=== PATIENT | male | born 1970 | race Caucasian/White ===

== ENCOUNTER → 2017-09-18 16:52 | Outpatient (REF) | payer BC, SELFPAY ==
[2017-09-18 19:16] LABS: Basophils # 0.1 K/mm3 (0-0.2); Eosinophils # 0.2 K/mm3 (0.0-0.4); Eosinophils % 1.9 % (0.1-12.0); Hemoglobin 16.6 g/dL (14.1-18.0); Lymphocytes # 3.1 K/mm3 (0.7-4.5); Lymphocytes % 31.3 K/mm3 (10-50); Mean Corpuscular HGB Conc 32.5 g/dL (31.8-35.4); Mean Corpuscular Hemoglobin 29.7 pg (27.0-31.2); Mean Corpuscular Volume 91.5 fl (80-94); Mean Platelet Volume 7.8 fl (7.4-10.4); Monocytes # 0.8 K/mm3 (0.1-1.0); Monocytes % 8.5 % (1.7-9.3); Neutrophils # 5.6 K/mm3 (1.8-7.8); Neutrophils % 57.3 % (37.0-80.0); Platelet Count 533 K/mm3 (142-424); Red Blood Count 5.57 M/mm3 (4.60-6.20); Red Cell Distribution Width 12.9 % (11.5-17.5); White Blood Count 9.8 K/mm3 (4.8-10.8)
[2017-09-18 20:20] LABS: Erythrocyte Sedimentation Rate 18 mm/hr (0-15)
[2017-09-18 20:49] LABS: Alanine Aminotransferase 41 U/L (12-78); Albumin Level 4.7 gm/dL (3.4-5.0); Albumin/Globulin Ratio 1.2 (1.1-1.8); Alkaline Phosphatase 149 U/L (46-116); Anion Gap 15.2 mEq/L (5-15); Aspartate Amino Transferase 30 U/L (15-37); Bilirubin,Total 0.3 mg/dL (0.2-1.0); Blood Urea Nitrogen 16 mg/dL (7-18); Calcium 9.6 mg/dL (8.5-10.1); Carbon Dioxide 28 mmol/L (21.0-32.0); Chloride 103 mmol/L (98-107); Creatinine,Serum 0.82 mg/dL (0.70-1.30); Estimated Glomerular Filt Rate 100 ml/min (>60); GFR (African American) 121 ML/MIN (>60); Globulin 3.8 gm/dl (1.3-3.2); Glucose 59 mg/dL (74-106); Potassium 5.2 mmoL/L (3.5-5.1); Sodium 141 mmol/L (136-145); Thyroid Stimulating Hormone 0.94 uIU/ml (0.358-3.740); Total Protein,Serum 8.5 gm/dL (6.4-8.2)
[2017-09-19 13:44] LABS: Amphetamine/Metha Screen,Urine Negative ng/mL (<1000); Barbiturates Screen,Urine Negative ng/mL (<200); Benzodiazepines Screen,Urine Positive ng/mL (200); Cannabinoid Screen,Urine Positive ng/mL (<50); Cocaine Screen,Urine Negative ng/g (<300); Methadone Screen,Urine Negative ng/mL (<300); Opiate Screen,Urine Negative ng/mL (<300); Phencyclidine Screen,Urine Negative ng/mL (<25)
== END ==
LOC: LAB 16:52
PROVIDERS: Visit Provider Emergency Medicine
DX: R41.3 Other amnesia (principal); Z79.899 Other long term (current) drug therapy
CPT/HCPCS: 80053; 80305; 84439; 84443; 85025; 85651

== ENCOUNTER → 2017-09-19 09:55 | Outpatient (REF) | payer BC, SELFPAY | LOC: LAB 09:55 | PROVIDERS: Visit Provider Emergency Medicine ==

== ENCOUNTER → 2017-10-07 14:55 | Outpatient (CLI) | payer BC, SELFPAY ==
--- NOTE | 2017-10-07 14:58 | CT_ITS ---
CT head/brain wo con Ordering Physician: Bhavin Ring MD Patient Age: 47 years: Male HISTORY: Memory loss. No trauma. TECHNIQUE: Helical CT scanning performed through the head and brain and bone windows performed and reviewed. COMPARISON :None FINDINGS No acute intracranial findings. The brain with is normal limits no mass lesion. No territorial infarct. No subdural collection. Ventricles and basal cisterns appear satisfactory. There may be some very subtle early cerebral atrophy which is slightly more evident than typically seen for 47-year-old. Posterior fossa is unremarkable . Skull is intact. Scant mucosal thickening ethmoid air cells. Sphenoid and frontal sinuses clear. Maxillary sinuses not included Middle ear clear. IACs satisfactory. Mastoid air cells are fairly well-developed with a few opacified air cells inferiorly on right reflecting minor mastoid effusion. No acute findings here... IMPRESSION: 1. No acute intracranial findings. Note above
== END ==
PROVIDERS: PCP Emergency Medicine; Visit Provider Emergency Medicine
DX: R41.3 Other amnesia (principal)
CPT/HCPCS: 70450

== ENCOUNTER → 2017-10-16 14:47 | Outpatient (REF) | payer BC, SELFPAY ==
[2017-10-16 19:21] LABS: Amphetamine/Metha Screen,Urine Negative ng/mL (<1000); Barbiturates Screen,Urine Negative ng/mL (<200); Benzodiazepines Screen,Urine Positive ng/mL (200); Cannabinoid Screen,Urine Positive ng/mL (<50); Cocaine Screen,Urine Negative ng/g (<300); Methadone Screen,Urine Negative ng/mL (<300); Opiate Screen,Urine Negative ng/mL (<300); Phencyclidine Screen,Urine Negative ng/mL (<25)
== END ==
LOC: LAB 14:47
PROVIDERS: Visit Provider Emergency Medicine
DX: Z79.899 Other long term (current) drug therapy (principal)
CPT/HCPCS: 80305

== ENCOUNTER → 2017-11-13 17:01 | Outpatient (CLI) | payer SELFPAY ==
[2017-11-13 20:01] LABS: Amphetamine/Metha Screen,Urine Negative ng/mL (<1000); Barbiturates Screen,Urine Negative ng/mL (<200); Benzodiazepines Screen,Urine Positive ng/mL (200); Cannabinoid Screen,Urine Positive ng/mL (<50); Cocaine Screen,Urine Negative ng/g (<300); Methadone Screen,Urine Negative ng/mL (<300); Opiate Screen,Urine Negative ng/mL (<300); Phencyclidine Screen,Urine Negative ng/mL (<25)
== END ==
PROVIDERS: Visit Provider Emergency Medicine
DX: Z79.899 Other long term (current) drug therapy (principal)
CPT/HCPCS: 80305

== ENCOUNTER → 2017-12-11 14:11 | Outpatient (REF) | payer BC, SELFPAY ==
[2017-12-11 20:06] LABS: Amphetamine/Metha Screen,Urine Negative ng/mL (<1000); Barbiturates Screen,Urine Negative ng/mL (<200); Benzodiazepines Screen,Urine Negative ng/mL (200); Cannabinoid Screen,Urine Negative ng/mL (<50); Cocaine Screen,Urine Negative ng/g (<300); Methadone Screen,Urine Negative ng/mL (<300); Opiate Screen,Urine Negative ng/mL (<300); Phencyclidine Screen,Urine Negative ng/mL (<25)
== END ==
LOC: LAB 14:11
PROVIDERS: Visit Provider Emergency Medicine
DX: Z79.899 Other long term (current) drug therapy (principal)
CPT/HCPCS: 80305

== ENCOUNTER → 2018-01-08 16:34 | Outpatient (REF) | payer BC, SELFPAY ==
[2018-01-08 20:44] LABS: Amphetamine/Metha Screen,Urine Negative ng/mL (<1000); Barbiturates Screen,Urine Negative ng/mL (<200); Benzodiazepines Screen,Urine Positive ng/mL (200); Cannabinoid Screen,Urine Positive ng/mL (<50); Cocaine Screen,Urine Negative ng/g (<300); Methadone Screen,Urine Negative ng/mL (<300); Opiate Screen,Urine Positive ng/mL (<300); Phencyclidine Screen,Urine Negative ng/mL (<25)
== END ==
LOC: LAB 16:34
PROVIDERS: Visit Provider Emergency Medicine
DX: Z79.899 Other long term (current) drug therapy (principal)
CPT/HCPCS: 80305

== ENCOUNTER → 2018-02-10 08:35 | Outpatient (CLI) | payer BC, SELFPAY ==
[2018-02-11 13:08] LABS: Amphetamine/Metha Screen,Urine Negative ng/mL (<1000); Barbiturates Screen,Urine Negative ng/mL (<200); Benzodiazepines Screen,Urine Negative ng/mL (200); Cannabinoid Screen,Urine Positive ng/mL (<50); Cocaine Screen,Urine Negative ng/g (<300); Methadone Screen,Urine Negative ng/mL (<300); Opiate Screen,Urine Negative ng/mL (<300); Phencyclidine Screen,Urine Negative ng/mL (<25)
== END ==
PROVIDERS: Visit Provider Emergency Medicine
DX: Z79.899 Other long term (current) drug therapy (principal)
CPT/HCPCS: 80305

== ENCOUNTER → 2018-03-11 15:48 | Outpatient (REF) | payer BC, SELFPAY ==
[2018-03-11 18:44] LABS: Amphetamine/Metha Screen,Urine Negative ng/mL (<1000); Barbiturates Screen,Urine Negative ng/mL (<200); Benzodiazepines Screen,Urine Positive ng/mL (<200); Cannabinoid Screen,Urine Positive ng/mL (<50); Cocaine Screen,Urine Negative ng/mL (<300); Methadone Screen,Urine Negative ng/mL (<300); Opiate Screen,Urine Negative ng/mL (<300); Phencyclidine Screen,Urine Negative ng/mL (<25)
== END ==
LOC: LAB 15:48
PROVIDERS: Visit Provider Emergency Medicine
DX: M54.9 Dorsalgia, unspecified (principal)
CPT/HCPCS: 80305

== ENCOUNTER → 2018-04-09 15:29 | Outpatient (REF) | payer BC, SELFPAY ==
[2018-04-09 16:57] LABS: Amphetamine/Metha Screen,Urine Negative ng/mL (<1000); Barbiturates Screen,Urine Negative ng/mL (<200); Benzodiazepines Screen,Urine Positive ng/mL (<200); Cannabinoid Screen,Urine Positive ng/mL (<50); Cocaine Screen,Urine Negative ng/mL (<300); Methadone Screen,Urine Negative ng/mL (<300); Opiate Screen,Urine Negative ng/mL (<300); Phencyclidine Screen,Urine Negative ng/mL (<25)
== END ==
LOC: LAB 15:29
PROVIDERS: Visit Provider Emergency Medicine
DX: M54.9 Dorsalgia, unspecified (principal); Z79.891 Long term (current) use of opiate analgesic
CPT/HCPCS: 80305

== ENCOUNTER → 2018-06-17 13:46 | Outpatient (CLI) | payer BC, SELFPAY ==
[2018-06-17 14:41] LABS: Amphetamine/Metha Screen,Urine Negative ng/mL (<1000); Barbiturates Screen,Urine Negative ng/mL (<200); Benzodiazepines Screen,Urine Positive ng/mL (<200); Cannabinoid Screen,Urine Positive ng/mL (<50); Cocaine Screen,Urine Negative ng/mL (<300); Methadone Screen,Urine Negative ng/mL (<300); Opiate Screen,Urine Negative ng/mL (<300); Phencyclidine Screen,Urine Negative ng/mL (<25)
== END ==
PROVIDERS: PCP Nurse Practitioner Family; Visit Provider Nurse Practitioner Family
DX: Z79.899 Other long term (current) drug therapy (principal)
CPT/HCPCS: 80305

== ENCOUNTER → 2018-07-16 15:00 | Outpatient (CLI) | payer BC, SELFPAY ==
[2018-07-16 15:54] LABS: Amphetamine/Metha Screen,Urine Negative ng/mL (<1000); Barbiturates Screen,Urine Negative ng/mL (<200); Benzodiazepines Screen,Urine Negative ng/mL (<200); Cannabinoid Screen,Urine Positive ng/mL (<50); Cocaine Screen,Urine Negative ng/mL (<300); Methadone Screen,Urine Negative ng/mL (<300); Opiate Screen,Urine Negative ng/mL (<300); Phencyclidine Screen,Urine Negative ng/mL (<25)
== END ==
PROVIDERS: Visit Provider Emergency Medicine
DX: Z79.899 Other long term (current) drug therapy (principal)
CPT/HCPCS: 80305

== ENCOUNTER → 2018-08-13 14:10 | Outpatient (CLI) | payer BC, SELFPAY ==
[2018-08-13 16:19] LABS: Amphetamine/Metha Screen,Urine Negative ng/mL (<1000); Barbiturates Screen,Urine Negative ng/mL (<200); Benzodiazepines Screen,Urine Negative ng/mL (<200); Cannabinoid Screen,Urine Positive ng/mL (<50); Cocaine Screen,Urine Negative ng/mL (<300); Methadone Screen,Urine Negative ng/mL (<300); Opiate Screen,Urine Negative ng/mL (<300); Phencyclidine Screen,Urine Negative ng/mL (<25)
[2018-08-26 11:18] LABS: Oxycodone (GC/MS) 321
[2018-08-26 11:25] LABS: Opiates Negative
[2018-08-26 11:26] LABS: Alprazolam Negative; Benzodiazepines Negative; Flurazepam Negative; Lorazepam Negative
[2018-08-26 11:27] LABS: Clonazepam Negative; Midazolam Negative; Temazepam Negative; Triazolam Negative
== END ==
PROVIDERS: Visit Provider Emergency Medicine
DX: Z79.899 Other long term (current) drug therapy (principal)
CPT/HCPCS: 80305; 80346; 80361; 80365; G0480

== ENCOUNTER → 2018-10-06 14:08 | Outpatient (CLI) | payer BC, SELFPAY ==
--- NOTE | 2018-10-06 14:14 | XR_ITS ---
XR foot wt bearing RT 3V, XR foot wt bearing LT 3V Ordering Physician: Linda Milligan DPM Patient Age: 48 years: Male HISTORY: ITS.REASON: pain TECHNIQUE: Right foot- 3 view weightbearing. Left foot- 3 view weightbearing. COMPARISON :March 2017. Right & left foot RIGHT FOOT Mild hallux valgus deformity again seen. Similar degree.. Mild degenerative changes first MTP joint.. Less evident mild arthritic changes and hypertrophic changes changes along the dorsal aspect talonavicular joint.. Lateral view. Demonstrate pes planus again similar to previous study. Arthritic changes most evident anteriorly aspect ankle joint are most notable. Subchondral cystic changes sclerosis and marginal osteophytes most evident and nearly. There is also some posterior hypertrophy along with prominent posterior process of talus noted...... Plantar Calcaneal spur noted 11 mm mm length. & Similar to previous study. Also generous Spurring posterior calcaneus at the insertion of Achilles tendon again noted. IMPRESSION--------- 1. Arthritic changes most evident anterior aspect of the ankle joint. Also developing arthritic changes talonavicular joint. First MTP joint 2.. Stable Hallux valgus 3. Pes planus. . LEFT FOOT Mild hallux valgus deformity again seen. Similar degree.. Mild degenerative changes first MTP joint.. Arthritic changes at the navicular-first cuneiform articulation again noted with some irregularity and subchondral cystic changes dorsally here. Lateral view. Demonstrate pes planus again similar to previous study. Early Osteophytic changes are seen at the ankle joint anterior and posterior aspect of the dural ankle joint. Prominent posterior process of talus are noted.... Prominent Plantar Calcaneal spur noted up to 14 mm length. & Similar to previous study. Also generous Spurring posterior calcaneus at the insertion of Achilles tendon again noted. IMPRESSION. 1. Stable hallux valgus. 2. Pes planus. 3. At the left foot Arthritic changes most evident at the navicular-first cuneiforms articulation.. Also suggestion of mild arthritic changes at the ankle joint., First MTP joint; & first tarsal metatarsal joint.
== END ==
PROVIDERS: PCP Emergency Medicine; Visit Provider Podiatrist
DX: M79.672 Pain in left foot (principal); M79.671 Pain in right foot
CPT/HCPCS: 73630

== ENCOUNTER → 2018-10-13 14:17 | Outpatient (CLI) | payer BC, SELFPAY ==
[2018-10-13 15:16] LABS: Amphetamine/Metha Screen,Urine Negative ng/mL (<1000); Barbiturates Screen,Urine Negative ng/mL (<200); Benzodiazepines Screen,Urine Negative ng/mL (<200); Cannabinoid Screen,Urine Positive ng/mL (<50); Cocaine Screen,Urine Negative ng/mL (<300); Methadone Screen,Urine Negative ng/mL (<300); Opiate Screen,Urine Negative ng/mL (<300); Phencyclidine Screen,Urine Negative ng/mL (<25)
== END ==
PROVIDERS: Visit Provider Emergency Medicine
DX: Z79.899 Other long term (current) drug therapy (principal)
CPT/HCPCS: 80305

== ENCOUNTER → 2018-12-10 14:30 | Outpatient (CLI) | payer BC, SELFPAY ==
[2018-12-10 15:51] LABS: Amphetamine/Metha Screen,Urine Negative ng/mL (<1000); Barbiturates Screen,Urine Negative ng/mL (<200); Benzodiazepines Screen,Urine Negative ng/mL (<200); Cannabinoid Screen,Urine Positive ng/mL (<50); Cocaine Screen,Urine Negative ng/mL (<300); Methadone Screen,Urine Negative ng/mL (<300); Opiate Screen,Urine Negative ng/mL (<300); Phencyclidine Screen,Urine Negative ng/mL (<25)
[2018-12-19 01:06] LABS: Alprazolam Negative (Cutoff=100); Benzodiazepines Negative ng/mL (Cutoff=100); Clonazepam Negative (Cutoff=100); Codeine Negative (Cutoff=100); Flurazepam Negative (Cutoff=100); Hydrocodone Positive (.); Hydromorphone Negative (Cutoff=100); Lorazepam Negative (Cutoff=100); Midazolam Negative (Cutoff=100); Morphine Negative (Cutoff=100); Temazepam Negative (Cutoff=100); Triazolam Negative (Cutoff=100)
[2018-12-19 08:12] LABS: Opiates Positive (.)
== END ==
PROVIDERS: Visit Provider Emergency Medicine
DX: Z79.899 Other long term (current) drug therapy (principal); F41.9 Anxiety disorder, unspecified; M79.604 Pain in right leg; M79.605 Pain in left leg
CPT/HCPCS: 80305; 80346; 80361; 80365; G0480

== ENCOUNTER → 2018-12-18 10:01 | Outpatient (CLI) | payer BC, SELFPAY ==
--- NOTE | 2018-12-18 10:16 | XR_ITS ---
XR foot wt bearing RT 3V HISTORY: ITS.REASON: Pain and swelling great toe ORDERING PHYSICIAN: Linda Milligan DPM PATIENT AGE: 48 years COMPARISON: 10/06/2018 FINDINGS: There is fracture involving the distal aspect of the proximal phalanx of the great toe. The fracture along the distal aspect of the proximal phalanx evident about the transverse and longitudinal component with a longitudinal component extending into the interphalangeal articular surface. There is minimal displacement of the distal fracture fragment dorsomedially by 1 to 2 mm. Soft tissue swelling is present. There are osteoarthritic changes of the ankle joint with prominent spurring of the dorsal aspect of the talus versus an unusual os trigonum IMPRESSION: 1. Minimally displaced fracture of the proximal phalanx of the great toe with intra-articular involvement at the interphalangeal joint 2. Osteoarthritic changes at the ankle
[2018-12-18 10:23] LABS: Basophils # 0.1 K/mm3 (0-0.2); Basophils % 0.9 % (0.1-2.0); Eosinophils # 0.2 K/mm3 (0.0-0.4); Eosinophils % 2.9 % (0.1-12.0); Hematocrit 44.8 % (42.0-52.0); Hemoglobin 15.1 g/dL (14.1-18.0); Lymphocytes % 26.8 % (10-50); Mean Corpuscular HGB Conc 33.8 g/dL (31.8-35.4); Mean Corpuscular Hemoglobin 30.2 pg (27.0-31.2); Mean Corpuscular Volume 89.5 fl (80-94); Mean Platelet Volume 6.6 fl (7.4-10.4); Monocytes # 0.6 K/mm3 (0.1-1.0); Neutrophils # 4.5 K/mm3 (1.8-7.8); Neutrophils % 61.4 % (37.0-80.0); Platelet Count 555 K/mm3 (142-424); Red Cell Distribution Width 13.6 % (11.5-17.5); White Blood Count 7.3 K/mm3 (4.8-10.8)
[2018-12-18 11:34] LABS: Alanine Aminotransferase 39 U/L (12-78); Albumin Level 4.1 gm/dL (3.4-5.0); Albumin/Globulin Ratio 1.1 (1.1-1.8); Alkaline Phosphatase 140 U/L (46-116); Anion Gap 17.3 mEq/L (5-15); Aspartate Amino Transferase 23 U/L (15-37); Bilirubin,Total 0.4 mg/dL (0.2-1.0); Blood Urea Nitrogen 18 mg/dL (7-18); C-Reactive Protein 0.8 mg/L (0.0-0.9); Calcium 9.5 mg/dL (8.5-10.1); Carbon Dioxide 25 mmol/L (21.0-32.0); Chloride 102 mmol/L (98-107); Creatinine,Serum 0.89 mg/dL (0.70-1.30); Estimated Glomerular Filt Rate 91 ml/min (>60); GFR (African American) 110 ML/MIN (>60); Globulin 3.7 gm/dl (1.3-3.2); Glucose 124 mg/dL (74-106); Potassium 4.3 mmoL/L (3.5-5.1); Sodium 140 mmol/L (136-145); Total Protein,Serum 7.8 gm/dL (6.4-8.2); Uric Acid 4.5 mg/dL (2.6-7.2)
[2018-12-18 12:02] LABS: Erythrocyte Sedimentation Rate 30 mm/hr (0-15)
== END ==
PROVIDERS: Visit Provider Podiatrist
DX: M10.9 Gout, unspecified (principal); M79.674 Pain in right toe(s)
CPT/HCPCS: 36415; 73630; 80053; 84550; 85025; 85651; 86140

== ENCOUNTER → 2019-02-04 13:56 | Outpatient (CLI) | payer BC, SELFPAY ==
[2019-02-04 14:45] LABS: Amphetamine/Metha Screen,Urine Negative ng/mL (<1000); Barbiturates Screen,Urine Negative ng/mL (<200); Benzodiazepines Screen,Urine Positive ng/mL (<200); Cannabinoid Screen,Urine Positive ng/mL (<50); Cocaine Screen,Urine Negative ng/mL (<300); Methadone Screen,Urine Negative ng/mL (<300); Opiate Screen,Urine Negative ng/mL (<300); Phencyclidine Screen,Urine Negative ng/mL (<25)
[2019-02-11 20:13] LABS: Oxycodone (GC/MS) 1421 ng/mL (Cutoff=100)
[2019-02-12 19:10] LABS: Opiates Negative (Cutoff=100); Oxymorphone (GC/MS) 302 ng/mL (Cutoff=100)
== END ==
PROVIDERS: Visit Provider Emergency Medicine
DX: M54.9 Dorsalgia, unspecified (principal)
CPT/HCPCS: 80305; 80361; 80365; G0480

== ENCOUNTER → 2019-04-03 16:53 | Outpatient (CLI) | payer BC, SELFPAY ==
[2019-04-03 18:51] LABS: Amphetamine/Metha Screen,Urine Negative ng/mL (<1000); Barbiturates Screen,Urine Negative ng/mL (<200); Benzodiazepines Screen,Urine Positive ng/mL (<200); Cannabinoid Screen,Urine Positive ng/mL (<50); Cocaine Screen,Urine Negative ng/mL (<300); Methadone Screen,Urine Negative ng/mL (<300); Opiate Screen,Urine Negative ng/mL (<300); Phencyclidine Screen,Urine Negative ng/mL (<25)
== END ==
PROVIDERS: Visit Provider Emergency Medicine
DX: Z79.899 Other long term (current) drug therapy (principal)
CPT/HCPCS: 80305

== ENCOUNTER → 2019-04-27 09:07 | Outpatient (POV) | payer BC, SELFPAY | PROVIDERS: Visit Provider Specialist | DX: M54.16 Radiculopathy, lumbar region (principal); M79.662 Pain in left lower leg; M79.661 Pain in right lower leg | CPT/HCPCS: 95886; 95909 ==

== ENCOUNTER → 2019-06-01 16:18 | Outpatient (CLI) | payer BC, SELFPAY ==
[2019-06-02 14:31] LABS: Amphetamine/Metha Screen,Urine Negative ng/mL (<1000); Barbiturates Screen,Urine Negative ng/mL (<200); Benzodiazepines Screen,Urine Negative ng/mL (<200); Cannabinoid Screen,Urine Negative ng/mL (<50); Cocaine Screen,Urine Negative ng/mL (<300); Methadone Screen,Urine Negative ng/mL (<300); Opiate Screen,Urine Negative ng/mL (<300); Phencyclidine Screen,Urine Negative ng/mL (<25)
[2019-06-08 15:09] LABS: Alprazolam Negative (Cutoff=100); Benzodiazepines Positive ng/mL (Cutoff=100); Clonazepam Negative (Cutoff=100); Flurazepam Negative (Cutoff=100); Lorazepam Negative (Cutoff=100); Midazolam Negative (Cutoff=100); Oxycodone (GC/MS) 1028 ng/mL (Cutoff=100); Oxymorphone (GC/MS) 184 ng/mL (Cutoff=100); Temazepam Positive (.); Triazolam Negative (Cutoff=100)
[2019-06-09 14:59] LABS: Opiates Negative (Cutoff=100)
== END ==
PROVIDERS: Visit Provider Emergency Medicine
DX: Z79.899 Other long term (current) drug therapy (principal); G62.9 Polyneuropathy, unspecified
CPT/HCPCS: 80305; 80346; 80361; 80365; G0480

== ENCOUNTER → 2019-07-29 14:36 | Outpatient (CLI) | payer BC, SELFPAY ==
[2019-07-29 16:36] LABS: Amphetamine/Metha Screen,Urine Negative ng/mL (<1000); Barbiturates Screen,Urine Negative ng/mL (<200); Benzodiazepines Screen,Urine Positive ng/mL (<200); Cannabinoid Screen,Urine Positive ng/mL (<50); Cocaine Screen,Urine Negative ng/mL (<300); Methadone Screen,Urine Negative ng/mL (<300); Opiate Screen,Urine Negative ng/mL (<300); Phencyclidine Screen,Urine Negative ng/mL (<25)
== END ==
PROVIDERS: Visit Provider Emergency Medicine
DX: M54.9 Dorsalgia, unspecified (principal)
CPT/HCPCS: 80305

== ENCOUNTER → 2019-09-28 13:31 | Outpatient (CLI) | payer BC, SELFPAY ==
[2019-09-28 16:37] LABS: Amphetamine/Metha Screen,Urine Negative ng/mL (<1000); Barbiturates Screen,Urine Negative ng/mL (<200); Benzodiazepines Screen,Urine Negative ng/mL (<200); Cannabinoid Screen,Urine Positive ng/mL (<50); Cocaine Screen,Urine Negative ng/mL (<300); Methadone Screen,Urine Negative ng/mL (<300); Opiate Screen,Urine Negative ng/mL (<300); Phencyclidine Screen,Urine Negative ng/mL (<25)
[2019-10-13 01:17] LABS: Alprazolam Negative (Cutoff=100); Benzodiazepines Negative ng/mL (Cutoff=100); Clonazepam Negative (Cutoff=100); Flurazepam Negative (Cutoff=100); Lorazepam Negative (Cutoff=100); Midazolam Negative (Cutoff=100); Oxycodone (GC/MS) 493 ng/mL (Cutoff=100); Temazepam Negative (Cutoff=100); Triazolam Negative (Cutoff=100)
[2019-10-13 08:03] LABS: Opiates Negative (Cutoff=100)
== END ==
PROVIDERS: Visit Provider Emergency Medicine
DX: Z79.899 Other long term (current) drug therapy (principal)
CPT/HCPCS: 80305; 80346; 80361; 80365; G0480

== ENCOUNTER → 2019-09-29 10:26 | Outpatient (CLI) | payer BC, SELFPAY ==
--- NOTE | 2019-09-29 10:27 | XR_ITS ---
PROCEDURE: XR ANKLE WT BEARING LT MIN 3V CLINICAL INDICATION: Pain COMPARISON: No exams were available for comparison FINDINGS: There is generalized vascular calcification. There are mild osteoarthritic changes the ankle joint with osteophyte formation of the distal tibia. There is a prominent posterior talar process. Small calcaneal spur is also present. IMPRESSION: Osteoarthritis with prominent posterior talar process Dictated by: José Miguel Moreno MD 09/29/2019 12:02 Electronically signed by José Miguel Moreno MD in [place] 09/29/2019 12:02
--- NOTE | 2019-09-29 10:27 | XR_ITS ---
PROCEDURE: XR FOOT WT BEARING LT 3V CLINICAL INDICATION: pain COMPARISON: FTR3 FOOT-RT-3 VIEWS from 04/04/2017 FTL3 FOOT-LT-3 VIEWS from 04/04/2017 FTWBR3 XR foot wt bearing RT 3V from 10/06/2018 [id number] XR foot wt bearing LT 3V from 10/06/2018 FINDINGS: No fracture or dislocation. No lytic or blastic change. There is normal mineralization. There are mild osteoarthritic changes at the 1st MTP joint. Osteoarthritis is also present at the navicular cuneiform joint and talonavicular joint. There is mild pes planus Other findings:There is a prominent posterior talar process. Small calcaneal spurs noted. IMPRESSION: Osteoarthritic changes as described above. Prominent posterior talar process with pes planus. Overall no significant change from 10/06/2018 Dictated by: José Miguel Moreno MD 09/29/2019 11:59 Electronically signed by José Miguel Moreno MD in [place] 09/29/2019 11:59
--- NOTE | 2019-09-29 10:27 | XR_ITS ---
PROCEDURE: XR FOOT WT BEARING RT 3V CLINICAL INDICATION: Pain COMPARISON: FTR3 FOOT-RT-3 VIEWS from 04/04/2017 FTL3 FOOT-LT-3 VIEWS from 04/04/2017 FTWBR3 XR foot wt bearing RT 3V from 10/06/2018 FTWBL3 XR foot wt bearing LT 3V from 10/06/2018 FINDINGS: There are mild osteoarthritic changes at the 1st metatarsophalangeal joint with minimal hallux valgus and bunion formation at the distal aspect of the 1st metatarsal. Bony spurring is present dorsally at the talonavicular joint and there are mild degenerative changes at the calcaneocuboid joint. There is mild pes planus. There is a prominent os trigonum in there is a small calcaneal spur. Other findings:Overall no significant change from the previous exam IMPRESSION: Osteoarthritic change 1st MTP joint with bunion formation with pes planus and osteoarthritis of the calcaneocuboid and talonavicular joint Dictated by: José Miguel Moreno MD 09/29/2019 11:57 Electronically signed by José Miguel Moreno MD in [place] 09/29/2019 11:57
--- NOTE | 2019-09-29 10:27 | XR_ITS ---
PROCEDURE: XR ANKLE WT BEARING RT MIN 3V CLINICAL INDICATION: pain Pain COMPARISON: No exams were available for comparison FINDINGS: There is mild eversion of the talus. There are osteoarthritic changes at the ankle joint with loss of joint space laterally and anteriorly with osteophyte formation of the anterior distal tibia and posterior tibia. There is a prominent os trigonum versus an old fracture of posterior talar process. IMPRESSION: Degenerative changes as described above with prominent os trigonum Dictated by: José Miguel Moreno MD 09/29/2019 12:00 Electronically signed by José Miguel Moreno MD in [place] 09/29/2019 12:00
== END ==
PROVIDERS: PCP Emergency Medicine; Visit Provider Podiatrist
DX: M19.072 Primary osteoarthritis, left ankle and foot (principal); M19.071 Primary osteoarthritis, right ankle and foot; M76.822 Posterior tibial tendinitis, left leg; M76.821 Posterior tibial tendinitis, right leg; S92.411A Displaced fracture of proximal phalanx of right great toe, initial encounter for closed fracture
CPT/HCPCS: 73610; 73630

== ENCOUNTER → 2020-05-23 12:53 | Outpatient (POV) | payer BC, SELFPAY ==
[2020-05-23 13:16] VITALS: BP 142/77; PULSE 72; RESP 18; TEMP 36.6; O2SAT 99; BMI 39.6
--- NOTE | 2020-05-23 13:53 | HMH.PMCON ---
Assessment and Plan (1) Degenerative joint disease (DJD) of lumbar spine Status: Chronic Category: Medical Code(s): M47.816 - Spondylosis without myelopathy or radiculopathy, lumbar region (2) Lumbar radiculopathy Status: Chronic Category: Medical Code(s): M54.16 - Radiculopathy, lumbar region (3) Sacroiliitis Status: Chronic Category: Medical Code(s): M46.1 - Sacroiliitis, not elsewhere classified (4) Trochanteric bursitis Status: Chronic Category: Medical Code(s): M70.60 - Trochanteric bursitis, unspecified hip - Assessment and plan all Dx Assessment and Plan for all problems:: The patient is managed with oral medications, however, it is not helping him with his pain at this time. He does have notable tenderness over his left SI joint as well as trochanteric bursa. We will schedule him for a left SI joint injection and left trochanteric bursa injection to see if he gets relief. If the patient does not get relief, we will proceed with a lumbar epidural steroid injection. We will plan to see him back in the clinic after his injections to reassess his symptoms. He has been instructed to contact the clinic if he has any concerns before his next appointment. The patient and I specifically discussed risk factors for COVID19. These risks include, but are not limited to age greater than 60, heart or lung disease, diabetes, immunosuppression, and travel. We also discussed NSAIDs may worsen COVID19 infection or symptoms. Patient should not use NSAIDs to treat COVID19 signs or symptoms. Patient was also informed that any type of corticosteroid of any form (oral or injection) will decrease the patient's immune system response and may increase the likelihood of COVID19 infection and symptoms[address] Dr. Teran has reviewed this note and agrees with this plan of care. This note was dictated using voice recognition software and make contain errors or omissions. HPI - Data of Consult Patient: new to practice Consult date: 05/23/20 Requesting Physician: Mel Clement APRN Primary Care Provider: Bhavin Ring MD - Consult Narrative Reason for consult: Low back pain, left hip pain History of present illness: Mr. Burgess is a 49 year old male who presents today for consultation for left low back pain with radiation into his left hip and left leg as well as its left foot. Patient is being seen by Dr. Curtis for chronic pain. He says he does have numbness and tingling into his feet. He says that his pain is worse on the left side, however. He is managed by oral medications by his primary care provider Dr. Ring. Patient rates his pain a 7 out of 10. He says the pain is worse when he is laying down along with prolonged sitting. He says that he does get relief when he repositions or when he is not on his left side. Patient says he finds himself leaning to the left side often with ambulation. He also says that he has left shoulder pain and unable to raise his arm above his head. He also reports to have right hand pain with numbness and tingling. CC: Mel Clement APRN [facility] History I have reviewed the patient's past medical history: Yes Medical History: Reports:: Anxiety, Depression, Hyperlipidemia, Hypertension Denies:: Cancer, Diabetes Mellitus Type 1, Diabetes Mellitus Type 2, MRSA, Renal Disease, Renal Insufficiency *Have you ever received a pneumonia vaccine?: Yes *Have you received a flu vaccine this season?: Yes Other Medical History: Reports: Arthritis, Sinus Problems Other Surgeries: Yes: Appendectomy Amputation: No Fractures: No - *Social History Smoking Status: Never smoker Tobacco Type: cigarettes # Packs/Day (cigarettes): 2 Alcohol Intake: never Alcohol Intake Frequency:: other Substance Use Type: marijuana Last Used Substance: hours (ago) *Occupational Status:: employed Housing: house Household Members: other *Travel in the last 8 weeks: None - Psychiatric History Pschychiatric Hist
== END ==
PROVIDERS: PCP Emergency Medicine; Visit Provider Clinical Nurse Specialist Family Health
DX: M47.896 Other spondylosis, lumbar region (principal); M54.16 Radiculopathy, lumbar region; M46.1 Sacroiliitis, not elsewhere classified; M70.60 Trochanteric bursitis, unspecified hip
CPT/HCPCS: 99202

== ENCOUNTER 2020-06-03 13:05 | Day surgery (SDC) | payer BC, SELFPAY ==
[2020-06-03 13:51] VITALS: BP 124/75; BP 137/75; PULSE 76; PULSE 77; RESP 18; TEMP 36.7; O2SAT 97; BMI 39.6
[2020-06-03 14:10] VITALS: BP 133/88; PULSE 85; RESP 18
[2020-06-03 14:11] VITALS: BP 138/89; PULSE 85; RESP 18; O2SAT 98
--- NOTE | 2020-06-03 14:20 | HMH.PMPROC ---
- Procedure Date: 06/03/20 Time: 14:20 Anesthesiologist:: Nicho Teran MD Complications:: None Pre-procedure Diagnosis:: Sacroiliitis and trochanteric bursitis Post-procedure Diagnosis:: Same Indications for Procedure:: This patient is a pleasant 49-year-old white male who we are treating for left hip pain. He has tenderness over the left SI joint and left under bursa. He has a positive Sal's test on left side, positive Carmita test on the left side and positive SI joint compression test on left side. We will do a left SI joint injection also he is tender over left trochanteric bursa. We will do a left ureteric bursa injection under fluoroscopy as well. Procedure Details:: Left SI joint injection under fluoroscopy Informed consent was obtained and the risks and benefits of the procedure was explained to the patient. Patient was taken to the procedure room. Patient was placed prone on the procedure table. The left hip was prepped using ChloraPrep. The skin and subcutaneous tissues were anesthetized using lidocaine. I placed a 22-gauge spinal needle into the inferior aspect of the left SI joint. Needle placement was confirmed with dye. After this we injected 5 mL bupivacaine 0.25% and Depo-Medrol 40 mg into the left SI joint. The patient tolerated the procedure well with no complication. Left trochanteric bursa injection under fluoroscopy Informed consent was obtained the risk and benefits of the procedure were explained to the patient. The tip was prepped using ChloraPrep. A 22G needle was inserted into the left trochanteric bursa. Needle placement confirmed with dye. After this we injected 5 mL bupivacaine 0.25% and Depo-Medrol 40 mg into the left trochanteric bursa. Patient tolerated the procedure well with no complications. Plan and Disposition:: Follow-up with him in 2 weeks. Will reevaluate symptoms at that time.
== END 2020-06-03 14:25 | disposition home or self-care (01) ==
LOC: SC.PAINP 13:06
PROVIDERS: PCP Emergency Medicine; Visit Provider Anesthesiology
DX: M46.1 Sacroiliitis, not elsewhere classified (principal); M70.62 Trochanteric bursitis, left hip; I10 Essential (primary) hypertension; F32.9 Major depressive disorder, single episode, unspecified; Z72.0 Tobacco use; E78.5 Hyperlipidemia, unspecified; F41.9 Anxiety disorder, unspecified; Z90.49 Acquired absence of other specified parts of digestive tract
CPT/HCPCS: 20610; 27096; 77002; G0260; J1030; Q9966

== ENCOUNTER → 2020-06-30 14:09 | Outpatient (POV) | payer BC, SELFPAY ==
[2020-06-30 14:21] VITALS: BP 160/82; PULSE 76; RESP 20; TEMP 36.7; O2SAT 95; BMI 39.6
--- NOTE | 2020-07-03 13:32 | P.CONS_ITS ---
[facility] Pain Management SOAP Note Subjective:: Patient is a pleasant 50-year-old white male who presents today for follow-up after left SI joint injection left greater trochanteric bursa injection. Patient did not get any relief from this. He rates his pain a 7 out of 10. He has no new imaging. Patient's pain is in his low back and radiating at times down his left leg. We discussed getting an MRI given the severity of his symptomology. Patient did not get any relief from injection therapy he is tried and failed medication management for over 6 months with his primary care physician. He is not done well with this. We will move forward with ordering a lumbar MRI to help determine pathology. Patient is agreeable ROS General: no recent weight change, no fever, no sleep disturbances Respiratory: no cough, no shortness of air, no recurring pulmonary infections Cardiovascular/Peripheral Vascular: No chest pain, No palpitations, no edema, no shortness of breath. Gastrointestinal: no new onset incontinence, normal bowel movements reported Genitourinary: no new onset incontinence Musculoskeletal: Back pain, leg pain Psychiatric: normal mood/ affect Neurological: [denies new onset weakness in extremities], [denies new onset balance issues] Objective:: Physical Exam General: Alert and oriented x3, no acute distress, pleasant and cooperative, [on room air] Lungs: Resps E/U, Symmetrical chest expansion, Eyes: PERRL Musculoskeletal: Flexion and extension of lumbar spine somewhat guarded secondary to pain, deep tendon reflexes normal, strength in upper and lower extremities [5/5], [abnormal gait noted] Neurological: speech clear, business management specialist equal, no gross sensory deficits Assessment:: Back pain, leg pain, SI joint pain Plan:: Patient has had over 6 months of conservative treatment including medication management, injective therapy. We will move forward with a lumbar MRI to help determine pathology. He may be a candidate for additional injections including epidural steroid injections or potentially a surgical consultation. I will follow-up with him after his MRI reassess his symptoms at that time he has been instructed to call the office if he has any issues prior to his next appointment. Dr. Teran has reviewed this note and agrees with this plan of care. This note was dictated using voice recognition software and may contain errors or omissions [facility] History I have reviewed the patient's past medical history: Yes Medical History: Reports:: Anxiety, Depression, Hyperlipidemia, Hypertension Denies:: Cancer, Diabetes Mellitus Type 1, Diabetes Mellitus Type 2, MRSA, Renal Disease, Renal Insufficiency, Seizures *Have you ever received a pneumonia vaccine?: No *Have you received a flu vaccine this season?: Yes Other Medical History: Reports: Arthritis, Sinus Problems. Denies: Blood Transfusion Reaction Other Surgeries: Yes: Appendectomy Amputation: No Fractures: No - *Social History Smoking Status: Current every day smoker Tobacco Type: cigarettes # Packs/Day (cigarettes): 1 Alcohol Intake: never Alcohol Intake Frequency:: other Substance Use Type: marijuana *Occupational Status:: other Housing: house Household Members: other *Travel in the last 8 weeks: None - Psychiatric History Pschychiatric History:: Reports:: Anxiety, Depression Family Hx:: Unable to obtain
== END ==
PROVIDERS: PCP Emergency Medicine; Visit Provider Clinical Nurse Specialist Family Health
DX: M46.1 Sacroiliitis, not elsewhere classified (principal); M54.9 Dorsalgia, unspecified; M79.606 Pain in leg, unspecified
CPT/HCPCS: 99212

== ENCOUNTER → 2020-07-11 14:06 | Outpatient (CLI) | payer BC, SELFPAY ==
--- NOTE | 2020-07-11 14:10 | MR_ITS ---
PROCEDURE: MR LUMBAR SPINE WO CON CLINICAL INDICATION: LOW BACK PAIN LOW BACK PAIN, BILATERAL LEG NUMBNESS, TINGLING IN FEET. NO INJURY, SYMPTOMS X10 YEARS. COMPARISON: MR EDUCATION RN/O MRI-L-SPINE W/O from 09/28/2016 TECHNIQUE: Standard multiplanar multiecho sequences are performed without contrast. 3-D MIP and myelographic images are also rendered and reviewed FINDINGS: There is normal alignment. The spinal cord ends at the T12-L1 level. T12-L1: Mild degenerative disc disease with small anterior osteophytes. L1-L2: Unremarkable. L2-L3: Minimal bulging disc with mild facet ligamentum hypertrophy with mild bilateral foraminal narrowing. L3-L4: Unremarkable. L4-5: There is minimal anterolisthesis of L4 of 3 mm with concentric bulging disc along with moderate facet and ligamentum hypertrophy with narrowing of the canal with severe left-sided foraminal narrowing and moderate right foraminal narrowing. There is a broad-based left-sided foraminal disc protrusion which has developed since the previous exam. There is a small central disc osteophyte complex not significantly changed. L5-S1: Facet ligamentum hypertrophy with mild left-sided foraminal narrowing not significantly changed. No extruded herniated disc are evident. IMPRESSION: 1. Mild multilevel lumbar spondylosis as described above. Please see above for detailed description at each level. 2. At L4-5, there is minimal anterolisthesis of L4 of 3 mm with concentric bulging disc along with moderate facet and ligamentum hypertrophy with narrowing of the canal with severe left-sided foraminal narrowing and moderate right foraminal narrowing. There is a broad-based left-sided foraminal disc protrusion which has developed since the previous exam. There is a small central disc osteophyte complex not significantly changed. 3. No extruded herniated disc. Dictated by: José Miguel Moreno MD 07/13/2020 11:25 José Miguel Moreno MD in [place] 07/13/2020 11:25
== END ==
PROVIDERS: PCP Emergency Medicine; Visit Provider Clinical Nurse Specialist Family Health
DX: M54.5 Low back pain (principal)
CPT/HCPCS: 72148; 76376

== ENCOUNTER → 2020-07-12 11:48 | Outpatient (CLI) | payer BC, SELFPAY ==
[2020-07-18 11:55] LABS: Chloride 104 mmol/L (98-107); Potassium 5.6 mmoL/L (3.5-5.1); Sodium 138 mmol/L (136-145)
[2020-07-18 11:57] LABS: Alanine Aminotransferase 32 U/L (12-78); Alkaline Phosphatase 131 U/L (38-126); Aspartate Amino Transferase 34 U/L (17-59); Bilirubin,Total 0.4 mg/dl (0.2-1.3); Blood Urea Nitrogen 15 mg/dl (9-20); Estimated Glomerular Filt Rate 89 ml/min (>60); GFR (African American) 108 ML/MIN (>60)
[2020-07-18 11:58] LABS: Albumin Level 4.8 g/dl (3.5-5.0); Albumin/Globulin Ratio 1.5 (1.1-1.8); Anion Gap 12.6 mEq/L (5-15); Calcium 10.7 mg/dl (8.4-10.2); Carbon Dioxide 27 mmol/L (22.0-30.0); Chol/HDL Ratio 6.9 (1-3.5); Cholesterol 221 mg/dl (140-200); Globulin 3.2 g/dL (1.3-3.2); Glucose 102 mg/dl (74-100); HDL Cholesterol 32 mg/dl (40-60)
[2020-07-18 12:01] LABS: Triglycerides 469 mg/dl (30-150)
[2020-07-18 12:11] LABS: Direct LDL Cholesterol 110.39 mg/dL (100-129)
[2020-07-18 12:14] LABS: Free T4 (Free Thyroxine) 1.09 ng/dl (0.78-2.19)
[2020-07-18 12:15] LABS: 25-OH Vitamin D, Total 22.4 ng/mL (30-100)
[2020-07-18 12:29] LABS: Prostate Specific Ag Screen 0.3 ng/ml (0.0-4.0); Thyroid Stimulating Hormone 0.54 uIU/mL (0.465-4.68)
[2020-07-18 12:36] LABS: Basophils # 0.1 K/mm3 (0-0.2); Basophils % 1.4 % (0.1-2.0); Eosinophils # 0.3 K/mm3 (0.0-0.4); Eosinophils % 2.9 % (0.1-12.0); Hematocrit 51.9 % (42.0-52.0); Lymphocytes # 2.9 K/mm3 (0.7-4.5); Lymphocytes % 32.5 % (10-50); Mean Corpuscular HGB Conc 32.8 g/dL (31.8-35.4); Mean Corpuscular Hemoglobin 31.7 pg (27.0-31.2); Mean Corpuscular Volume 96.6 fl (80-94); Mean Platelet Volume 9.1 fl (7.4-10.4); Monocytes # 0.6 K/mm3 (0.1-1.0); Neutrophils % 56.3 % (37.0-80.0); Platelet Count 547 K/mm3 (142-424); Red Blood Count 5.37 M/mm3 (4.60-6.20); Red Cell Distribution Width 13.8 % (11.5-17.5); White Blood Count 8.9 K/mm3 (4.8-10.8)
== END ==
PROVIDERS: Visit Provider Emergency Medicine
DX: E66.9 Obesity, unspecified (principal); E55.9 Vitamin D deficiency, unspecified; Z79.899 Other long term (current) drug therapy; Z12.5 Encounter for screening for malignant neoplasm of prostate
CPT/HCPCS: 80053; 80061; 82306; 84439; 84443; 85025; G0103

== ENCOUNTER → 2020-07-28 13:40 | Outpatient (POV) | payer BC, SELFPAY ==
[2020-07-28 13:51] VITALS: BP 125/88; PULSE 74; RESP 18; TEMP 36.2; O2SAT 98; BMI 37.6
--- NOTE | 2020-07-28 14:02 | P.CONS_ITS ---
[facility] Pain Management SOAP Note Subjective:: Patient is a pleasant 50-year-old white male presents today for follow-up after an MRI. He rates pain a 9 out of 10 mostly in his back and down his left leg. Patient has numbness and tingling in his left leg. His recent MRI shows some degenerative changes. Patient does have worsening herniation of his lower level disks. Patient and I discussed neurosurgical consultation I do believe he would benefit from that. He is tried injections with no relief. We will send him to Dr. Enriquez in [facility]. ROS General: no recent weight change, no fever, no sleep disturbances Respiratory: no cough, no shortness of air, no recurring pulmonary infections Cardiovascular/Peripheral Vascular: No chest pain, No palpitations, no edema, no shortness of breath. Gastrointestinal: no new onset incontinence, normal bowel movements reported Genitourinary: no new onset incontinence Musculoskeletal: Back pain, leg pain Psychiatric: normal mood/ affect Neurological: [denies new onset weakness in extremities], [denies new onset balance issues] Objective:: Physical Exam General: Alert and oriented x3, no acute distress, pleasant and cooperative, [on room air] Lungs: Resps E/U, Symmetrical chest expansion, Eyes: PERRL Musculoskeletal: Flexion and extension of lumbar spine somewhat guarded secondary to pain, deep tendon reflexes normal, strength in upper and lower extremities [5/5], [abnormal gait noted] Neurological: speech clear, preschool substitute teacher equal, no gross sensory deficits Assessment:: Disc disease lumbar spine lumbar radiculopathy Plan:: We will send the patient for neurosurgical consultation in regard to his findings on his most recent MRI. Patient has been instructed to call the office if he has any issues prior to his next appointment. He has failed injections and medication therapies. Dr. Teran has reviewed this note and agrees with this plan of care. This note was dictated using voice recognition software and may contain errors or omissions [facility] History I have reviewed the patient's past medical history: Yes Medical History: Reports:: Anxiety, Depression, Hyperlipidemia, Hypertension Denies:: Cancer, Diabetes Mellitus Type 1, Diabetes Mellitus Type 2, MRSA, Renal Disease, Renal Insufficiency, Seizures *Have you ever received a pneumonia vaccine?: Yes *Have you received a flu vaccine this season?: Yes Other Medical History: Reports: Arthritis, Sinus Problems. Denies: Blood Transfusion Reaction Other Surgeries: Yes: Appendectomy Amputation: No Fractures: No - *Social History Smoking Status: Current every day smoker Tobacco Type: cigarettes # Packs/Day (cigarettes): 1 Alcohol Intake: never Alcohol Intake Frequency:: other Substance Use Type: marijuana *Occupational Status:: employed Housing: house Household Members: other *Travel in the last 8 weeks: None - Psychiatric History Pschychiatric History:: Reports:: Anxiety, Depression Family Hx:: Cancer, Diabetes
== END ==
PROVIDERS: PCP Emergency Medicine; Visit Provider Clinical Nurse Specialist Family Health
DX: M51.16 Intervertebral disc disorders with radiculopathy, lumbar region (principal)
CPT/HCPCS: 99212

== ENCOUNTER → 2020-10-11 19:09 | Outpatient (CLI) | payer BC, SELFPAY ==
[2020-10-12 00:09] LABS: Amphetamine/Metha Screen,Urine Negative ng/ml (<1000)
[2020-10-12 00:10] LABS: Barbiturates Screen,Urine Negative ng/ml (<200)
[2020-10-12 00:11] LABS: Benzodiazepines Screen,Urine Positive ng/ml (<200); Cannabinoid Screen,Urine Positive ng/ml (<50)
[2020-10-12 00:12] LABS: Cocaine Screen,Urine Negative ng/ml (<300); Methadone Screen,Urine Negative ng/ml (<300)
[2020-10-12 00:13] LABS: Opiate Screen,Urine Negative ng/ml (<300)
[2020-10-12 00:14] LABS: Phencyclidine Screen,Urine Negative ng/ml (<25)
== END ==
PROVIDERS: Visit Provider Emergency Medicine
DX: Z79.899 Other long term (current) drug therapy (principal)
CPT/HCPCS: 80305

== ENCOUNTER 2020-11-07 08:00 | Outpatient (RCR) | payer BC, SELFPAY | END 2020-11-07 08:05 | disposition home or self-care (01) | LOC: PT 08:00 | PROVIDERS: PCP Emergency Medicine | DX: M48.061 Spinal stenosis, lumbar region without neurogenic claudication (principal); M54.5 Low back pain | CPT/HCPCS: 97010; 97014; 97110; 97140; 97163; G0283 ==

== ENCOUNTER 2020-11-07 19:29 | Emergency (ER) | payer BC, SELFPAY ==
[2020-11-07 19:35] VITALS: BP 146/77; PULSE 76; RESP 20; TEMP 37.1; O2SAT 94; BMI 38.3
--- NOTE | 2020-11-07 20:04 | HMH.EDUTC ---
[facility] [place] Clinical Impression: Strep throat Disposition: Home, Self-Care Condition on Discharge: Good Instructions: Strep Throat, DI for Strep Throat Additional Instructions: Drink plenty of fluids. Take tylenol or ibuprofen for pain or fever. Take the medications as directed. Follow up with your regular doctor. GO TO THE ER FOR ANY WORSENING SYMPTOMS Get a new tooth brush and throw your old one away in a day or so. Prescriptions: Amoxicillin/Potassium Clav [Augmentin 875-125 Tablet] 1 tab PO Q12H 10 Days #20 tab Transmission Status: Received by [facility] predniSONE [Deltasone 10mg tablet] 10 mg PO BID 3 Days #6 tab Transmission Status: Received by [facility] Referrals: Bhavin Ring MD [Primary Care Provider] - Time of Disposition: 20:09 Medical Decision Making - Medical Records Medical records reviewed: No: I reviewed the patient's medical records. - [place] Inquiry Pt receiving controlled substance: No Vital Signs: 11/07/20 19:35 11/07/20 20:10 Temperature 98.7 F 98.7 F Temperature Source Oral Pulse Rate 76 Pulse Rate [Right Brachial] 76 Respiratory Rate 20 20 Blood Pressure 146/77 H Blood Pressure [Right Arm] 146/77 H Blood Pressure Mean [Right Arm] 100 Blood Pressure Source [Right Arm] Automatic Cuff Blood Pressure Position [Right Arm] Sitting 02 Sat by Pulse Oximetry 94 L Oxygen Delivery Method Room Air - Lab Data Lab results reviewed: Yes: I reviewed the patient's lab results. [facility] [place] HPI - General Stated complaint: Pain in Left ear, Jaw Time Seen by Provider: 11/07/20 20:04 Mode of Arrival: Ambulatory Source of Information: Patient Limitations: No Limitations Description of Symptoms (Recalled from Triage Doc. by RN): PATIENT C/O LEFT EAR PAIN AND SINUS CONGESTION SINCE SATURDAY HEENT Symptoms (Recalled from RN notes): Yes Resp Symptoms (Recalled from RN notes): No Skin Symptoms (Recalled from RN notes): No MS Symptoms (Recalled from RN notes): No Functional Status (Recalled from RN notes): WNL - History of Present Illness Provider Complaint: He c/o sore throat and ear pain for the past 2 days. He denies any cough or chest congestion. - Related Data Home Medications Medication Instructions Recorded Confirmed Escitalopram Oxalate See Rx Instructions .ROUTE .COMPLEX 06/03/20 10/11/20 Fluticasone Propionate 1 spray INTRANASAL QDAY 06/03/20 10/11/20 Loratadine [Allergy Relief] 10 mg PO Q24H 06/03/20 10/11/20 Previous Rx's Medication Instructions Recorded cholecalciferol (vitamin D3) 25 25 mcg PO DAILY #90 cap 07/19/20 mcg (1,000 unit) capsule ergocalciferol (vitamin D2) 1,250 1,250 mcg PO WEEKLY #5 cap 07/19/20 mcg (50,000 unit) capsule betamethasone valerate 0.1 % 1 applic TOPICAL BID PRN 14 Days 09/12/20 topical cream #15 g meloxicam 15 mg tablet 15 mg PO ONCE 30 Days #30 tab 09/12/20 diazepam 5 mg tablet 5 mg PO QHS PRN #30 tab 10/11/20 gabapentin 600 mg tablet 600 mg PO QID #120 tab 10/11/20 oxycodone 10 mg tablet 10 mg PO QID PRN #120 tab 10/11/20 allopurinol 300 mg tablet See Rx Instructions .ROUTE 10/17/20 .COMPLEX #90 tab bupropion HCl 150 mg tablet,12 hr See Rx Instructions .ROUTE 10/17/20 sustained-release .COMPLEX #180 each gemfibrozil 600 mg tablet See Rx Instructions .ROUTE 10/17/20 .COMPLEX #180 tab hydrochlorothiazide 12.5 mg tablet 12.5 mg PO DAILY #90 tab 10/17/20 lisinopril 10 mg tablet See Rx Instructions .ROUTE 10/17/20 .COMPLEX #90 tab niacin 500 mg tablet,extended See Rx Instructions .ROUTE 10/17/20 release 24 hr .COMPLEX #90 tablet trazodone 50 mg tablet 50 mg PO QHS #90 tab 10/17/20 Amoxicillin/Potassium Clav 1 tab PO Q12H 10 Days #20 tab 11/07/20 [Augmentin 875-125 Tablet] predniSONE [Deltasone 10mg tablet] 10 mg PO BID 3 Days #6 tab 11/07/20 Allergies Allergy/AdvReac Type Severity Reaction Status Date / Time No Known Allergies Allergy Verified 10/11/20 17:07 - Wo
[2020-11-07 20:10] VITALS: BP 146/77; PULSE 76; RESP 20; TEMP 37.1; O2SAT 94
[2020-11-08 19:41] LABS: UTC Strep Screen (Rapid) Positive (Negative)
== END 2020-11-07 20:16 | disposition home or self-care (01) ==
PROVIDERS: Emergency Provider Nurse Practitioner Family; PCP Emergency Medicine
DX: J02.0 Streptococcal pharyngitis (principal); F41.8 Other specified anxiety disorders; E78.5 Hyperlipidemia, unspecified; I10 Essential (primary) hypertension; F17.210 Nicotine dependence, cigarettes, uncomplicated
CPT/HCPCS: 87880; 99202; G0463

== ENCOUNTER → 2020-12-09 13:36 | Outpatient (CLI) | payer BC, SELFPAY ==
[2020-12-09 14:13] LABS: Amphetamine/Metha Screen,Urine Negative ng/ml (<1000)
[2020-12-09 14:14] LABS: Barbiturates Screen,Urine Negative ng/ml (<200); Benzodiazepines Screen,Urine Positive ng/ml (<200)
[2020-12-09 14:15] LABS: Cannabinoid Screen,Urine Positive ng/ml (<50); Cocaine Screen,Urine Negative ng/ml (<300)
[2020-12-09 14:16] LABS: Methadone Screen,Urine Negative ng/ml (<300)
[2020-12-09 14:17] LABS: Opiate Screen,Urine Negative ng/ml (<300); Phencyclidine Screen,Urine Negative ng/ml (<25)
== END ==
PROVIDERS: Visit Provider Emergency Medicine
DX: Z79.899 Other long term (current) drug therapy (principal)
CPT/HCPCS: 80305

== ENCOUNTER → 2021-02-06 13:58 | Outpatient (CLI) | payer BC, SELFPAY ==
[2021-02-06 17:47] LABS: Benzodiazepines Screen,Urine Positive ng/ml (<200)
[2021-02-06 17:48] LABS: Amphetamine/Metha Screen,Urine Negative ng/ml (<1000)
[2021-02-06 17:49] LABS: Barbiturates Screen,Urine Negative ng/ml (<200); Cannabinoid Screen,Urine Positive ng/ml (<50)
[2021-02-06 17:50] LABS: Cocaine Screen,Urine Negative ng/ml (<300)
[2021-02-06 17:51] LABS: Methadone Screen,Urine Negative ng/ml (<300)
[2021-02-06 17:52] LABS: Opiate Screen,Urine Negative ng/ml (<300)
[2021-02-06 20:57] LABS: Phencyclidine Screen,Urine Negative ng/ml (<25)
== END ==
PROVIDERS: Visit Provider Emergency Medicine
DX: Z79.899 Other long term (current) drug therapy (principal)
CPT/HCPCS: 80305

== ENCOUNTER → 2021-04-05 13:56 | Outpatient (CLI) | payer BC, SELFPAY ==
[2021-04-05 14:57] LABS: Amphetamine/Metha Screen,Urine Negative ng/ml (<1000)
[2021-04-05 14:58] LABS: Barbiturates Screen,Urine Negative ng/ml (<200); Benzodiazepines Screen,Urine Positive ng/ml (<200)
[2021-04-05 14:59] LABS: Cannabinoid Screen,Urine Positive ng/ml (<50)
[2021-04-05 15:00] LABS: Cocaine Screen,Urine Negative ng/ml (<300); Methadone Screen,Urine Negative ng/ml (<300)
[2021-04-05 15:26] LABS: Opiate Screen,Urine Negative ng/ml (<300)
[2021-04-05 15:28] LABS: Phencyclidine Screen,Urine Negative ng/ml (<25)
== END ==
PROVIDERS: Visit Provider Emergency Medicine
DX: M47.816 Spondylosis without myelopathy or radiculopathy, lumbar region (principal)
CPT/HCPCS: 80305

== ENCOUNTER → 2021-05-29 13:44 | Outpatient (CLI) | payer BC, SELFPAY ==
[2021-05-29 18:53] LABS: Amphetamine/Metha Screen,Urine Negative ng/ml (<1000); Barbiturates Screen,Urine Negative ng/ml (<200); Benzodiazepines Screen,Urine Positive ng/ml (<200); Cannabinoid Screen,Urine Positive ng/ml (<50); Cocaine Screen,Urine Negative ng/ml (<300); Methadone Screen,Urine Negative ng/ml (<300); Opiate Screen,Urine Negative ng/ml (<300); Phencyclidine Screen,Urine Negative ng/ml (<25)
== END ==
PROVIDERS: Visit Provider Emergency Medicine
DX: Z79.899 Other long term (current) drug therapy (principal)
CPT/HCPCS: 80305

== ENCOUNTER → 2021-07-28 10:42 | Outpatient (CLI) | payer BC, SELFPAY ==
--- NOTE | 2021-07-28 10:45 | XR_ITS ---
PROCEDURE: XR SHOULDER LT MIN 2V CLINICAL INDICATION: LT shoulder pain COMPARISON: CR SHOU3L [id number] VIEWS from 01/03/2016 FINDINGS: No fracture or dislocation. No lytic or blastic change. There is normal mineralization. Minimal spurring along the inferior aspect of the the humeral head and neck junction. Joint spaces are well preserved. Other findings:None. IMPRESSION: No acute findings. Dictated by: José Miguel Moreno MD 07/28/2021 13:40 José Miguel Moreno MD in [place] 07/28/2021 13:40
== END ==
PROVIDERS: PCP Emergency Medicine; Visit Provider Orthopaedic Surgery
DX: M25.512 Pain in left shoulder (principal)
CPT/HCPCS: 73030

== ENCOUNTER → 2021-07-28 17:32 | Outpatient (CLI) | payer BC, SELFPAY ==
[2021-07-28 19:41] LABS: Amphetamine/Metha Screen,Urine Negative ng/ml (<1000)
[2021-07-28 19:42] LABS: Barbiturates Screen,Urine Negative ng/ml (<200); Benzodiazepines Screen,Urine Positive ng/ml (<200)
[2021-07-28 19:43] LABS: Cannabinoid Screen,Urine Positive ng/ml (<50); Cocaine Screen,Urine Negative ng/ml (<300)
[2021-07-28 19:44] LABS: Methadone Screen,Urine Negative ng/ml (<300)
[2021-07-28 19:45] LABS: Opiate Screen,Urine Negative ng/ml (<300); Phencyclidine Screen,Urine Negative ng/ml (<25)
== END ==
PROVIDERS: Visit Provider Emergency Medicine
DX: M47.816 Spondylosis without myelopathy or radiculopathy, lumbar region (principal)
CPT/HCPCS: 80305

== ENCOUNTER → 2021-08-15 10:21 | Outpatient (CLI) | payer BC, SELFPAY ==
--- NOTE | 2021-08-15 10:25 | XR_ITS ---
PROCEDURE INFORMATION: Exam: XR Right Foot Complete; Alignment Exam date and time: 08/15/2021 10:25 AM Age: 51 years old Clinical indication: Pain; Foot; Right; Additional info: Foot pain TECHNIQUE: Imaging protocol: XR Right foot. Views: 3 or more views. COMPARISON: CR XR FOOT WT BEARING RT 3V 09/29/2019 10:32 AM FINDINGS: Bones/joints: There is no evidence of acute cortical disruption or dislocation. Pes planus deformity. Calcaneal spurs noted. Spur formation is noted along the posterior edge of the talus. There is some spur formation at the ankle. There is a spur along the superomedial edge of the tarsal navicular. Soft tissues: Normal. IMPRESSION: 1. No acute findings. 2. Pes planus deformity. 3. Osteoarthritic change as described.
--- NOTE | 2021-08-15 10:25 | XR_ITS ---
PROCEDURE INFORMATION: Exam: XR Right Ankle Exam date and time: 08/15/2021 10:25 AM Age: 51 years old Clinical indication: Pain; Ankle; Right; Additional info: Ankle pain TECHNIQUE: Imaging protocol: XR Right ankle. Views: 3 or more views. COMPARISON: CR XR ANKLE WT BEARING RT MIN 3V 09/29/2019 10:32 AM FINDINGS: Bones/joints: There is spur formation along the tip of the lateral malleolus. There is lucency lateral edge of the tibia. There is persistent eversion of the talus. Probable spur along posterior edge of the talus. There is an old fracture versus spur along the posterior edge of the distal tibia. Soft tissues: Normal. IMPRESSION: 1. No acute findings. 2. Extensive arthritic change at the right ankle joint, with talar eversion at the ankle mortise.
--- NOTE | 2021-08-15 10:25 | XR_ITS ---
PROCEDURE INFORMATION: Exam: XR Left Foot Complete; Alignment Exam date and time: 08/15/2021 10:25 AM Age: 51 years old Clinical indication: Pain; Foot; Left; Additional info: Foot pain TECHNIQUE: Imaging protocol: XR Left foot. Views: 3 or more views. COMPARISON: CR XR FOOT WT BEARING LT 3V 09/29/2019 10:32 AM FINDINGS: Bones/joints: Calcaneal spurs. Pes planus deformity is unchanged. Small spur at the top of the tarsal navicular is unchanged. There is prominent spur formation along the posterior edge of the talus. There is joint space narrowing at multiple tarsal metatarsal joints. Soft tissues: Normal. IMPRESSION: 1. No acute findings. 2. Pes planus deformity. 3. Osteoarthritic change as described.
--- NOTE | 2021-08-15 10:26 | XR_ITS ---
PROCEDURE INFORMATION: Exam: XR Left Ankle Exam date and time: 08/15/2021 10:26 AM Age: 51 years old Clinical indication: Pain; Ankle; Left; Additional info: Ankle pain TECHNIQUE: Imaging protocol: XR Left ankle. Views: 3 or more views. COMPARISON: CR XR ANKLE WT BEARING LT MIN 3V 09/29/2019 10:32 AM FINDINGS: Bones/joints: There is no evidence of acute cortical disruption or dislocation. There is mild spur formation distal to the medial malleolus. The ankle mortise is intact. There is spur formation along posterior edge of the talus. There is spur formation along the posterior edge of the tibia. Soft tissues: Normal. IMPRESSION: 1. No acute findings. 2. Mild arthritic change involving the left ankle.
== END ==
PROVIDERS: PCP Emergency Medicine; Visit Provider Podiatrist
DX: M79.672 Pain in left foot (principal); M79.671 Pain in right foot; M25.572 Pain in left ankle and joints of left foot; M25.571 Pain in right ankle and joints of right foot
CPT/HCPCS: 73610; 73630

== ENCOUNTER → 2021-09-15 12:05 | Outpatient (CLI) | payer BC, SELFPAY ==
--- NOTE | 2021-09-15 12:12 | XR_ITS ---
FINAL REPORT CLINICAL HISTORY: scaphoid pain FINDINGS: LEFT WRIST Five views demonstrate no acute fracture or dislocation. There are moderately advanced hypertrophic changes at the basilar joint consistent with osteoarthritis. No soft tissue abnormality is seen. IMPRESSION: Changes of osteoarthritis. Reviewed, Interpreted and Dictated by Michael Gtz MD Transcribed by Inés Juares Authenticated by Michael Gtz MD on 09/15/2021 02:18:57 PM [facility]
--- NOTE | 2021-09-15 12:12 | XR_ITS ---
FINAL REPORT CLINICAL HISTORY: external, internal, scap y-- pain no inj FINDINGS: LEFT SHOULDER Three views demonstrate no acute fracture or dislocation. There are mild hypertrophic changes of the a.c. joint. No soft tissue abnormality is seen. IMPRESSION: Mild degenerative changes. Reviewed, Interpreted and Dictated by Michael Gtz MD Transcribed by Inés Juares Authenticated by Michael Gzt MD on 09/15/2021 02:18:48 PM [facility]
--- NOTE | 2021-09-15 12:12 | XR_ITS ---
FINAL REPORT CLINICAL HISTORY: pain-- no known inj FINDINGS: CERVICAL SPINE SERIES Five views demonstrate no fracture. There is no malalignment. The disc spaces are well-preserved. The neural foramina are adequately patent on the oblique views. Note is made of poor dentition. IMPRESSION: No acute process. Reviewed, Interpreted and Dictated by Michael Gtz MD Transcribed by Inés Juares Authenticated by Michael Gtz MD on 09/15/2021 02:18:55 PM [facility]
== END ==
PROVIDERS: PCP Emergency Medicine; Visit Provider Orthopaedic Surgery
DX: M25.512 Pain in left shoulder (principal); M25.532 Pain in left wrist; M54.2 Cervicalgia; Z87.81 Personal history of (healed) traumatic fracture
CPT/HCPCS: 72050; 73030; 73110

== ENCOUNTER → 2021-09-25 16:00 | Outpatient (CLI) | payer BC, SELFPAY ==
[2021-09-25 14:52] LABS: Amphetamine/Metha Screen,Urine Negative ng/ml (<1000); Barbiturates Screen,Urine Negative ng/ml (<200)
[2021-09-25 14:54] LABS: Benzodiazepines Screen,Urine Positive ng/ml (<200)
[2021-09-25 14:55] LABS: Cannabinoid Screen,Urine Positive ng/ml (<50); Cocaine Screen,Urine Negative ng/ml (<300)
[2021-09-25 14:56] LABS: Methadone Screen,Urine Negative ng/ml (<300)
[2021-09-25 14:57] LABS: Opiate Screen,Urine Negative ng/ml (<300); Phencyclidine Screen,Urine Negative ng/ml (<25)
== END ==
PROVIDERS: Visit Provider Emergency Medicine
DX: Z79.899 Other long term (current) drug therapy (principal)
CPT/HCPCS: 80305

== ENCOUNTER → 2021-09-27 15:31 | Outpatient (CLI) | payer BC, SELFPAY ==
--- NOTE | 2021-09-27 15:37 | XR_ITS ---
FINAL REPORT CLINICAL HISTORY: surgery 09/29/21, hypertension FINDINGS: Two views of the chest were obtained. The heart size and pulmonary vascularity are within normal limits. The mediastinum is normal. There is mild left upper lobe atelectasis or scarring. There is no pneumothorax. There is moderate degenerative change of the thoracic spine. IMPRESSION: Mild left upper lobe atelectasis or scarring. Reviewed, Interpreted and Dictated by Sj Vallejo III, MD Transcribed by Alex Lawler Authenticated by Sj Vallejo III, MD on 09/27/2021 04:58:58 PM [facility]
[2021-09-27 17:01] LABS: Basophils # 0.1 K/mm3 (0-0.2); Basophils % 1.2 % (0.1-2.0); Eosinophils # 0.3 K/mm3 (0.0-0.4); Eosinophils % 3.2 % (0.1-12.0); Hematocrit 45.8 % (42.0-52.0); Hemoglobin 15.3 g/dL (14.1-18.0); Lymphocytes # 2.9 K/mm3 (0.7-4.5); Lymphocytes % 34.3 % (10-50); Mean Corpuscular HGB Conc 33.3 g/dL (31.8-35.4); Mean Corpuscular Hemoglobin 31.1 pg (27.0-31.2); Mean Corpuscular Volume 93.3 fl (80-94); Mean Platelet Volume 7.5 fl (7.4-10.4); Monocytes # 0.7 K/mm3 (0.1-1.0); Monocytes % 7.9 % (1.7-9.3); Neutrophils # 4.6 K/mm3 (1.8-7.8); Neutrophils % 53.5 % (37.0-80.0); Platelet Count 558 K/mm3 (142-424); Red Blood Count 4.91 M/mm3 (4.60-6.20); Red Cell Distribution Width 13.6 % (11.5-17.5); White Blood Count 8.5 K/mm3 (4.8-10.8)
[2021-09-27 18:01] LABS: Alanine Aminotransferase 24 U/L (12-78); Albumin Level 4.8 g/dl (3.5-5.0); Albumin/Globulin Ratio 1.8 (1.1-1.8); Alkaline Phosphatase 128 U/L (38-126); Anion Gap 12.8 mEq/L (5-15); Aspartate Amino Transferase 36 U/L (17-59); Bilirubin,Total 0.4 mg/dl (0.2-1.3); Blood Urea Nitrogen 17 mg/dl (9-20); Carbon Dioxide 27 mmol/L (22.0-30.0); Chloride 100 mmol/L (98-107); Estimated Glomerular Filt Rate 89 ml/min (>60); GFR (African American) 107 ML/MIN (>60); Globulin 2.7 g/dL (1.3-3.2); Glucose 89 mg/dl (74-100); Potassium 4.8 mmoL/L (3.5-5.1); Sodium 135 mmol/L (136-145); Total Protein,Serum 7.5 g/dl (6.3-8.2)
== END ==
PROVIDERS: PCP Emergency Medicine; Visit Provider Orthopaedic Surgery
DX: Z01.818 Encounter for other preprocedural examination (principal); Z11.52 Encounter for screening for COVID-19
CPT/HCPCS: 71046; 80053; 85025; C9803; U0003; U0005

== ENCOUNTER → 2021-10-18 16:53 | Outpatient (CLI) | payer MEDICARE, BC, SELFPAY | PROVIDERS: Visit Provider Orthopaedic Surgery | DX: Z01.812 Encounter for preprocedural laboratory examination (principal); Z11.52 Encounter for screening for COVID-19; G56.02 Carpal tunnel syndrome, left upper limb | CPT/HCPCS: C9803; U0003; U0005 ==

== ENCOUNTER 2021-10-20 06:11 | Day surgery (SDC) | payer MEDICARE, BC, SELFPAY ==
[2021-09-27 13:47] VITALS: BMI 33.3
[2021-10-20 06:35] VITALS: BP 112/61; PULSE 66; RESP 18; TEMP 36.4; O2SAT 96
--- NOTE | 2021-10-20 07:53 | HMH.ANESCL ---
[facility] Anesthesia Checklist - Patient Identification Patient Identification: Verbal (Name & ) - Structural Data Admitted From: Home Planned Operative Procedure/s: Left Carpal Tunnel Repair Consent for Planned Operative Procedure(s) Verified: Yes Verified Documents: Surgical Consent - NPO Status Verified Time NPO: 00:00 - Additional verifications Anesthesia Reactions: No Hx Blood Transfusions: No Blood Transfusion Reaction: No - Airway Assessment C-Spine Mobility Assessed: Yes TMJ Mobility Assessed: Yes Dentition: Good Dentition - Neurological Assessment Level of Consciousness: Awake, Alert - Anesthesia Plan Anesthesia Risk discussed: Yes ASA Class: III Anesthesia Type: MAC [facility] History Medical History: Reports:: Anxiety, Depression, Hyperlipidemia, Hypertension Denies:: Cancer, Diabetes Mellitus Type 1, Diabetes Mellitus Type 2, Internal Pacemaker, MRSA, Renal Disease, Renal Insufficiency, Seizures *Have you ever received a pneumonia vaccine?: Yes *Have you received a flu vaccine this season?: Yes Other Medical History: Reports: Arthritis, Sinus Problems. Denies: Blood Transfusion Reaction Anesthesia experience/problems:: none Other Surgeries: Yes: Appendectomy. No: Pacemaker Amputation: No Fractures: Yes (RIGHT HAND) - *Social History Last grade of school completed: 7th or 8th Smoking Status: Light tobacco smoker Tobacco Type: cigarettes # Packs/Day (cigarettes): 1 Alcohol Intake: never Alcohol Intake Frequency:: other Substance Use Type: marijuana *Occupational Status:: employed Housing: house Household Members: children *Travel in the last 8 weeks: None - Psychiatric History Pschychiatric History:: Reports:: Anxiety, Depression Family Hx:: Diabetes, Heart Attack, Hyperlipidemia, Hypertension, Kidney Disease
[2021-10-20 08:25] VITALS: BP 123/90; PULSE 75; RESP 18; TEMP 36.7; O2SAT 93
--- NOTE | 2021-10-20 08:38 | HMH.OPNOTE ---
Date of procedure: 10/20/21 Pre-op Diagnosis:: Left carpal tunnel syndrome Post-op Diagnosis:: Same Procedure performed:: Left endoscopic carpal tunnel release Surgeon:: Zackary Garcia JR, MD [employer] Service Specialist(s):: Jeny Heath PA-C Anesthesia: MAC Estimated blood loss (mL): 3 Clinical Note:: 51-year-old male with bilateral carpal tunnel syndrome, cervical radiculopathy. He has been seen in [place] for his neck, which to have intervention on his carpal tunnel closer to home. His left side is more symptomatic. I recommended left endoscopic carpal tunnel release. He was amenable with the plan. We discussed the risk and benefits of surgery. Risks included but were not limited to pain, bleeding, infection, damage to adjacent structures, need for further surgery, wound healing complications, loss of limb, . Patient expressed verbal consent and written consent was obtained for the above procedure. Operative findings:: Transection of the transverse carpal ligament confirmed via direct visualization and palpation Operative note:: Patient was identified in preoperative holding. Operative site was marked in indelible ink. History, physical, consent were reviewed and updated. Patient was surrendered to the anesthesia team, taken to the operative suite, placed supine on a well-padded operative table. A nonsterile tourniquet placed on the proximal brachium. Anesthesia was induced. The operative extremity was prepped and draped in the usual sterile fashion. The operative team donned sterile gowns and gloves and a timeout was called. All in attendance agreed regarding the patient's identity, procedure, operative site. Weight-based dose of antibiotics was given prior to incision. I made a transverse incision at the proximal wrist crease proximal to the transverse carpal ligament. I bluntly dissected through skin and subcutaneous tissue with care taken to avoid injuring the palmaris longus. I transected the fascia, inserted a dilating probe deep to the transverse carpal ligament and noted its depth distal to the transverse carpal ligament. I then inserted a cannula and scope, visualize the fibers of the transverse carpal ligament. I took to the distal aspect of the transverse carpal ligament to confirm its location, then with a curved blade under endoscopic visualization, transected the fibers of the transverse carpal ligament and noted that they retracted medially and laterally. I removed the cannula, achieved hemostasis, closed with Monocryl, Prineo and Dermabond. Sterile dressings applied. Counts were correct x2. There were no apparent complications. I was present and scrubbed for the entire case. Condition: stable Disposition: PACU Complications:: None apparent
[2021-10-20 08:40] VITALS: BP 116/78; PULSE 60; RESP 18; O2SAT 95
[2021-10-20 08:55] VITALS: BP 122/63; PULSE 61; RESP 18; O2SAT 95
== END 2021-10-20 08:55 | disposition home or self-care (01) ==
LOC: OR 06:12
PROVIDERS: PCP Emergency Medicine; Visit Provider Orthopaedic Surgery
PROC: (CPT 64721; principal; 2021-10-20 07:30)
DX: G56.02 Carpal tunnel syndrome, left upper limb (principal)
CPT/HCPCS: 64721; 96374

== ENCOUNTER → 2021-11-01 16:53 | Outpatient (CLI) | payer MEDICARE, BC, SELFPAY ==
[2021-11-01 17:21] LABS: Basophils # 0.2 K/mm3 (0-0.2); Basophils % 2.4 % (0.1-2.0); Eosinophils # 0.3 K/mm3 (0.0-0.4); Eosinophils % 3.4 % (0.1-12.0); Hemoglobin 15.4 g/dL (14.1-18.0); Lymphocytes # 2.6 K/mm3 (0.7-4.5); Lymphocytes % 26.2 % (10-50); Mean Corpuscular HGB Conc 33.6 g/dL (31.8-35.4); Mean Corpuscular Hemoglobin 30.5 pg (27.0-31.2); Mean Corpuscular Volume 90.9 fl (80-94); Mean Platelet Volume 7.1 fl (7.4-10.4); Monocytes # 0.7 K/mm3 (0.1-1.0); Monocytes % 6.9 % (1.7-9.3); Neutrophils # 6.1 K/mm3 (1.8-7.8); Neutrophils % 61.1 % (37.0-80.0); Platelet Count 512 K/mm3 (142-424); Red Blood Count 5.06 M/mm3 (4.60-6.20); Red Cell Distribution Width 13.9 % (11.5-17.5); White Blood Count 9.9 K/mm3 (4.8-10.8)
[2021-11-01 18:59] LABS: Chloride 105 mmol/L (98-107); Potassium 3.9 mmoL/L (3.5-5.1); Sodium 138 mmol/L (136-145)
[2021-11-01 19:01] LABS: Blood Urea Nitrogen 14 mg/dl (9-20); Estimated Glomerular Filt Rate 102 ml/min (>60); GFR (African American) 123 ML/MIN (>60)
[2021-11-01 19:02] LABS: Alanine Aminotransferase 28 U/L (12-78); Albumin Level 4.5 g/dl (3.5-5.0); Albumin/Globulin Ratio 1.7 (1.1-1.8); Alkaline Phosphatase 117 U/L (38-126); Anion Gap 13.9 mEq/L (5-15); Aspartate Amino Transferase 31 U/L (17-59); Bilirubin,Total 0.5 mg/dl (0.2-1.3); Calcium 8.7 mg/dl (8.4-10.2); Carbon Dioxide 23 mmol/L (22.0-30.0); Globulin 2.7 g/dL (1.3-3.2); Glucose 105 mg/dl (74-100); Total Protein,Serum 7.2 g/dl (6.3-8.2)
== END ==
PROVIDERS: Visit Provider Orthopaedic Surgery
DX: Z01.812 Encounter for preprocedural laboratory examination; Z20.822 Contact with and (suspected) exposure to COVID-19; Z13.810 Encounter for screening for upper gastrointestinal disorder
CPT/HCPCS: 80053; 85025; C9803; U0003; U0005

== ENCOUNTER 2021-11-03 08:10 | Day surgery (SDC) | payer MEDICARE, BC, SELFPAY ==
[2021-11-01 11:46] VITALS: BMI 32.6
[2021-11-03 08:30] VITALS: BP 130/70; PULSE 71; RESP 18; TEMP 36.8; O2SAT 95
--- NOTE | 2021-11-03 09:01 | HMH.ANESCL ---
[facility] Anesthesia Checklist - Patient Identification Patient Identification: Arm Band - Structural Data Admitted From: Home Planned Operative Procedure/s: R. CTR Consent for Planned Operative Procedure(s) Verified: Yes - NPO Status Verified Time NPO: 00:00 - Additional verifications Anesthesia Reactions: No Hx Blood Transfusions: No Blood Transfusion Reaction: No - Airway Assessment C-Spine Mobility Assessed: Yes TMJ Mobility Assessed: Yes Dentition: Edentulous (Few on the bottom) - Neurological Assessment Level of Consciousness: Awake Hx Seizures: No Numbness or tingling in extremities: No - Anesthesia Plan Anesthesia Risk discussed: Yes Anesthesia Plan: Verified ASA Class: II Anesthesia Type: MAC [facility] History I have reviewed the patient's past medical history: Yes Medical History: Reports:: Anxiety, Depression, Hyperlipidemia, Hypertension Denies:: Cancer, Diabetes Mellitus Type 1, Diabetes Mellitus Type 2, Internal Pacemaker, MRSA, Renal Disease, Renal Insufficiency, Seizures *Have you ever received a pneumonia vaccine?: Yes *Have you received a flu vaccine this season?: Yes Other Medical History: Reports: Arthritis, Sinus Problems. Denies: Blood Transfusion Reaction Anesthesia experience/problems:: None Laterality Cases: Left: Carpal Tunnel Release Other Surgeries: Yes: Appendectomy. No: Pacemaker Amputation: No Fractures: Yes (RIGHT HAND) - *Social History Last grade of school completed: 7th or 8th Smoking Status: Current every day smoker Tobacco Type: cigarettes # Packs/Day (cigarettes): 1 Alcohol Intake: never Alcohol Intake Frequency:: other Substance Use Type: marijuana *Occupational Status:: disabled Housing: house Household Members: family, children *Travel in the last 8 weeks: None - Psychiatric History Pschychiatric History:: Reports:: Anxiety, Depression Family Hx:: No significant family history
[2021-11-03 10:50] VITALS: BP 116/66; PULSE 79; RESP 16; TEMP 36.8; O2SAT 94
--- NOTE | 2021-11-03 10:50 | HMH.OPNOTE ---
Date of procedure: 11/03/21 Pre-op Diagnosis:: Carpal tunnel syndrome Post-op Diagnosis:: Same Procedure performed:: 70677: Right endoscopic carpal tunnel release Surgeon:: Zackary Garcia JR, MD Anesthesia: ERICAATAWNYA Estimated blood loss (mL): 3 Operative findings:: Transverse carpal ligament release confirmed endoscopically. Operative note:: 51-year-old male with bilateral carpal tunnel syndrome. He is status post left endoscopic carpal tunnel release. He is very happy with his outcome on the left side, was interested in contralateral intervention. I recommended right endoscopic carpal tunnel release. We discussed the risk and benefits of surgery. Risks included but were not limited to pain, bleeding, infection, damage to adjacent structures, need for further surgery, wound healing complications, loss of limb, . Patient expressed verbal consent and written consent was obtained for the above procedure. I made a transverse incision at the proximal wrist crease proximal to the transverse carpal ligament. I bluntly dissected through skin and subcutaneous tissue with care taken to avoid injuring the palmaris longus. I transected the fascia, inserted a dilating probe deep to the transverse carpal ligament and noted its depth distal to the transverse carpal ligament. I then inserted a cannula and scope, visualize the fibers of the transverse carpal ligament. I took to the distal aspect of the transverse carpal ligament to confirm its location, then with a curved blade under endoscopic visualization, transected the fibers of the transverse carpal ligament and noted that they retracted medially and laterally. I removed the cannula, achieved hemostasis, closed with Monocryl, Prineo and Dermabond. Condition: stable Disposition: PACU Complications:: None apparent
[2021-11-03 11:05] VITALS: BP 132/74; PULSE 69; RESP 16; O2SAT 94
[2021-11-03 11:20] VITALS: BP 139/82; PULSE 81; RESP 16; O2SAT 95
== END 2021-11-03 11:20 | disposition home or self-care (01) ==
LOC: OR 08:11
PROVIDERS: PCP Emergency Medicine; Visit Provider Orthopaedic Surgery
PROC: (CPT 64721; principal; 2021-11-03 09:30)
DX: G56.01 Carpal tunnel syndrome, right upper limb (principal)
CPT/HCPCS: 64721; 96374

== ENCOUNTER → 2021-12-19 22:02 | Outpatient (CLI) | payer MEDICARE, BC, SELFPAY ==
[2021-12-19 14:11] LABS: Amphetamine/Metha Screen,Urine Positive ng/ml (<1000)
[2021-12-19 14:12] LABS: Barbiturates Screen,Urine Negative ng/ml (<200); Benzodiazepines Screen,Urine Positive ng/ml (<200)
[2021-12-19 14:13] LABS: Cannabinoid Screen,Urine Positive ng/ml (<50)
[2021-12-19 14:14] LABS: Cocaine Screen,Urine Negative ng/ml (<300); Methadone Screen,Urine Negative ng/ml (<300)
[2021-12-19 14:15] LABS: Opiate Screen,Urine Negative ng/ml (<300)
[2021-12-19 14:16] LABS: Phencyclidine Screen,Urine Negative ng/ml (<25)
== END ==
PROVIDERS: Visit Provider Emergency Medicine
DX: Z79.899 Other long term (current) drug therapy (principal)
CPT/HCPCS: 80305

== ENCOUNTER → 2022-02-14 15:48 | Outpatient (CLI) | payer MEDICARE, BC, SELFPAY ==
[2022-02-14 14:08] LABS: Amphetamine/Metha Screen,Urine Negative ng/ml (<1000)
[2022-02-14 14:09] LABS: Barbiturates Screen,Urine Negative ng/ml (<200); Benzodiazepines Screen,Urine Positive ng/ml (<200)
[2022-02-14 14:10] LABS: Cannabinoid Screen,Urine Positive ng/ml (<50)
[2022-02-14 14:11] LABS: Cocaine Screen,Urine Negative ng/ml (<300); Methadone Screen,Urine Negative ng/ml (<300)
[2022-02-14 14:12] LABS: Opiate Screen,Urine Negative ng/ml (<300)
[2022-02-14 14:13] LABS: Phencyclidine Screen,Urine Negative ng/ml (<25)
== END ==
PROVIDERS: Visit Provider Emergency Medicine
DX: Z79.899 Other long term (current) drug therapy (principal)
CPT/HCPCS: 80305

== ENCOUNTER → 2022-03-19 14:25 | Outpatient (CLI) | payer MEDICARE, BC, SELFPAY ==
--- NOTE | 2022-03-19 14:32 | XR_ITS ---
FINAL REPORT CLINICAL HISTORY: pain bilateral feet and ankles -- right foot wrapped in dressing from office FINDINGS: RIGHT ANKLE Three views of the right ankle were obtained. There is no acute fracture or dislocation. There is moderate degenerative change. There are calcaneal spurs. There is medial tilt of the talar dome. There is no soft tissue abnormality. IMPRESSION: Moderate degenerative change with no acute bony abnormality. Reviewed, Interpreted and Dictated by Sj Vallejo III, MD Transcribed by Blaire Pugh Authenticated and [facility]
--- NOTE | 2022-03-19 14:32 | XR_ITS ---
FINAL REPORT CLINICAL HISTORY: -pain bilateral feet and ankles -- right foot wrapped in dressing from office FINDINGS: LEFT ANKLE Three views of the left ankle were obtained. There is no acute fracture or dislocation. There is mild and moderate degenerative change. There are calcaneal spurs. There are posterior soft tissue calcifications. IMPRESSION: Mild and moderate degenerative change with no acute bony abnormality. Reviewed, Interpreted and Dictated by Sj Vallejo III, MD Transcribed by Blaire Pugh Authenticated and . [facility]
--- NOTE | 2022-03-19 14:32 | XR_ITS ---
FINAL REPORT CLINICAL HISTORY: pain bilateral feet and ankles -- right foot wrapped in dressing from office FINDINGS: LEFT FOOT Three views of the left foot demonstrate no acute fracture or dislocation. There is mild and moderate degenerative change which is greatest in the midfoot. There are calcaneal spurs. There is mild hallux valgus deformity. The soft tissues are unremarkable. IMPRESSION: Mild and moderate degenerative change with no acute bony abnormality. Reviewed, Interpreted and Dictated by Sj Vallejo III, MD Transcribed by Blaire Pugh Authenticated and [facility]
--- NOTE | 2022-03-19 14:32 | XR_ITS ---
FINAL REPORT CLINICAL HISTORY: pain bilateral feet and ankles -- right foot wrapped in dressing from office FINDINGS: RIGHT FOOT Three views of the right foot demonstrate no acute fracture or dislocation. There is mild hallux valgus deformity. There is mild degenerative change. There are calcaneal spurs. The soft tissues are unremarkable. IMPRESSION: Mild degenerative change with no acute bony abnormality. Reviewed, Interpreted and Dictated by Sj Vallejo III, MD Transcribed by Blaire Pugh Authenticated and [facility]
== END ==
LOC: RAD 14:29
PROVIDERS: PCP Emergency Medicine; Visit Provider Podiatrist
DX: M79.672 Pain in left foot (principal); M79.671 Pain in right foot; M25.572 Pain in left ankle and joints of left foot; M25.571 Pain in right ankle and joints of right foot
CPT/HCPCS: 73610; 73630

== ENCOUNTER → 2022-04-18 06:22 | Outpatient (CLI) | payer MEDICARE, BC, SELFPAY ==
[2022-04-18 13:34] LABS: Benzodiazepines Screen,Urine Positive ng/ml (<200)
[2022-04-18 13:35] LABS: Amphetamine/Metha Screen,Urine Negative ng/ml (<1000); Barbiturates Screen,Urine Negative ng/ml (<200)
[2022-04-18 13:36] LABS: Cannabinoid Screen,Urine Positive ng/ml (<50); Cocaine Screen,Urine Negative ng/ml (<300)
[2022-04-18 13:37] LABS: Methadone Screen,Urine Negative ng/ml (<300)
[2022-04-18 13:38] LABS: Opiate Screen,Urine Negative ng/ml (<300); Phencyclidine Screen,Urine Negative ng/ml (<25)
== END ==
PROVIDERS: PCP Emergency Medicine; Visit Provider Emergency Medicine
DX: M79.2 Neuralgia and neuritis, unspecified (principal)
CPT/HCPCS: 80305

== ENCOUNTER → 2022-06-13 14:33 | Outpatient (CLI) | payer MEDICARE, BC, SELFPAY ==
[2022-06-13 19:22] LABS: Amphetamine/Metha Screen,Urine Negative ng/ml (<1000)
[2022-06-13 19:23] LABS: Barbiturates Screen,Urine Negative ng/ml (<200); Benzodiazepines Screen,Urine Positive ng/ml (<200)
[2022-06-13 19:24] LABS: Cannabinoid Screen,Urine Positive ng/ml (<50)
[2022-06-13 19:25] LABS: Cocaine Screen,Urine Negative ng/ml (<300); Methadone Screen,Urine Negative ng/ml (<300)
[2022-06-13 19:26] LABS: Opiate Screen,Urine Negative ng/ml (<300)
[2022-06-13 19:27] LABS: Phencyclidine Screen,Urine Negative ng/ml (<25)
== END ==
PROVIDERS: PCP Emergency Medicine; Visit Provider Emergency Medicine
DX: M79.2 Neuralgia and neuritis, unspecified (principal); Z79.899 Other long term (current) drug therapy
CPT/HCPCS: 80305

== ENCOUNTER 2022-06-14 16:46 | Emergency (ER) | payer MEDICARE, BC, SELFPAY ==
[2022-06-14 16:47] VITALS: BP 124/79; PULSE 85; RESP 16; TEMP 36.7; O2SAT 97; BMI 29.7
[2022-06-14 17:31] VITALS: BP 120/68; PULSE 72; O2SAT 97
[2022-06-14 17:37] VITALS: BMI 29.7
--- NOTE | 2022-06-14 17:42 | XR_ITS ---
PROCEDURE INFORMATION: Exam: XR Right Foot Exam date and time: 06/14/2022 5:40 PM Age: 51 years old Clinical indication: Injury or trauma; Other: Stepped on nail; Puncture; Foot; Right; Foreign body involvement not specified; Patient HX: Patient stepped on a nail. ; Additional info: Injury to bottom of foot, possible f/b TECHNIQUE: Imaging protocol: Radiologic exam of the Right foot. Views: 1 or 2 views. COMPARISON: CR XR FOOT WT BEARING RT 3V 03/19/2022 2:33 PM FINDINGS: Bones/joints: Severe osteoarthritic changes in the tibiotalar joint. Soft tissues: Normal. No radiopaque foreign body. IMPRESSION: No acute findings.
--- NOTE | 2022-06-14 18:56 | HMH.EDGENADL ---
Discharge Plan Disposition Patient Disposition: Home, Self-Care Condition: Fair Prescriptions Prescriptions: New ciprofloxacin HCl [Cipro] 500 mg tablet 500 mg PO BID Qty: 20 0RF clindamycin HCl 300 mg capsule 300 mg PO QID Qty: 40 0RF No Action fluticasone propionate 50 mcg/actuation spray,suspension 1 spray INTRANASAL QDAY Qty: 16 2RF Rx Instructions: administer into each nostril methylprednisolone [Medrol (Moise)] 4 mg tablets,dose pack See Rx Instructions PO PER PKG DIR Qty: 21 0RF Rx Instructions: PO PER PKG DIR cephalexin 500 mg capsule 500 mg PO TID Qty: 21 0RF diazepam 5 mg tablet 5 mg PO QHS PRN (Reason: anxiety) Qty: 30 1RF gabapentin 600 mg tablet 600 mg PO QID Qty: 120 1RF oxycodone 10 mg tablet 10 mg PO QID PRN (Reason: pain) Qty: 120 0RF trazodone 50 mg tablet See Rx Instructions .ROUTE .COMPLEX Qty: 90 5RF Dose Instruction: TAKE ONE TABLET BY MOUTH EVERY DAY AT BEDTIME MAY CAUSE DROWSINESS Rx Instructions: TAKE ONE TABLET BY MOUTH EVERY DAY AT BEDTIME MAY CAUSE DROWSINESS gemfibrozil 600 mg tablet See Rx Instructions .ROUTE .COMPLEX Qty: 180 5RF Dose Instruction: TAKE ONE TABLET BY MOUTH TWICE DAILY Rx Instructions: TAKE ONE TABLET BY MOUTH TWICE DAILY niacin 500 mg tablet extended release 24 hr See Rx Instructions .ROUTE .COMPLEX Qty: 90 5RF Dose Instruction: TAKE ONE TABLET BY MOUTH EVERY DAY AT BEDTIME Rx Instructions: TAKE ONE TABLET BY MOUTH EVERY DAY AT BEDTIME allopurinol 300 mg tablet See Rx Instructions .ROUTE .COMPLEX Qty: 90 5RF Dose Instruction: TAKE ONE TABLET BY MOUTH EVERY DAY Rx Instructions: TAKE ONE TABLET BY MOUTH EVERY DAY bupropion HCl 150 mg tablet sustained-release 12 hr See Rx Instructions .ROUTE .COMPLEX Qty: 180 5RF Dose Instruction: TAKE ONE TABLET BY MOUTH TWICE DAILY Rx Instructions: TAKE ONE TABLET BY MOUTH TWICE DAILY escitalopram oxalate 20 mg tablet See Rx Instructions .ROUTE .COMPLEX Qty: 30 5RF Dose Instruction: TAKE 1 TABLET BY MOUTH EVERY DAY Rx Instructions: TAKE 1 TABLET BY MOUTH EVERY DAY lisinopril-hydrochlorothiazide 10-12.5 mg tablet See Rx Instructions .ROUTE .COMPLEX Qty: 30 5RF Dose Instruction: TAKE ONE TABLET BY MOUTH EVERY DAY IN THE MORNING Rx Instructions: TAKE ONE TABLET BY MOUTH EVERY DAY IN THE MORNING meloxicam 15 mg tablet See Rx Instructions .ROUTE .COMPLEX Qty: 30 5RF Dose Instruction: TAKE ONE TABLET BY MOUTH EVERY DAY --TAKE WITH FOOD-- Rx Instructions: TAKE ONE TABLET BY MOUTH EVERY DAY --TAKE WITH FOOD-- cholecalciferol (vitamin D3) 25 mcg (1,000 unit) capsule See Rx Instructions .ROUTE .COMPLEX Qty: 90 5RF Dose Instruction: TAKE ONE CAPSULE BY MOUTH EVERY DAY Rx Instructions: TAKE ONE CAPSULE BY MOUTH EVERY DAY lisinopril 10 mg tablet See Rx Instructions .ROUTE .COMPLEX Qty: 90 0RF Dose Instruction: TAKE ONE TABLET BY MOUTH EVERY DAY AT BEDTIME FOR FOR BLOOD PRESSURE Rx Instructions: TAKE ONE TABLET BY MOUTH EVERY DAY AT BEDTIME FOR FOR BLOOD PRESSURE loratadine 10 MG tablet 10 mg PO Q24H ergocalciferol (vitamin D2) 1,250 MCG capsule See Rx Instructions .Route .COMPLEX Rx Instructions: TAKE ONE CAPSULE BY MOUTH ONCE A WEEK Referrals Follow up/Referrals: Bhavin Ring MD [Primary Care Provider] - See instructions Activity Restrictions/Add. Instructions Additional Instructions/Restrictions: Stop taking Keflex. Start taking Cipro and clindamycin as prescribed, start tomorrow. Clean the wound daily with soap and water and reapply bandage. Rest and elevate foot. Return to the emergency department if increasing pain, swelling, red streaking or spreading redness, pus drainage. Follow-up with Dr. Milligan in the office, call tomorrow to make appointment to be tom
--- NOTE | 2022-06-14 18:58 | PC.NURSE ---
ANANDA RAZO at
--- NOTE | 2022-06-14 19:35 | PC.NURSE ---
shift change report given to dwayne buitrago and monern
[2022-06-14 19:42] LABS: Chloride 102 mmol/L (98-107)
[2022-06-14 19:43] LABS: Potassium 3.8 mmoL/L (3.5-5.1); Sodium 139 mmol/L (136-145)
[2022-06-14 19:46] LABS: Anion Gap 15.8 mEq/L (5-15); Blood Urea Nitrogen 16 mg/dl (9-20); Carbon Dioxide 25 mmol/L (22.0-30.0); Creatinine Clearance Estimated 173 mL/min (50-200); Estimated Glomerular Filt Rate 118 ml/min (>60); GFR (African American) 143 ML/MIN (>60); Glucose 88 mg/dl (74-100)
--- NOTE | 2022-06-14 19:56 | PC.NURSE ---
Pt antibiotic finished. MD notified.
[2022-06-14 19:58] LABS: Basophils # 0.2 K/mm3 (0-0.2); Basophils % 1.6 % (0.1-2.0); Eosinophils # 0.4 K/mm3 (0.0-0.4); Eosinophils % 3.1 % (0.1-12.0); Hematocrit 47.1 % (42.0-52.0); Hemoglobin 15.8 g/dL (14.1-18.0); Lymphocytes # 3.5 K/mm3 (0.7-4.5); Mean Corpuscular HGB Conc 33.5 g/dL (31.8-35.4); Mean Corpuscular Hemoglobin 31.6 pg (27.0-31.2); Mean Corpuscular Volume 94.4 fl (80-94); Mean Platelet Volume 7.7 fl (7.4-10.4); Monocytes # 0.9 K/mm3 (0.1-1.0); Monocytes % 7.9 % (1.7-9.3); Neutrophils # 6.7 K/mm3 (1.8-7.8); Neutrophils % 57.3 % (37.0-80.0); Platelet Count 532 K/mm3 (142-424); Red Blood Count 4.99 M/mm3 (4.60-6.20); Red Cell Distribution Width 13.6 % (11.5-17.5); White Blood Count 11.7 K/mm3 (4.8-10.8)
[2022-06-14 20:54] VITALS: BP 128/70; PULSE 71; RESP 16; TEMP 36.6; O2SAT 97
== END 2022-06-14 20:57 | disposition home or self-care (01) ==
PROVIDERS: Emergency Provider Emergency Medicine; PCP Emergency Medicine
DX: S91.331A Puncture wound without foreign body, right foot, initial encounter; W45.0XXA Nail entering through skin, initial encounter; Z23 Encounter for immunization; Z79.899 Other long term (current) drug therapy; Z72.0 Tobacco use; F12.90 Cannabis use, unspecified, uncomplicated; M19.071 Primary osteoarthritis, right ankle and foot; M19.072 Primary osteoarthritis, left ankle and foot; I10 Essential (primary) hypertension
CPT/HCPCS: 11042; 73620; 80048; 85025; 87070; 87077; 87186; 87205; 90471; 90715; 96365; 96367; 99284; J2543

== ENCOUNTER → 2022-07-03 10:00 | Outpatient (CLI) | payer MEDICARE, BC, SELFPAY | PROVIDERS: Visit Provider Podiatrist | DX: S91.331A Puncture wound without foreign body, right foot, initial encounter (principal) | CPT/HCPCS: 87070; 87205 ==

== ENCOUNTER → 2022-09-10 08:35 | Outpatient (CLI) | payer MEDICARE, BC, SELFPAY ==
[2022-09-10 15:15] LABS: Amphetamine/Metha Screen,Urine Negative ng/ml (<1000); Barbiturates Screen,Urine Negative ng/ml (<200)
[2022-09-10 15:16] LABS: Benzodiazepines Screen,Urine Positive ng/ml (<200)
[2022-09-10 15:17] LABS: Cannabinoid Screen,Urine Positive ng/ml (<50); Cocaine Screen,Urine Negative ng/ml (<300)
[2022-09-10 15:18] LABS: Methadone Screen,Urine Negative ng/ml (<300)
[2022-09-10 15:19] LABS: Opiate Screen,Urine Negative ng/ml (<300); Phencyclidine Screen,Urine Negative ng/ml (<25)
== END ==
PROVIDERS: PCP Emergency Medicine; Visit Provider Emergency Medicine
DX: M79.2 Neuralgia and neuritis, unspecified (principal); Z79.899 Other long term (current) drug therapy
CPT/HCPCS: 80305

== ENCOUNTER → 2022-12-18 10:27 | Outpatient (CLI) | payer MEDICARE, BC, SELFPAY ==
[2022-12-18 11:14] LABS: Basophils # 0.1 K/mm3 (0-0.2); Basophils % 0.9 % (0.1-2.0); Eosinophils # 0.4 K/mm3 (0.0-0.4); Eosinophils % 4.9 % (0.1-12.0); Hematocrit 47.8 % (42.0-52.0); Hemoglobin 16.1 g/dL (14.1-18.0); Lymphocytes # 2.8 K/mm3 (0.7-4.5); Lymphocytes % 33.6 % (10-50); Mean Corpuscular HGB Conc 33.5 g/dL (31.8-35.4); Mean Corpuscular Hemoglobin 31.1 pg (27.0-31.2); Mean Corpuscular Volume 92.6 fl (80-94); Mean Platelet Volume 7.5 fl (7.4-10.4); Monocytes # 0.7 K/mm3 (0.1-1.0); Monocytes % 8.1 % (1.7-9.3); Neutrophils # 4.4 K/mm3 (1.8-7.8); Neutrophils % 52.6 % (37.0-80.0); Platelet Count 576 K/mm3 (142-424); Red Blood Count 5.17 M/mm3 (4.60-6.20); Red Cell Distribution Width 13.8 % (11.5-17.5); White Blood Count 8.3 K/mm3 (4.8-10.8)
[2022-12-18 11:40] LABS: Chloride 99 mmol/L (98-107); Potassium 5.1 mmoL/L (3.5-5.1); Sodium 138 mmol/L (136-145)
[2022-12-18 11:43] LABS: Alanine Aminotransferase 27 U/L (12-78); Albumin Level 4.6 g/dl (3.5-5.0); Albumin/Globulin Ratio 1.5 (1.1-1.8); Alkaline Phosphatase 146 U/L (38-126); Anion Gap 20.1 mEq/L (5-15); Aspartate Amino Transferase 31 U/L (17-59); Bilirubin,Total 0.4 mg/dl (0.2-1.3); Blood Urea Nitrogen 18 mg/dl (9-20); Carbon Dioxide 24 mmol/L (22.0-30.0); Estimated Glomerular Filt Rate 101 ml/min (>60); GFR (African American) 122 ML/MIN (>60); Globulin 3.1 g/dL (1.3-3.2); Total Protein,Serum 7.7 g/dl (6.3-8.2); Uric Acid 3.4 mg/dl (3.5-8.5)
[2022-12-18 11:44] LABS: Calcium 9.7 mg/dl (8.4-10.2); Glucose 90 mg/dl (74-100)
[2022-12-18 11:49] LABS: C-Reactive Protein 8.8 mg/L (0-4)
[2022-12-18 16:26] LABS: Erythrocyte Sedimentation Rate 18 mm/hr (0-20)
[2022-12-19 13:51] LABS: RA Latex Turbid. <10.0 IU/mL (<14.0)
[2022-12-27 22:24] LABS: 1,25 Dihydroxy Vitamin D 45 pg/mL (.); 1,25-Dihydroxy, Vitamin D-2 13 pg/mL (.); 1,25-Dihydroxy, Vitamin D-3 32 pg/mL (.)
[2022-12-28 20:54] LABS: Antinuclear Antibodies, IFA Positive
[2023-01-05 18:26] LABS: Cotinine 100.8
== END ==
PROVIDERS: PCP Emergency Medicine; Visit Provider Podiatrist
DX: M79.604 Pain in right leg (principal); M25.371 Other instability, right ankle; M79.671 Pain in right foot; M79.2 Neuralgia and neuritis, unspecified; R20.2 Paresthesia of skin; R60.0 Localized edema; Z72.0 Tobacco use; Z79.899 Other long term (current) drug therapy
CPT/HCPCS: 36415; 80053; 80323; 82652; 84550; 85025; 85651; 86038; 86140; 86431

== ENCOUNTER 2022-12-28 10:34 | Emergency (ER) | payer MEDICARE, BC, SELFPAY ==
[2022-12-28 10:36] VITALS: BP 127/78; PULSE 77; RESP 18; TEMP 36.8; O2SAT 96; BMI 28.5
--- NOTE | 2022-12-28 10:59 | XR_ITS ---
FINAL REPORT CLINICAL HISTORY: medial joint line tenderness FINDINGS: Left knee Three views were obtained. There is no acute fracture or dislocation. There is mild joint space narrowing of the medial compartment. Small joint effusion is identified. No acute soft tissue abnormality is identified. IMPRESSION: Mild degenerative change and small joint effusion. Reviewed, Interpreted and Dictated by Simón Adan MD Transcribed by Inés Juares Authenticated and [facility]
[2022-12-28 11:00] VITALS: BP 117/75; PULSE 74; RESP 20; O2SAT 95
--- NOTE | 2022-12-28 11:05 | HMH.EDGENADL ---
Discharge Plan Disposition Patient Disposition: Home, Self-Care Condition: Good Prescriptions Prescriptions: No Action gabapentin 600 mg tablet 600 mg PO QID Qty: 120 1RF diazepam 5 mg tablet 5 mg PO QHS Qty: 30 1RF oxycodone 10 mg tablet 10 mg PO QID PRN (Reason: pain) Qty: 120 0RF trazodone 50 mg tablet See Rx Instructions .ROUTE .COMPLEX Qty: 90 5RF Dose Instruction: TAKE ONE TABLET BY MOUTH EVERY DAY AT BEDTIME MAY CAUSE DROWSINESS Rx Instructions: TAKE ONE TABLET BY MOUTH EVERY DAY AT BEDTIME MAY CAUSE DROWSINESS gemfibrozil 600 mg tablet See Rx Instructions .ROUTE .COMPLEX Qty: 180 5RF Dose Instruction: TAKE ONE TABLET BY MOUTH TWICE DAILY Rx Instructions: TAKE ONE TABLET BY MOUTH TWICE DAILY niacin 500 mg tablet extended release 24 hr See Rx Instructions .ROUTE .COMPLEX Qty: 90 5RF Dose Instruction: TAKE ONE TABLET BY MOUTH EVERY DAY AT BEDTIME Rx Instructions: TAKE ONE TABLET BY MOUTH EVERY DAY AT BEDTIME allopurinol 300 mg tablet See Rx Instructions .ROUTE .COMPLEX Qty: 90 5RF Dose Instruction: TAKE ONE TABLET BY MOUTH EVERY DAY Rx Instructions: TAKE ONE TABLET BY MOUTH EVERY DAY bupropion HCl 150 mg tablet sustained-release 12 hr See Rx Instructions .ROUTE .COMPLEX Qty: 180 5RF Dose Instruction: TAKE ONE TABLET BY MOUTH TWICE DAILY Rx Instructions: TAKE ONE TABLET BY MOUTH TWICE DAILY cholecalciferol (vitamin D3) 25 mcg (1,000 unit) capsule See Rx Instructions .ROUTE .COMPLEX Qty: 90 5RF Dose Instruction: TAKE ONE CAPSULE BY MOUTH EVERY DAY Rx Instructions: TAKE ONE CAPSULE BY MOUTH EVERY DAY fluticasone propionate 50 mcg/actuation spray,suspension 1 spray INTRANASAL QDAY Qty: 16 2RF Rx Instructions: administer into each nostril ergocalciferol (vitamin D2) 1,250 mcg (50,000 unit) capsule See Rx Instructions .Route .COMPLEX Qty: 14 3RF Rx Instructions: TAKE ONE CAPSULE BY MOUTH ONCE A WEEK escitalopram oxalate 20 mg tablet See Rx Instructions .ROUTE .COMPLEX Qty: 30 5RF Dose Instruction: TAKE 1 TABLET BY MOUTH EVERY DAY Rx Instructions: TAKE 1 TABLET BY MOUTH EVERY DAY meloxicam 15 mg tablet See Rx Instructions .ROUTE .COMPLEX Qty: 30 5RF Dose Instruction: TAKE ONE TABLET BY MOUTH EVERY DAY --TAKE WITH FOOD-- Rx Instructions: TAKE ONE TABLET BY MOUTH EVERY DAY --TAKE WITH FOOD-- lisinopril-hydrochlorothiazide 10-12.5 mg tablet See Rx Instructions .ROUTE .COMPLEX Qty: 30 5RF Dose Instruction: TAKE ONE TABLET BY MOUTH EVERY DAY IN THE MORNING Rx Instructions: TAKE ONE TABLET BY MOUTH EVERY DAY IN THE MORNING lisinopril 10 mg tablet See Rx Instructions .ROUTE .COMPLEX Qty: 90 0RF Dose Instruction: TAKE ONE TABLET BY MOUTH EVERY DAY AT BEDTIME FOR FOR BLOOD PRESSURE Rx Instructions: TAKE ONE TABLET BY MOUTH EVERY DAY AT BEDTIME FOR FOR BLOOD PRESSURE loratadine 10 MG tablet 10 mg PO Q24H Referrals Follow up/Referrals: Paulino Vale DO [Staff Physician] - See instructions Bhavin Ring MD [Primary Care Provider] - See instructions Clinical Impressions Clinical Impression: Knee MCL sprain Instructions Patient Instructions: DI for Knee Sprain Discharge ED Provider: Louis Miller General Adult HPI General Chief complaint: Extremity Injury, Lower Stated complaint: [id number] left knee pain, home accident Time Seen by Provider: 12/28/22 10:50 Mode of Arrival: Ambulatory Source of Information: Patient Limitations: No Limitations Description of Symptoms (Recalled from ER Triage Doc. by RN): pt to ED with left knee pain x 2 weeks after hyperextending it. pt reports it began to resolve until yesterday when he stepped into a hole in his yard and hyperextended it again. pt reports pain and swelling to knee when ambulating. pt is currently taking a da
--- NOTE | 2022-12-28 11:35 | PC.NURSE ---
rounded on pt he was using restroom at said they didn't need anything at this time
--- NOTE | 2022-12-28 12:36 | PC.NURSE ---
pt waiting for scan to come back then hes ready to leave, at bs
--- NOTE | 2022-12-28 12:37 | PC.NURSE ---
let pt no his discharge was just put in, nurse would be in to go over discharge instructions and get him out of the ed soon,pt was very happy to hear this
[2022-12-28 12:46] VITALS: BP 127/80; PULSE 65; RESP 18; TEMP 36.8; O2SAT 96
== END 2022-12-28 12:51 | disposition home or self-care (01) ==
PROVIDERS: Emergency Provider Student in an Organized Health Care Education/Training Program; PCP Emergency Medicine
DX: S83.412A Sprain of medial collateral ligament of left knee, initial encounter (principal); X50.1XXA Overexertion from prolonged static or awkward postures, initial encounter; F17.210 Nicotine dependence, cigarettes, uncomplicated
CPT/HCPCS: 73562; 99283

== ENCOUNTER → 2023-01-01 13:27 | Outpatient (CLI) | payer MEDICARE, BC, SELFPAY ==
[2023-01-01 14:55] LABS: Amphetamine/Metha Screen,Urine Negative ng/ml (<1000)
[2023-01-01 14:56] LABS: Barbiturates Screen,Urine Negative ng/ml (<200)
[2023-01-01 15:00] LABS: Cannabinoid Screen,Urine Positive ng/ml (<50)
[2023-01-01 15:01] LABS: Cocaine Screen,Urine Negative ng/ml (<300); Opiate Screen,Urine Negative ng/ml (<300)
[2023-01-01 15:02] LABS: Phencyclidine Screen,Urine Negative ng/ml (<25)
[2023-01-01 15:33] LABS: Methadone Screen,Urine Negative ng/ml (<300)
[2023-01-01 16:23] LABS: Benzodiazepines Screen,Urine Positive ng/ml (<200)
== END ==
PROVIDERS: PCP Emergency Medicine; Visit Provider Emergency Medicine
DX: M79.2 Neuralgia and neuritis, unspecified (principal)
CPT/HCPCS: 80305

== ENCOUNTER 2023-01-11 15:00 | Outpatient (RCR) | payer MEDICARE, BC, SELFPAY | END 2023-01-11 16:10 | disposition home or self-care (01) | LOC: PT 15:00 | PROVIDERS: Visit Provider Orthopaedic Surgery | DX: M25.562 Pain in left knee (principal); S83.412A Sprain of medial collateral ligament of left knee, initial encounter; M23.92 Unspecified internal derangement of left knee | CPT/HCPCS: 97760 ==

== ENCOUNTER → 2023-02-25 14:50 | Outpatient (CLI) | payer MEDICARE, BC, SELFPAY ==
[2023-02-26 01:34] LABS: Amphetamine/Metha Screen,Urine Negative ng/ml (<1000)
[2023-02-26 01:35] LABS: Barbiturates Screen,Urine Negative ng/ml (<200)
[2023-02-26 01:36] LABS: Benzodiazepines Screen,Urine Positive ng/ml (<200)
[2023-02-26 02:24] LABS: Cannabinoid Screen,Urine Positive ng/ml (<50); Methadone Screen,Urine Negative ng/ml (<300)
[2023-02-26 02:25] LABS: Cocaine Screen,Urine Negative ng/ml (<300)
[2023-02-26 02:26] LABS: Phencyclidine Screen,Urine Negative ng/ml (<25)
[2023-02-26 02:34] LABS: Opiate Screen,Urine Negative ng/ml (<300)
== END ==
PROVIDERS: PCP Emergency Medicine; Visit Provider Emergency Medicine
DX: M79.2 Neuralgia and neuritis, unspecified (principal); Z79.899 Other long term (current) drug therapy
CPT/HCPCS: 80305

== ENCOUNTER → 2023-04-26 17:01 | Outpatient (CLI) | payer MEDICARE, BC, SELFPAY ==
[2023-04-26 14:00] LABS: Alanine Aminotransferase 35 U/L (12-78); Albumin Level 4.8 g/dl (3.5-5.0); Alkaline Phosphatase 151 U/L (38-126); Aspartate Amino Transferase 45 U/L (17-59); Bilirubin,Direct 0.3 mg/dl (0.0-0.4); Bilirubin,Indirect 0.1 mg/dL (0.0-0.9); Bilirubin,Total 0.4 mg/dl (0.2-1.3); Bilirubin,Unconjugated 0.1 mg/dL (0.0-1.1); Chol/HDL Ratio 6.7 (1-3.5); Cholesterol 209 mg/dl (140-200); HDL Cholesterol 31 mg/dl (40-60); Total Protein,Serum 8.1 g/dl (6.3-8.2); Triglycerides 259 mg/dl (30-150); VLDL Cholesterol 52 mg/dL (0-40)
[2023-04-26 14:09] LABS: Coronavirus 19, PCR Not Detected (NotDetected); Influenza A, PCR Not Detected (NotDetected)
[2023-04-26 14:11] LABS: Direct LDL Cholesterol 110.56 mg/dL (100-129)
[2023-04-26 14:30] LABS: Prostate Specific Ag Screen 0.5 ng/ml (0.0-4.0)
[2023-04-26 14:31] LABS: Hemoglobin A1C 5.7 % (4.0-6.0)
[2023-04-26 14:47] LABS: Influenza B, PCR Not Detected (NotDetected)
[2023-04-26 14:52] LABS: Barbiturates Screen,Urine Negative ng/ml (<200)
[2023-04-26 14:53] LABS: Amphetamine/Metha Screen,Urine Negative ng/ml (<1000)
[2023-04-26 14:55] LABS: Benzodiazepines Screen,Urine Positive ng/ml (<200); Cocaine Screen,Urine Negative ng/ml (<300)
[2023-04-26 14:56] LABS: Cannabinoid Screen,Urine Positive ng/ml (<50)
[2023-04-26 14:57] LABS: Methadone Screen,Urine Negative ng/ml (<300); Phencyclidine Screen,Urine Negative ng/ml (<25)
[2023-04-26 14:58] LABS: Opiate Screen,Urine Negative ng/ml (<300)
== END ==
PROVIDERS: Family Medicine; PCP Emergency Medicine; Visit Provider Emergency Medicine
DX: I10 Essential (primary) hypertension (principal); Z12.5 Encounter for screening for malignant neoplasm of prostate; Z79.899 Other long term (current) drug therapy; M79.2 Neuralgia and neuritis, unspecified; R05.3 Chronic cough; R09.89 Other specified symptoms and signs involving the circulatory and respiratory systems; R09.81 Nasal congestion
CPT/HCPCS: 80061; 80076; 80305; 83036; 87636; G0103

== ENCOUNTER → 2023-04-30 07:28 | Outpatient (CLI) | payer MEDICARE, BC, SELFPAY ==
--- NOTE | 2023-04-30 07:31 | MR_ITS ---
FINAL REPORT CLINICAL HISTORY: Right ankle pain. LATERAL SIDED ANKLE PAIN WITH SWELLING. SYMPTOMS X7EARS FINDINGS: Multiplanar MR imaging of the right ankle was performed without contrast. There are severe degenerative changes. There is a partial tear of the anterior talofibular ligament. There is a tear or partial tear of the calcaneofibular ligament. There are multiple subchondral cysts in the distal tibia and in the talus. There are chronic calcifications adjacent to the lateral malleolus. There is a lobular heterogeneous cystic mass lateral to the tibiofibular joint measuring 3.5 x 1.8 cm in maximum axial dimensions that may represent a complex ganglion cyst or other cystic mass. There are small tibiotalar and posterior subtalar joint effusions. There is posterior plantar fasciitis with a small partial tear. There is soft tissue in the tibiotalar joint space that may represent synovitis. IMPRESSION: Findings that may reflect severe osteoarthritis versus inflammatory arthritis secondary to degenerative change. Partial tear of the anterior talofibular ligament with a tear or partial tear of the calcaneofibular ligament. Lobular heterogeneous mass may represent a complex ganglion cyst or other cystic mass. Reviewed, Interpreted and Dictated by Sj Vallejo III, MD Transcribed by Alex Lawler Authenticated and [facility]
--- NOTE | 2023-04-30 07:31 | CT_ITS ---
FINAL REPORT CLINICAL HISTORY: Right ankle pain FINDINGS: CT RIGHT ANKLE WITHOUT CONTRAST Technique: Axial images through the right ankle were performed by computed tomography. Sagittal and coronal reconstruction images were performed. This study was performed with techniques to keep radiation doses as low as reasonably achievable (ALARA). Individualized dose reduction techniques using automated exposure control or adjustment of mA and/or kV according to the patient's size were employed. 3D reconstruction images were submitted and reviewed. No fracture is identified. No dislocation identified. There is severe degenerative change. There are multiple subchondral cysts in the distal tibia and in the talus. There are multiple loose bodies adjacent to the tibiotalar joint and the lateral malleolus. There is tilt of the talus with widening of the tibiotalar joint medially. Calcaneal spurs are present. There is a moderate tibiotalar joint effusion. There is a 3.4 x 1.7 cm in maximal axial dimension heterogeneous cystic mass lateral to the tibiofibular joint that could represent a complex ganglion cyst or other cystic mass IMPRESSION: Severe degenerative change with multiple subchondral cysts and mild loose bodies. Talar tilt with widening of the tibiotalar joint medially. 3.4 cm cystic mass lateral to the tibiofibular joint could represent a complex ganglion cyst or other cystic mass. Tibiotalar joint effusion. Reviewed, Interpreted and Dictated by Sj Vallejo III, MD Transcribed by Alex Lawler Authenticated and [facility]
--- NOTE | 2023-04-30 09:07 | MR_ITS ---
FINAL REPORT CLINICAL HISTORY: left knee pain FINDINGS: Multiplanar MR imaging of the right knee was performed without contrast. There is medial meniscal degeneration with a partial tear of the posterior root. There is medial subluxation of the body of the medial meniscus. The lateral meniscus is intact. The anterior and posterior cruciate ligaments are intact. The medial collateral ligament and lateral ligamentous complex are intact. The patellar and quadriceps tendons are intact. There is moderate to severe medial compartment chondromalacia with osteochondral lesions of the medial femoral condyle and medial tibial plateau. There is mild bone marrow edema in the medial femoral condyle and medial tibial plateau. There is moderate to severe patellar chondromalacia. Small joint effusion is seen. The musculature is intact. No soft tissue mass or cyst is identified. IMPRESSION: Partial tear posterior root medial meniscus. Degenerative change and chondromalacia. Osteochondral lesions of the medial femoral condyle and medial tibial plateau with associated bone marrow edema. Reviewed, Interpreted and Dictated by Sj Vallejo III, MD Transcribed by Inés Juares Authenticated and [facility]
== END ==
PROVIDERS: PCP Emergency Medicine; Visit Provider Podiatrist
DX: M19.071 Primary osteoarthritis, right ankle and foot; M25.871 Other specified joint disorders, right ankle and foot; M25.462 Effusion, left knee; M25.562 Pain in left knee
CPT/HCPCS: 73700; 73721

== ENCOUNTER → 2023-05-27 10:27 | Outpatient (CLI) | payer MEDICARE, BC, SELFPAY ==
--- NOTE | 2023-05-27 10:36 | CT_ITS ---
FINAL REPORT TECHNIQUE: Thin section axial CT images with coronal and sagittal reformats were performed of the right tibia and fibula. This study was performed with techniques to keep radiation doses as low as reasonably achievable (ALARA). Individualized dose reduction techniques using automated exposure control or adjustment of mA and/or kV according to the patient''s size were employed. CLINICAL HISTORY: Ankle pain, surgical planning (TAR PROTOCOL) including right knee to right foot. COMPARISON: 04/30/2023 FINDINGS: Again seen are severe degenerative changes. Several loose bodies are present with the largest anteriorly measuring 14 mm in transverse dimension. There are multiple subchondral cysts. A 34 mm, heterogeneous mass seen at the anterolateral ankle, which is likely partially cystic, is unchanged from prior exam. There are no fractures. There are no soft tissue abnormalities. IMPRESSION: Severe degenerative changes with loose bodies measuring up to 14 mm. Heterogeneous mass at the anterolateral ankle measuring up to 34 mm, unchanged. Reviewed, Interpreted and Dictated by Sj Vallejo III, MD Transcribed by Fatou Sesay Authenticated and [facility]
== END ==
PROVIDERS: PCP Emergency Medicine; Visit Provider Podiatrist
DX: M25.871 Other specified joint disorders, right ankle and foot (principal); M79.671 Pain in right foot
CPT/HCPCS: 73700

== ENCOUNTER → 2023-06-21 10:21 | Outpatient (CLI) | payer BC, SELFPAY | PROVIDERS: PCP Emergency Medicine; Visit Provider Podiatrist | DX: M25.871 Other specified joint disorders, right ankle and foot (principal); M79.671 Pain in right foot ==

== ENCOUNTER 2023-06-21 13:00 | Outpatient (RCR) | payer MEDICARE, SELFPAY | END 2023-06-21 14:00 | disposition home or self-care (01) | LOC: PT 13:00 | PROVIDERS: Visit Provider Orthopaedic Surgery | DX: M17.12 Unilateral primary osteoarthritis, left knee (principal) ==

== ENCOUNTER → 2023-06-24 16:51 | Outpatient (CLI) | payer MEDICARE, SELFPAY ==
[2023-06-24 14:01] LABS: Benzodiazepines Screen,Urine Positive ng/ml (<200)
[2023-06-24 14:02] LABS: Amphetamine/Metha Screen,Urine Negative ng/ml (<1000); Barbiturates Screen,Urine Negative ng/ml (<200)
[2023-06-24 14:03] LABS: Cannabinoid Screen,Urine Positive ng/ml (<50); Cocaine Screen,Urine Negative ng/ml (<300)
[2023-06-24 14:04] LABS: Methadone Screen,Urine Negative ng/ml (<300)
[2023-06-24 14:05] LABS: Opiate Screen,Urine Negative ng/ml (<300); Phencyclidine Screen,Urine Negative ng/ml (<25)
== END ==
PROVIDERS: PCP Emergency Medicine; Visit Provider Podiatrist
DX: M79.2 Neuralgia and neuritis, unspecified (principal); Z79.899 Other long term (current) drug therapy
CPT/HCPCS: 80305

== ENCOUNTER → 2023-07-04 09:00 | Outpatient (CLI) | payer MEDICARE, BC, SELFPAY ==
--- NOTE | 2023-07-04 09:00 | XR_ITS ---
FINAL REPORT CLINICAL HISTORY: Right foot pain COMPARISON: 03/19/2022 FINDINGS: RIGHT FOOT 3 views of the right foot were obtained. There is no acute fracture or dislocation. There is a moderate plantar spur. There are advanced changes of osteoarthritis at the mortise. There is a large os trigonum measuring 1.6 cm. Soft tissues are unremarkable. IMPRESSION: Advanced osteoarthritis. Large os trigonum. Reviewed, Interpreted and Dictated by Michael Gtz MD Transcribed by Heike Almeida Authenticated and [facility]
--- NOTE | 2023-07-04 09:00 | XR_ITS ---
FINAL REPORT CLINICAL HISTORY: pain of right lower extremity x 8 years COMPARISON: None FINDINGS: 2 views of the right tibia/fibula were obtained. There is no acute fracture or dislocation. There are advanced hypertrophic changes at the mortise. There is fragmentation of the lateral joint margin, probably osteoarthritis from old trauma. There is dermal calcification in the posterior lower leg. There is no soft tissue abnormality. IMPRESSION: Advanced hypertrophic changes without acute fracture Reviewed, Interpreted and Dictated by Michael Gtz MD Transcribed by Heike Almeida Authenticated and [facility]
--- NOTE | 2023-07-04 09:00 | XR_ITS ---
FINAL REPORT TECHNIQUE: Bone densitometry calculations of the lumbar spine and left hip were obtained. CLINICAL HISTORY: ankle pain FINDINGS: Using L1-4, the bone mineral density of the spine is 0.973 g/cm2, corresponding to T-score of -1.1. Using the left hip, the bone mineral density of the femoral neck is 0.925 g/cm2, corresponding to a T-score of -0.7. Using the right hip, the bone mineral density of the femoral neck is 1.010 g/cm2, corresponding to a T-score of -0.2. NOTE: T-score: Standard deviation compared with peak bone mass of young adult mean. *Following the recommendations of the International Society of Bone densitometry, classification of hip BMD is based on the lower of two T-scores; total hip or femoral neck. IMPRESSION: Normal bone mineral density of the bilateral hips. Diminished bone mineral density of the lumbar spine consistent with osteopenia. FRAX data reports 7.4% major osteoporotic fracture and 0.3% hip fracture. Reviewed, Interpreted and Dictated by Michael Gtz MD Transcribed by Inés Juares Authenticated and [facility]
--- NOTE | 2023-07-04 09:00 | XR_ITS ---
FINAL REPORT TECHNIQUE: Chest PA & Lateral CLINICAL HISTORY: preop exam for ankle surgery smoker x 13 years COMPARISON: None FINDINGS: 2 views of the chest were performed. The heart size is normal. The mediastinum is within normal limits. There is no acute cardiopulmonary process. There are no pleural effusions. There is no pneumothorax. The bony thorax appears intact. IMPRESSION: No acute cardiopulmonary process. Reviewed, Interpreted and Dictated by Michael Gtz MD Transcribed by Heike Almeida Authenticated and [facility]
--- NOTE | 2023-07-04 09:00 | XR_ITS ---
FINAL REPORT CLINICAL HISTORY: Right foot pain x 8 years COMPARISON: None FINDINGS: RIGHT CALCANEUS 2 views were obtained. There is no acute fracture. There is a large irregularly marginated os trigonum measuring 1.7 cm. There is a moderate plantar spur. There is narrowing of the mortise with moderate osteophyte formation at the anterior and posterior joint margins. There is no soft tissue abnormality. IMPRESSION: Degenerative changes without acute process. Large os trigonum. Reviewed, Interpreted and Dictated by Michael Gtz MD Transcribed by Heike Almeida Authenticated and . [facility]
[2023-07-04 10:03] LABS: Basophils # 0.2 K/mm3 (0-0.2); Basophils % 2.4 % (0.1-2.0); Eosinophils # 0.3 K/mm3 (0.0-0.4); Eosinophils % 3.8 % (0.1-12.0); Hematocrit 47.9 % (42.0-52.0); Hemoglobin 16.3 g/dL (14.1-18.0); Lymphocytes # 2.3 K/mm3 (0.7-4.5); Lymphocytes % 29.1 % (10-50); Mean Corpuscular HGB Conc 34.1 g/dL (31.8-35.4); Mean Corpuscular Hemoglobin 32.1 pg (27.0-31.2); Mean Corpuscular Volume 94.2 fl (80-94); Mean Platelet Volume 6.8 fl (7.4-10.4); Monocytes # 0.6 K/mm3 (0.1-1.0); Monocytes % 7.7 % (1.7-9.3); Neutrophils # 4.6 K/mm3 (1.8-7.8); Neutrophils % 57.1 % (37.0-80.0); Platelet Count 473 K/mm3 (142-424); Red Blood Count 5.08 M/mm3 (4.60-6.20); Red Cell Distribution Width 13.9 % (11.5-17.5)
[2023-07-04 10:25] LABS: Erythrocyte Sedimentation Rate 15 mm/hr (0-20)
[2023-07-04 10:31] LABS: Chloride 105 mmol/L (98-107)
[2023-07-04 10:32] LABS: Potassium 4.3 mmoL/L (3.5-5.1); Sodium 141 mmol/L (136-145)
[2023-07-04 10:34] LABS: Alanine Aminotransferase 36 U/L (12-78); Aspartate Amino Transferase 37 U/L (17-59); Blood Urea Nitrogen 16 mg/dl (9-20); Estimated Glomerular Filt Rate 101 ml/min (>60); GFR (African American) 122 ML/MIN (>60)
[2023-07-04 10:35] LABS: Albumin Level 4.5 g/dl (3.5-5.0); Albumin/Globulin Ratio 1.5 (1.1-1.8); Alkaline Phosphatase 129 U/L (38-126); Anion Gap 12.3 mEq/L (5-15); Bilirubin,Total 0.2 mg/dl (0.2-1.3); Calcium 9.3 mg/dl (8.4-10.2); Carbon Dioxide 28 mmol/L (22.0-30.0); Glucose 91 mg/dl (74-100); Total Protein,Serum 7.5 g/dl (6.3-8.2)
[2023-07-05 08:28] LABS: RA Latex Turbid. 11.8 IU/mL (<14.0)
[2023-07-06 12:42] LABS: Antinuclear Antibodies, IFA Positive
[2023-07-10 12:14] LABS: 1,25 Dihydroxy Vitamin D 43 pg/mL (.); 1,25-Dihydroxy, Vitamin D-2 <10 pg/mL (.); 1,25-Dihydroxy, Vitamin D-3 35 pg/mL (.)
[2023-07-29 09:55] LABS: Cotinine 130.6; Nicotine 11.4
== END ==
LOC: RAD 09:00
PROVIDERS: PCP Emergency Medicine; Visit Provider Podiatrist
DX: M21.071 Valgus deformity, not elsewhere classified, right ankle (principal); M25.371 Other instability, right ankle; R60.0 Localized edema; M19.90 Unspecified osteoarthritis, unspecified site; M85.871 Other specified disorders of bone density and structure, right ankle and foot; M25.571 Pain in right ankle and joints of right foot; M85.89 Other specified disorders of bone density and structure, multiple sites
CPT/HCPCS: 36415; 71046; 73590; 73630; 73650; 77080; 80053; 80323; 82652; 84550; 85025; 85651; 86038; 86431

== ENCOUNTER 2023-08-21 16:58 | Outpatient (CLI) | payer MEDICARE, BC, SELFPAY ==
[2023-08-21 14:56] LABS: Amphetamine/Metha Screen,Urine Negative ng/ml (<1000); Barbiturates Screen,Urine Negative ng/ml (<200); Benzodiazepines Screen,Urine Positive ng/ml (<200); Cannabinoid Screen,Urine Positive ng/ml (<50); Cocaine Screen,Urine Negative ng/ml (<300); Methadone Screen,Urine Negative ng/ml (<300); Opiate Screen,Urine Negative ng/ml (<300); Phencyclidine Screen,Urine Negative ng/ml (<25)
[2023-08-26 10:00] LABS: Opiates Negative (Cutoff=100); Oxycodone (GC/MS) 2122 ng/mL (Cutoff=100); Oxymorphone (GC/MS) 403 ng/mL (Cutoff=100)
== END 2023-08-21 23:59 ==
LOC: LAB.DROPOF 16:59
PROVIDERS: PCP Family Medicine; Visit Provider Family Medicine
DX: Z79.899 Other long term (current) drug therapy (principal)
CPT/HCPCS: 80307; 80361; 80365; G0480

== ENCOUNTER 2023-09-02 11:46 | Outpatient (CLI) | payer MEDICARE, BC, SELFPAY ==
--- NOTE | 2023-09-02 | CA_ITS ---
APPROVED REPORT Exam: Pharmacologic Technologist: Lyudmila Woods, Ht: 5 ft 11 in Wt: 245 lbs BSA: 2.30 m2 HR: 67 bpm BP: 124/74 mmHg Rhythm: NSR Medical History Medications: Gabapentin,,,,, Diazepam,,,,, Allopurinol,,,,, Flonase,,,,, MeLOXICAM,,,,, OxYCODONE,,,,, Gemfibrozil,,,,, Trazodone,,,,, Losartan-HCTZ,,,,, BuPROPION HCI,,,,, Vitamin D2, D3,,,,, Escitlopram oxolate,,,,, Stress Test Details Test: LEXISCAN Reason for pharmacologic stress test: physical limitation. HR Resting HR: 57 bpm Max Heart Rate (APMHR): 166 bpm Max HR Achieved: 80 bpm Target HR (85% APMHR): 141 bpm % of APMHR: 48 Recovery HR: 75 bpm BP Resting BP: 124.0/74.0 mmHg Max BP: 140.0/72.0 mmHg Recovery BP: 140.0/72.0 mmHg ECG Resting ECG: Normal sinus rhythm Stress ECG: No significant ST changes Arrhythmia: None Clinical Exercise duration: 04:00 min Highest Stage Achieved: Stress ECG Conclusion Symptoms: Dizzy, SOA, No CP Arrhythmias/Ectopy: none ST-T Changes: No significant ST changes Conclusion: Unremarkable Lexiscan stress test. Myoview images are reported separately. Test Summary REST . . . . . . . Resting REST 06:59 . . 57 . 124/ 74 . . Stage 1 01:00 . . 66 . . . . Stage 2 01:00 . . 69 . 136/ 67 . . Stage 3 01:00 . . 65 . . . . Stage 4 01:00 . . 66 . 130/ 71 . Stop exercise at 04:00 RECOVERY 01:00 . . 75 . . . . RECOVERY 01:55 . . 75 . 140/ 72 . . Electronically signed by : Alma Churchill MD 09/03/2023 05:11:51
--- NOTE | 2023-09-02 11:47 | NM_ITS ---
APPROVED REPORT Exam: Nuclear Stress Test Indication: chest pain Patient Location: Outpatient Stress Tech: Lyudmila Elam [place] Tech:Stephanie Grissom MIKAL, RT (R)(N) Ht: 5 ft 10 in Wt: 240 lbs HR: 57 bpm BP: 124/74 mmHg BSA: 2.26 m2 TID: 1.10 BMI: 34.4 History: chest pain Procedure: Patient received 0.4 mg of intravenous Lexiscan, resting heart rate 57 bpm, resting blood pressure 124/74 mmHg, with Lexiscan maximum heart rate achieved was 80 bpm which is 85 % of the maximum predicted heart rate and blood pressure was 140/72 mmHg. With Lexiscan, patient denied any complaint of chest pain. Cardiac Stress and Resting SPECT Images: Cardiac Stress and Resting SPECT images were obtained using technetium 99m Myoview 30.7 mCi stress and 10.07 mCi at rest. Technically difficult study. Resting and stress imaging in supine and prone positions demonstrate a large sized, moderate, fixed perfusion defect in the inferior and lateral LV arzola. Gated imaging demonstrates normal global LV systolic function. There is mild hypokinesis of the basal inferior LV wall. LVEF is calculated at 55%. Conclusion: Technically difficult study. Large sized, moderate, fixed perfusion defect in the inferior and lateral LV arzola. No evidence of reversible ischemia. Gated imaging demonstrates normal global LV systolic function. There is mild hypokinesis of the basal inferior LV wall. LVEF is calculated at 55%. Electronically signed by : Alma Churchill MD 09/03/2023 05:14:23
--- NOTE | 2023-09-02 12:11 | CA_ITS ---
APPROVED REPORT EXAM: Comprehensive 2D, Doppler, and color-flow Echocardiogram Motor Vehicle License Clerk: Mary Davenport RVT Ht: 5 ft 11 in Wt: 245lbs BSA: 2.30 BP: 140/74 mmHg Indications: Shortness of Breath, Fatigue, Hyperlipidemia, Hypertension/HDD, smoker 2D Dimensions LA Volume 60.10 mL LA Volume Index 26.643226 mL/m2 (M/F) 16-34 M-Mode Dimensions RVDd 3.04 cm (0.9-2.6) LA Diam 4.66 cm (1.9-4.0) LVDd 4.03 cm (3.5-5.7) LVDs 2.62 cm (3.5-5.7) IVSd 1.17 cm (0.6-1.1) PWd 0.89 cm (0.6-1.1) EF (Teich) 64.80% FS 35.00% EDV (Teich) 71.30 mL TAPSE 2.68 (<1.7) ESV (Teich) 25.10 mL LV Diastology E Decel Time 237 (160-240 msec) E/A Ratio 1.47 Aortic Valve LEELA Index 1.71 cm2/m2 AoV Peak Marcell. 182.0 (50-130 cm/s) AO Peak GR. 13.20 mmHg AO Mean GR. 6.70 (<5 mmHg) AO VTI 35.7 (18-25 cm) LEELA (VTI) 4.02 (2.5-4.5 cm2) Mitral Valve MV E Max Marcell. 103.0 (40-130 cm/s) MV A Velocity 70.0 (40-130 cm/s) E/A Ratio 1.47 MV PHT 69.0 ms Pulmonary Valve PV Peak Velocity 79.0 (50-150 cm/s) Tricuspid Valve TR P. Velocity 185.00 cm/s RAP Estimate 10.00 mmHg RVSP 23.60 mmHg Left Ventricle The left ventricle is normal size. The left ventricular systolic function is normal. The left ventricular ejection fraction is within the normal range. There is increased LV wall thickness. There is normal LV segmental wall motion. The left ventricular diastolic function is normal. LVEF is 55%. Right Ventricle The right ventricle is normal size. The right ventricular systolic function is normal. Atria The left atrium size is normal. The right atrium size is normal. There is no Doppler evidence of interatrial shunt. Aortic Valve The aortic valve is mildly thickened. There is no aortic valvular stenosis. No aortic regurgitation is present. Mitral Valve The mitral valve leaflets are mildly thickened. No evidence of mitral valve stenosis. Trace mitral regurgitation. Tricuspid Valve The tricuspid valve leaflets are thin and pliable. Mild tricuspid regurgitation. RVSP is normal. Pulmonic Valve The pulmonary valve is normal in structure. Trace pulmonic regurgitation. Great Vessels The aortic root is normal in size. The ascending aorta is normal in size. IVC is normal in size and collapses >50% with inspiration. Pericardium There is no pericardial effusion. Other Information Study Quality: Fair Conclusion Normal biventricular size and function. Mild TR. Electronically signed by : Alma Churchill MD 09/05/2023 02:57:15
[2023-09-02] MEDS: SODIUM CHLORIDE 0.9% 10ML SYR (RAD ONLY) 10 ML IV ×2 (13:31→13:32)
[2023-09-02] MEDS: REGADENOSON 0.4MG/5ML SYRINGE 0.400000000000000022 MG IV (13:31)
[2023-09-02] MEDS: ISOTOPE MYOVIEW (PER STUDY) 1 DOSE IV (13:32)
== END 2023-09-02 23:59 ==
LOC: RAD 11:47
PROVIDERS: PCP Family Medicine; Visit Provider Family Medicine
DX: R06.09 Other forms of dyspnea (principal); I20.89 Other forms of angina pectoris; R53.83 Other fatigue; Z82.49 Family history of ischemic heart disease and other diseases of the circulatory system
CPT/HCPCS: 78452; 93017; 93018; 93306; A9502; J2785

== ENCOUNTER 2023-09-27 12:19 | Outpatient (CLI) | payer MEDICARE, BC, SELFPAY ==
--- NOTE | 2023-09-27 12:24 | XR_ITS ---
FINAL REPORT CLINICAL HISTORY: ankle injury FINDINGS: RIGHT ANKLE 3 views of the right ankle were obtained. There is no acute fracture or dislocation. There are severe degenerative changes of the ankle. There is lateral angulation of the talus at the tibiotalar joint. Soft tissue calcifications are seen of the distal lower leg. There are calcaneal spurs. There is lateral soft tissue swelling. IMPRESSION: Degenerative changes without acute bony abnormality. Reviewed, Interpreted and Dictated by Sj Vallejo III, MD Transcribed by Fatou Sesay Authenticated and [facility]
--- NOTE | 2023-09-27 12:24 | XR_ITS ---
FINAL REPORT CLINICAL HISTORY: foot injury FINDINGS: RIGHT FOOT 3 views of the right foot were obtained. There is no acute fracture or dislocation. There is mild hallux valgus deformity. Mild degenerative changes are seen. There is calcaneal spurring. Visualized joint spaces are normally aligned. Soft tissues are unremarkable. IMPRESSION: No acute bony abnormality. Reviewed, Interpreted and Dictated by Sj Vallejo III, MD Transcribed by Fatou Sesay Authenticated and [facility]
== END 2023-09-27 23:59 ==
LOC: RAD 12:21
PROVIDERS: PCP Family Medicine; Visit Provider Podiatrist
DX: M79.671 Pain in right foot (principal); M25.571 Pain in right ankle and joints of right foot
CPT/HCPCS: 73610; 73630

== ENCOUNTER 2023-10-04 06:55 | Outpatient (CLI) | payer MEDICARE, BC, SELFPAY ==
--- NOTE | 2023-10-04 07:10 | CT_ITS ---
APPROVED REPORT Disc Pad Grinding Machine Feeder: CLINICAL INDICATION Chest Pain TECHNIQUE Image Acquisition: A 128 slice MDCT scanner ([employer] View) was used for data acquisition. A noncontrast coronary calcium scan was performed. A CT attenuation threshold of 130 Hounsfield units (HU) was used for the detection of calcium in contiguous voxels of 1 sq mm in area to be counted as individual lesions. Bolus tracking in the ascending aorta with a threshold of 180 HU was performed. Immediately afterwards, ECG synchronized cardiac CT was then performed from the cardiac base to apex using retrospective gating with ECG tube current modulation. A total of 85 mL of Isovue 370 mg/mL contrast medium was administered at 5 mL/sec followed by a saline flush using a biphasic injection protocol. A tube voltage of 120 KVp was used. The patient received the following medications prior to the cardiac CT. 0.8 mg of sublingual nitroglycerin The average heart rate at the time of acquisition was 53 bpm and regular. Image Reconstruction Transaxial images were reconstructed at 0.67 mm slide thickness. Data was reviewed interactively on an advanced workstation capable of 2 and 3-dimensional displays in all conventional reconstruction formats, including multiplanar reformations, maximum intensity projections, curved multiplanar reformations, and volume rendered reconstructions. When applicable, selected routine images describing the relevant coronary anatomy and pathology were saved and sent to PACS. Complications None Technical Quality Overall image quality was good. Coronary artery opacification was adequate. Total DLP (Dose-Length Product) is 1646.7 mGy-cm. The reported value represents the total of one or more individual components during the CT acquisition of this date and at this time, and as such, the same value may appear in more than one CT report depending on the interpreting/reporting physicians. COMPARISON None FINDINGS CT Coronary Calcium Scoring LMA (Left Main Artery) = 0 LAD (Left Anterior Descending) = 11 LCX (Left Coronary Circumflex) = 1 RCA (Right Coronary Artery) = 0 Total Calcium Score = 12 using the AJ-130 method. The observed calcium score of 12 is at 58th percentile for subjects of the same age, sex, and race/ethnicity. The interpretation of the calcium heart score is based on the following continuum*: 0 = no calcified plaque detected (risk of coronary artery disease is very low ??? less than 5%) 1-10 = calcium detected in extremely minimal levels (risk of coronary diseases is still low ??? less than 10%) 11-100 = mild levels of plaque detected with certainty (mild or minimal narrowing of heart arteries is likely) 101-400 = definite,at least moderate levels of plaque detected (relatively high risk of a heart attack within 3-5 years) >401-999 = extensive levels of plaque detected (high risk of heart attack, high levels of vascular disease are present, high likelihood of at least one significant coronary narrowing) *The calcium heart score quantifies the burden of coronary calcification/plaque in the coronary arteries. The calcium heart score is not able to evaluate the presence or burden of non-calcified (i.e. soft) plaque. There is identifiable calcification in the ascending, descending, and transverse aorta. Coronary CT Angiography The coronary arterial system is left dominant. Quantitative Stenosis Grading: Left Main (LM): The left main originates normally from the left sinus of Valsalva. The LM trifurcates into the left anterior descending artery, ramus intermedius, and left circumflex artery. The LM is patent with no evidence of atherosclerosis. Left Anterior Descending (LAD) and Diagonal Branches: The LAD gives off 2 diagonal branch(es). There is mild calcification in the proximal LAD segment, but without evidence of luminal stenosis. There is no evidence of LAD-myocardial bridge. Ramus-intermedius (RI): The RI is patent. Left Circumflex (LCX) and Obtuse Marginals (OM): The LCX gives off 2 Obtuse Marginal (OM) branch(es). The LCX gives off a posterior descending artery (PDA) branch. There is 1 focus of calcification in the proximal LCx, but without evidence of luminal stenosis. Right Coronary Artery (RCA): The RCA is a small-caliber vessel. The RCA originates normally from the right sinus of Valsalva. The RCA and its branches are patent with no evidence of atherosclerosis. Non-Coronary Cardiac Findings: Analysis of the left ventricular (LV) structure and function was performed after 3-D reconstruction of the LV from axial images, with user-corrected automatic contouring for assessment of LV volumes and user-defined reconstruction from oblique planes for measurement of 3-D cardiac structure and function. -The left ventricle systolic function is normal (LVEF 56%) -There is no left atrial appendage filling defect. Two right pulmonary veins and two left pulmonary veins drain normally into the left atrium. -No pericardial thickening or calcification. -Central and branch pulmonary arteries in the [id number] are unremarkable. -Thoracic aorta within the visualized thoracic aortic-branches in the [id number] is unremarkable. Extracardiac Structures No significant extra-cardiac findings. Note, however, that this study is focused on the cardiac findings. IMPRESSION -Presence of mild coronary calcification with an Agatston score = 12 using the AJ-130 method. -The observed calcium score of 12 is at 58th percentile for subjects of the same age, sex, and race/ethnicity. -No evidence of significant flow-limiting atherosclerosis of the coronary arteries. -CAD-RADS 1. Management recommendations per ACC/AHA guidelines*, as clinically appropriate. -Identifiable calcification in the ascending, descending, and transverse aorta. *Recommendations: CAD RADS 0: Reassurance. Consider non-atherosclerotic causes of chest pain. CAD RADS 1: Consider non-atherosclerotic causes of chest pain. Consider preventive therapy and risk factor modification. CAD RADS 2: Consider non-atherosclerotic causes of chest pain. Consider preventive therapy and risk factor modification, particularly for patients with nonobstructive plaque in multiple segments. CAD RADS 3: Consider further functional testing. Consider symptom-guided anti-ischemic and preventive pharmacotherapy as well as risk factor modification per published guideline statements. CAD RADS 4A: Consider further functional testing or invasive coronary angiography with revascularization per published guideline statements. Consider symptom-guided anti-ischemic and preventive pharmacotherapy as well as risk factor modification per published guideline statements. CAD RADS 4B: Invasive coronary angiography recommended with revascularization per published guideline statements. Consider symptom-guided anti-ischemic and preventive pharmacotherapy as well as risk factor modification per published guideline statements. CAD RADS 5: Consider invasive angiography and/or viability assessment with revascularization per published guideline statements. Consider symptom-guided anti-ischemic and preventive pharmacotherapy as well as risk factor modification per published guideline statements. CRITICAL RESULT None COMMUNICATION Per this written report The coronary and cardiac findings of this CCTA were reviewed, reported, and signed by Roger Churchill MD (Parts Data Writer) Conclusion Electronically signed by : Alma Churchill MD 10/07/2023 12:05:28
[2023-10-04 07:23] VITALS: BMI 34.2
[2023-10-04 08:10] LABS: Chloride 107 mmol/L (98-107); Potassium 4.3 mmoL/L (3.5-5.1); Sodium 141 mmol/L (136-145)
[2023-10-04 08:13] LABS: Anion Gap 7.3 mEq/L (5-15); Blood Urea Nitrogen 17 mg/dl (9-20); Carbon Dioxide 31 mmol/L (22.0-30.0); Creatinine Clearance Estimated 147 mL/min (50-200); Estimated Glomerular Filt Rate 88 ml/min (>60); GFR (African American) 106 ML/MIN (>60)
[2023-10-04 08:14] LABS: Calcium 9.3 mg/dl (8.4-10.2); Glucose 105 mg/dl (74-100)
[2023-10-04 08:48] VITALS: BP 127/60; PULSE 50; RESP 16; O2SAT 95
[2023-10-04 08:53] VITALS: BP 116/69; PULSE 51; RESP 16; O2SAT 96
[2023-10-04 09:00] VITALS: BP 100/49; PULSE 50; RESP 16; O2SAT 96
[2023-10-04 09:05] VITALS: BP 131/75; PULSE 55; RESP 16; O2SAT 96
[2023-10-04] MEDS: SODIUM CHLORIDE 0.9% 10ML SYR (RAD ONLY) 10 ML IV (09:05)
[2023-10-04] MEDS: 0.9 % SODIUM CHLORIDE 50 ML VIAL IV (09:05)
[2023-10-04] MEDS: IOPAMIDOL-370 (76%);100ML BOTTLE 85 ML IV (09:06)
== END 2023-10-04 09:10 | disposition home or self-care (01) ==
PROVIDERS: PCP Family Medicine; Visit Provider Physician Assistant
DX: E78.5 Hyperlipidemia, unspecified (principal); I73.9 Peripheral vascular disease, unspecified; R06.09 Other forms of dyspnea; R07.89 Other chest pain; Z82.49 Family history of ischemic heart disease and other diseases of the circulatory system
CPT/HCPCS: 75571; 75574; 80048; Q9967

== ENCOUNTER 2023-11-21 16:37 | Emergency (ER) | payer MEDICARE, BC, SELFPAY ==
[2023-11-21 16:50] VITALS: BP 127/67; PULSE 60; RESP 20; TEMP 36.8; O2SAT 96; BMI 34.7
--- NOTE | 2023-11-21 17:07 | ED_ITS ---
Discharge Plan Disposition Patient Disposition: Home, Self-Care Condition: Good Prescriptions Prescriptions: New methylprednisolone [Medrol (Moise)] 4 mg tablets,dose pack See Rx Instructions .Route .COMPLEX 6 Days Qty: 21 0RF Rx Instructions: taper pack; amoxicillin-pot clavulanate 875-125 mg Tablet 1 tab PO Q12H 7 Days Qty: 14 0RF No Action diazepam 5 mg tablet 2.5 mg PO QHS Qty: 15 0RF Vraylar 1.5 mg capsule 1.5 mg PO DAILY Qty: 30 2RF allopurinol 300 mg tablet See Rx Instructions .ROUTE .COMPLEX Qty: 90 5RF Dose Instruction: TAKE ONE TABLET BY MOUTH EVERY DAY Rx Instructions: TAKE ONE TABLET BY MOUTH EVERY DAY bisoprolol fumarate 5 mg tablet 5 mg PO DAILY Qty: 30 2RF escitalopram oxalate 20 mg tablet See Rx Instructions .ROUTE .COMPLEX Qty: 90 0RF Dose Instruction: TAKE ONE TABLET BY MOUTH EVERY DAY Rx Instructions: TAKE ONE TABLET BY MOUTH EVERY DAY fluticasone propionate 50 mcg/actuation spray,suspension See Rx Instructions .ROUTE .COMPLEX Qty: 16 2RF Dose Instruction: instill 1 SPRAY IN EACH NOSTRIL EVERY DAY FOR allergies Rx Instructions: instill 1 SPRAY IN EACH NOSTRIL EVERY DAY FOR allergies gabapentin 600 mg tablet 600 mg PO TID Qty: 90 1RF gemfibrozil 600 mg tablet See Rx Instructions .ROUTE .COMPLEX Qty: 180 5RF Dose Instruction: TAKE ONE TABLET BY MOUTH TWICE DAILY Rx Instructions: TAKE ONE TABLET BY MOUTH TWICE DAILY losartan-hydrochlorothiazide 50-12.5 mg tablet 1 tab PO DAILY Qty: 90 3RF meloxicam 15 mg tablet See Rx Instructions .ROUTE .COMPLEX Qty: 30 5RF Dose Instruction: TAKE ONE TABLET BY MOUTH EVERY DAY --TAKE WITH FOOD-- Rx Instructions: TAKE ONE TABLET BY MOUTH EVERY DAY --TAKE WITH FOOD-- niacin 500 mg tablet extended release 24 hr See Rx Instructions .ROUTE .COMPLEX Qty: 90 5RF Dose Instruction: TAKE ONE TABLET BY MOUTH EVERY DAY AT BEDTIME Rx Instructions: TAKE ONE TABLET BY MOUTH EVERY DAY AT BEDTIME bupropion HCl 150 mg tablet sustained-release 12 hr See Rx Instructions .ROUTE .COMPLEX Qty: 180 5RF Dose Instruction: TAKE ONE TABLET BY MOUTH TWICE DAILY Rx Instructions: TAKE ONE TABLET BY MOUTH TWICE DAILY cholecalciferol (vitamin D3) 25 mcg (1,000 unit) capsule See Rx Instructions .ROUTE .COMPLEX Qty: 90 5RF Dose Instruction: TAKE ONE CAPSULE BY MOUTH EVERY DAY Rx Instructions: TAKE ONE CAPSULE BY MOUTH EVERY DAY ergocalciferol (vitamin D2) 1,250 mcg (50,000 unit) capsule See Rx Instructions .Route .COMPLEX Qty: 14 3RF Rx Instructions: TAKE ONE CAPSULE BY MOUTH ONCE A WEEK varenicline [Chantix Starting Month Box] 0.5 mg (11)- 1 mg (42) tablets,dose pack See Rx Instructions PO PER PKG DIR Qty: 53 0RF Rx Instructions: PO PER PKG DIR oxycodone 10 mg tablet 10 mg PO QID PRN (Reason: pain) Qty: 120 0RF Referrals Follow up/Referrals: Nehemias Powers DO [Primary Care Provider] - See instructions Activity Restrictions/Add. Instructions Additional Instructions/Restrictions: Take meidcation as prescribe Over the counter Motrin and/or Tylenol for fever or headache Follow up with your Family Doctor if no improvement or any worsening of symptoms Return if needed Clinical Impressions Clinical Impression: Sinusitis Instructions Patient Instructions: DI for Sinusitis, Sinusitis, DI for Cerumen Impaction Discharge ED Provider: Audrey Leija [facility] General Stated complaint: headache,ear full of wax ,allergies Mode of Arrival: Ambulatory Source of Information: Patient Limitations: No Limitations Time Seen by Provider: 11/21/23 17:09 Description of Symptoms (Recalled from Triage Doc. by RN): PATIENT C/O CONGESTION AND COUGH X 3 WEEKS AND LEFT EAR STOPPED UP HEENT Symptoms (Recalled from RN notes): Yes Resp Symptoms (Recalled from RN notes): No Skin Symptoms (Recalled from RN notes): No MS Symptoms (Recalled from RN notes): No Functional Status (Recalled from RN notes): WNL History of Present Illness Provider Complaint: Patient states that he has been having sinus pain and pressure started out as what he thought was allergies several weeks ago but got worse over the last week States that he also thinks his ears is stopped up with wax he tried to get it out but thinks he pushed it deeper in there and wants that looked at home Related Data Previous Rx's Medication Instructions Recorded bupropion HCl 150 mg tablet,12 hr See Rx Instructions .Route 07/05/23 sustained-release .COMPLEX #180 tabs cholecalciferol (vitamin D3) 25 See Rx Instructions .Route 07/05/23 mcg (1,000 unit) capsule .COMPLEX #90 caps allopurinol 300 mg tablet See Rx Instructions .Route 10/02/23 .COMPLEX #90 tabs bisoprolol fumarate 5 mg tablet 5 mg PO DAILY #30 tabs 10/02/23 cariprazine 1.5 mg capsule 1.5 mg PO DAILY anxiety #30 caps 10/02/23 (Vraylar) escitalopram oxalate 20 mg tablet See Rx Instructions .Route 10/02/23 .COMPLEX #90 tabs fluticasone propionate 50 See Rx Instructions .Route 10/02/23 mcg/actuation nasal .COMPLEX #16 grams spray,suspension gabapentin 600 mg tablet 600 mg PO TID Pain #90 tabs 10/02/23 gemfibrozil 600 mg tablet See Rx Instructions .Route 10/02/23 .COMPLEX #180 tabs losartan 50 mg-hydrochlorothiazide 1 tab PO DAILY #90 tabs 10/02/23 12.5 mg tablet meloxicam 15 mg tablet See Rx Instructions .Route 10/02/23 .COMPLEX #30 tabs niacin 500 mg tablet,extended See Rx Instructions .Route 10/02/23 release 24 hr .COMPLEX #90 tabs diazepam 5 mg tablet 2.5 mg (1/2 x 5 mg) PO QHS anxiety 10/28/23 #15 tabs ergocalciferol (vitamin D2) 1,250 See Rx Instructions .Route 11/04/23 mcg (50,000 unit) capsule .COMPLEX Supplement #14 caps varenicline 0.5 mg (11)-1 mg (42) See Rx Instructions PO PER PKG DIR 11/04/23 tablets in a dose pack (Chantix #53 tabs Starting Month Box) oxycodone 10 mg tablet 10 mg PO QID PRN pain #120 tabs 11/05/23 amoxicillin 875 mg-potassium 1 tab PO Q12H 7 days #14 tabs 11/21/23 clavulanate 125 mg tablet methylprednisolone 4 mg tablets in See Rx Instructions .Route 11/21/23 a dose pack (Medrol (Moise)) .COMPLEX 6 days #21 tabs Allergies Allergy/AdvReac Type Severity Reaction Status Date / Time No Known Allergies Allergy Verified 10/25/23 09:55 Worker's Comp Is this a Worker's Comp case?: No [facility] Disclaimer: The information contained in this section may have been updated after the patient was seen, as this information can be updated by other users. Medical History Sinus congestion Sinus pressure Chest congestion Persistent dry cough Puncture wound of plantar aspect of foot Strep throat Surgical History History of left shoulder replacement History of appendectomy Family History Other Family history of diabetes mellitus type I Family history of hyperlipidemia Family history of hypertension Family history of myocardial infarction Social History Smoking Status: Current every day smoker tobacco type: cigarettes packs per day: 1 second hand exposure: Yes alcohol intake: never substance use type: marijuana current occupational status: disabled Travel in the last 8 weeks: None household members: family and children housing: house current occupation: [employer] current occupational exposures/hazards: No caffeine: Yes ROS Obtained: Yes All systems reviewed & no additional complaints except as documented and Yes Systems reviewed as appropriate & no additional complaints except as documented Constitutional Constitutional: Reports system reviewed and no additional complaints, except as documented, Reports as per HPI and Reports headache(s) ENT Ears, Nose, Mouth, and Throat: Reports system reviewed and no additional complaints, except as documented, Reports as per HPI, Reports otalgia (ears stopped up with wax), Reports headache(s), Reports sinus pain and Reports sinus pressure Cardiovascular Cardiovascular: Reports system reviewed and no additional complaints, except as documented and Reports as per HPI Respiratory Respiratory: Reports system reviewed and no additional complaints, except as documented, Reports as per HPI and Reports cough Gastrointestinal Gastrointestingal: Reports system reviewed and no additional complaints, except as documented and as per HPI Neurologic Neurologic: Reports headache(s) Physical Exam General General appearance: alert and in no apparent distress ENT ENT exam: Present mucous membranes moist Expanded ENT Exam TM/Canal exam: Bilateral TM: cerumen impaction (bilateral) Nose exam: Present sinus tenderness Respiratory Respiratory exam: Present normal lung sounds bilaterally; Absent respiratory distress or wheezes Cardiovascular Cardiovascular exam: Present regular rate, normal rhythm and normal heart sounds Neurological Exam Neurological exam: Present alert, oriented X3 and normal gait Medical Decision Making Evans Inquiry Pt receiving controlled substance: No Evans was queried for this patient: No Vital Signs: 11/21/23 16:50 Temperature 98.2 F Temperature Source Oral Pulse Rate [Left Brachial] 60 Respiratory Rate 20 Blood Pressure [Left Arm] 127/67 Blood Pressure Mean [Left Arm] 87 Blood Pressure Source [Left Arm] Automatic Cuff Blood Pressure Position [Left Arm] Sitting 02 Sat by Pulse Oximetry 96 Oxygen Delivery Method Room Air Medical Decision Narrative: Patient states that he has taken Augmentin and Medrol in the past without complications or reactions with current medications Procedures Ear Wax Removal Both Ears: Cerumenolytic Used: other Results: Re-examined: cerumen removed completely and some cerumen remains (small amount remains in right) TM Examination: TM(s) intact, normal appearance Ear Canal Exam: atraumatic Patient Tolerated Procedure: well and no complications Complications: no problems Technique: ear canal irrigated
[2023-11-21 17:36] VITALS: BP 127/67; PULSE 60; RESP 20; TEMP 36.8; O2SAT 96
== END 2023-11-21 17:47 | disposition home or self-care (01) ==
PROVIDERS: Emergency Provider Nurse Practitioner; PCP Internal Medicine
DX: J01.90 Acute sinusitis, unspecified (principal); R51.9 Headache, unspecified; H61.23 Impacted cerumen, bilateral; F17.210 Nicotine dependence, cigarettes, uncomplicated
CPT/HCPCS: 69210; 69209; 99204; 99213; G0463

== ENCOUNTER 2024-03-10 13:11 | Outpatient (CLI) | payer MEDICARE, BC, SELFPAY ==
--- NOTE | 2024-03-10 13:14 | XR_ITS ---
FINAL REPORT CLINICAL HISTORY: Lt Knee Pain COMPARISON: 12/28/2022 FINDINGS: LEFT KNEE 3 views of the left knee were obtained. There is no acute fracture or dislocation. There is severe joint space narrowing of the medial compartment, significantly progressed compared to the prior study. There is mild degenerative change of the patellofemoral joint which is also worse. Soft tissues are unremarkable. IMPRESSION: Progressive degenerative joint disease. Reviewed, Interpreted and Dictated by Simón Adan MD Transcribed by Heike Almeida Authenticated and [facility]
--- OUTSIDE RECORDS SUMMARY | 2024-03-10 13:15 | XMS_ITS | Clinical Summary ---
Author Name Unknown Address [address] [address] Phone Organization [facility] Address [address] [address] Phone Care Team Providers Care Millinery Copyist Name Role Phone María Elena RAZO, Bhavin Dial Primary Care Provider [phone] Melba RAZO, Joseph Unavailable [phone] Reason for Visit and Chief Complaint The Chief Complaint is: Cervical pain Problems Includes: Problems addressed during this encounter and other active Problems All Visits Onset Date Resolved Date Provider Condition S tatus History of Joint Pain, Localized in the Left Shoulder 10/23/2021 Roque Patel MD Active Last Documented On 2 11:16AM ; [facility] Neck Pain 10/16/2021 GAURANG BADILLO PA-C Activ e Last Documented On 2 2:09PM ; [facility] Plan of Treatment Repeat facet medial branch block for possible left facet rhizotomy. As a starting have symptoms on the right side will go ahead and inject the right side as well. Follow-up thereafter for reassessment. - Last Documented On 11/29/2021 9:54AM ; [facility] Instructions to patient Lose weight Last Documented On 2 9:36AM ; [facility] Assessments Includes: Assessments from this encounter Findi
--- OUTSIDE RECORDS SUMMARY | 2024-03-10 13:15 | XMS_ITS | Clinical Summary ---
Author Name Unknown Address [address] [place] [address] Phone Organization [facility] , [facility] Address [address] [place] [address] Phone Care Team Providers Care Junior Systems Analyst Name Role Phone María Elena RAZO, Bhavin Dial Primary Care Provider [phone] Melba RAZO, Joseph Unavailable [phone] Reason for Referral Date Encounter Description Provider Reason for Referral 01/29/22 Post Op Karlo Nguyen PA-C Refe rral To Physician; Referral To Physician Reason for Visit and Chief Complaint The Chief Complaint is: Left shoulder follow up Problems Includes: Problems addressed during this encounter and other active Problems All Visits Onset Date Resolved Date Provider Condition S tatus History of Joint Pain, Localized in the Left Shoulder 10/23/2021 Roque Patel MD Active Last Documented On 2 11:16AM ; [facility] Neck Pain 10/16/2021 GAURANG BADILLO PA-C Activ e Last Documented On 2 2:09PM ; [facility] Plan of Treatment Patient understands the restrictions postoperatively. Operative details were explained to the patient. Sling use will be continued. Patient can have active motion of the elbow, forearm, wrist and hand. Physical therapy referral will be given if required. Patient will follow-up as scheduled. If there is any questions or concerns they can call our office. - Last Documented On 01/29/2022 9:54AM ; [facility]
--- OUTSIDE RECORDS SUMMARY | 2024-03-10 13:15 | XMS_ITS | Clinical Summary ---
Author Name Unknown Address [address] [place] [address] Phone Organization [facility] Address [address] [place] [address] Phone Care Team Providers Care Makeup Sales Consultant Name Role Phone María Elena RAZO, Bhavin Dial Primary Care Provider [phone] Melba RAZO, Joseph Unavailable [phone] Reason for Referral Date Encounter Description Provider Reason for Referral 12/06/21 Follow Up Roque Patel MD Refe rral To Physician Reason for Visit and Chief Complaint The Chief Complaint is: left shoulder pain Problems Includes: Problems addressed during this encounter and other active Problems All Visits Onset Date Resolved Date Provider Condition S tatus History of Joint Pain, Localized in the Left Shoulder 10/23/2021 Roque Patel MD Active Last Documented On 2 11:16AM ; [facility] Neck Pain 10/16/2021 GAURANG Dove e Last Documented On 2 2:09PM ; [facility] Plan of Treatment SURGICAL PLAN: I REVIEWED THE MRI IMAGES WITH PATIENT. AFTER GOING THROUGH THE EXAM AND DURATION OF SYMPTOMS, I RECOMMENDED SURGICAL INTERVENTION. I EXPLAINED THE REASONING FOR THIS. I EXPLAINED THE PROCEDURE AND RECOVERY TO THE PATIENT. I EXPLAINED THAT THE ATROPHY OF THE MUSCLES COULD AFFECT THE RESULT. HE IS UNDERSTANDING OF THIS. The patient understands the risk of surgery to include but are not limited to infection, possible nerve da
--- OUTSIDE RECORDS SUMMARY | 2024-03-10 13:15 | XMS_ITS | Clinical Summary ---
Author Name Unknown Address [address] [place] [address] Phone Organization [facility] Address [address] [place] [address] Phone Care Team Providers Care Paint Specialist Name Role Phone María Elena RAZO, Bhavin Dial Primary Care Provider [phone] Melba RAZO, Joseph Unavailable [phone] Reason for Visit and Chief Complaint [facility] Problems Includes: Problems addressed during this encounter and other active Problems All Visits Onset Date Resolved Date Provider Condition S tatus History of Joint Pain, Localized in the Left Shoulder 10/23/2021 Roque Patel MD Active Last Documented On 2 11:16AM ; [facility], [facility] Neck Pain 10/16/2021 GAURANG BADILLO PA-C Activ e Last Documented On 2 2:09PM ; [facility], [facility] Plan of Treatment Pending Tests Order Diagnosis Results Due Ordering P ronimesh Radiology - MRI MRI Shoulder 11/06/21 Roque Patel MD Last Documented On 2 9:31AM ; [facility], [facility] Assessments Includes: Assessments from this encounter No Assessments Recorded Medical Equipment - Implanted Devices Includes: Current Devices No Medical Equipment Recorded Medications Includes: Medications discussed during this encounter and other current Medications Current Medications (continue as prescribed)
--- OUTSIDE RECORDS SUMMARY | 2024-03-10 13:15 | XMS_ITS | Clinical Summary ---
Author Name Unknown Address [address] [place] [address] Phone Organization [facility] Address [address] [place] [place] [address] Phone Care Team Providers Care Match Up Worker Name Role Phone María Elena RAZO, Bhavin Dial Primary Care Provider [phone] Melba RAZO, Joseph Unavailable [phone] Reason for Visit and Chief Complaint [Patient Encounter] Problems Includes: Problems addressed during this encounter and other active Problems All Visits Onset Date Resolved Date Provider Condition S tatus History of Joint Pain, Localized in the Left Shoulder 10/23/2021 Roque Patel MD Active Last Documented On 2 11:16AM ; [facility], [facility] Neck Pain 10/16/2021 GAURANG Dove e Last Documented On 2 2:09PM ; [facility], [facility] Plan of Treatment Pending Tests Order Diagnosis Results Due Ordering P rovider Radiology - MRI MRI Shoulder 11/06/21 Roque Patel MD Last Documented On 2 9:31AM ; [facility], [facility] Assessments Includes: Assessments from this encounter No Assessments Recorded Medical Equipment - Implanted Devices Includes: Current Devices No Medical Equipment Recorded Medications Includes: Medications discussed during this encounter and other current Medications New / Renewed during this visit Roque Patel MD on
--- OUTSIDE RECORDS SUMMARY | 2024-03-10 13:15 | XMS_ITS ---
Care Plan - [facility], [facility] Created on: March 10, 2024 Travis Burgess : 1970 Sex: Male Author Name Unknown Address [address] [place] [address] Phone Organization [facility] Address [address] [place] [address] Phone Care Team Providers Care Woven Blind Loom Tender Name Role Phone María Elena RAZO, Bhavin Dial Primary Care Provider [phone] Joseph Reilly MD Unavailable [phone]
--- OUTSIDE RECORDS SUMMARY | 2024-03-10 13:15 | XMS_ITS ---
Author Name Unknown Address [address] [place] [address] Phone Organization [facility] Address [address] [place] [address] Phone Care Team Providers Care Home Care Attendant Name Role Phone María Elena RAZO, Bhavin Dial Primary Care Provider [phone] Melba RAZO, Joseph Unavailable [phone] Reason for Referral Date Encounter Description Provider Reason for Referral 01/29/22 Post Op Karlo Nguyen PA-C Refe rral To Physician; Referral To Physician 12/06/21 Follow Up Roque Patel MD Refe rral To Physician 10/23/21 IN HOUSE REFERRAL Roque Patel MD Referral To Physician 10/16/21 Physician Specified GAURANG BADILLO PA-C R eferral To Physician Problems Includes: Active, inactive, and resolved Problems All Visits Onset Date Resolved Date Provider Condition S tatus History of Joint Pain, Localized in the Left Shoulder 10/23/2021 Roque Patel MD Active Last Documented On 2 11:16AM ; [facility], [facility] Neck Pain 10/16/2021 GAURANG BADILLO PA-C Activ e Last Documented On 2 2:09PM ; [facility], [facility] Plan of Treatment Pending Tests Order Diagnosis Results Due Ordering P rovider Radiology - MRI MRI Shoulder 11/06/21 Roque Patel MD Last Documented On 10/27
== END 2024-03-10 23:59 | disposition home or self-care (01) ==
LOC: RAD 13:12
PROVIDERS: PCP Family Medicine; Visit Provider Physician Assistant
DX: M25.562 Pain in left knee (principal)
CPT/HCPCS: 73562

== ENCOUNTER 2025-03-10 09:26 | Day surgery (SDC) | payer MEDICARE, MEDICAID, SELFPAY ==
[2025-03-08 15:24] VITALS: BMI 33.5
--- NOTE | 2025-03-10 07:19 | P.HP_ITS ---
History of Present Illness *Admission Date: 03/10/25 *Reason for visit:: Screening for colon cancer *History of present illness: Mr. Burgess is a 54-year-old gentleman who is here for initial screening colonoscopy. The examination is deemed medically necessary for screening colonoscopy. The patient has been seen, interviewed and examined prior to the procedure by both myself and the anesthesia provider. [facility] Disclaimer: The information contained in this section may have been updated after the patient was seen, as this information can be updated by other users. Medical History Gout Atypical angina Anginal equivalent Family history of [place] (myocardial infarction) Family history of early CAD Atypical chest pain Persistent dry cough Puncture wound of plantar aspect of foot Surgical History History of left shoulder replacement History of appendectomy Family History Other Family history of diabetes mellitus type I Family history of hyperlipidemia Family history of hypertension Family history of myocardial infarction Social History (Updated 03/10/25 @ 10:05 by April Larsen RN) Smoking Status: Current every day smoker tobacco type: cigarettes packs per day: 1 second hand exposure: Yes alcohol intake: never substance use type: marijuana current occupational status: disabled Travel in the last 8 weeks?: None household members: family and children housing: house current occupation: [employer] current occupational exposures/hazards: No caffeine: Yes Have you lived/traveled outside US in past 30 days?: No Contact w/someone who lives/traveled outside US past 30 days?: No Exposure to someone with infectious disease in past 14 days?: No Do you have a fever (greater than 100.4 F or 38 C)?: No Have you tested positive for COVID-19?: No Exposed to someone with COVID-19 in past 14 days?: No Do you have a sore throat?: No Do you have a cough?: No Do you have any weakness?: No Are you experiencing any nausea/vomitting?: No Do you have any diarrhea?: No Are you experiencing any unusual bleeding?: No Do you have any muscle aches/pain?: No Do you have any abdominal pain?: No Are you experiencing loss of taste or smell?: No Other Medical History Have you received the Flu Vaccine for this season: No Have you received the Pneumonia Vaccine: Yes Review of Systems Review of Systems Review of systems (narrative): Negative *Cardiovascular Comments: Negative *Gastrointestinal Comments: Negative *Genitourinary Comments: Negative *Musculoskeletal Comments: Negative *Neurologic Comments: Negative Meds Home Medications and Allergies Home Medications ?Medication ?Instructions ?Recorded ?Confirmed ?Type allopurinol 300 mg tablet See Rx Instructions .Route 0 10/02/23 03/08/25 Rx .COMPLEX #90 tabs cariprazine 1.5 mg capsule 1.5 mg PO DAILY anxiety #30 caps 10/02/23 03/08/25 Rx (Vraylar) fluticasone propionate 50 See Rx Instructions .Route 0 10/02/23 03/08/25 Rx mcg/actuation nasal .COMPLEX #16 grams spray,suspension losartan 50 mg-hydrochlorothiazide 1 tab PO DAILY #90 tabs 10/02/23 03/08/25 Rx 12.5 mg tablet meloxicam 15 mg tablet See Rx Instructions .Route 0 10/02/23 03/08/25 Rx .COMPLEX #30 tabs ergocalciferol (vitamin D2) 1,250 See Rx Instructions .Route 11/04/23 03/08/25 Rx mcg (50,000 unit) capsule .COMPLEX Supplement #14 caps cholecalciferol (vitamin D3) 25 See Rx Instructions .R oute 12/02/23 03/08/25 Rx mcg (1,000 unit) capsule .COMPLEX #90 caps tadalafil 10 mg tablet (Cialis) 10 mg PO DAILY PRN sex ual activity 12/02/23 03/08/25 Rx #10 tabs trazodone 50 mg tablet 50 mg PO DAILY 12/02/2302/17 History metformin 500 mg tablet See Rx Instructions .Route 0 02/17/24 03/08/25 Rx .COMPLEX #90 tabs bupropion HCl 150 mg tablet,12 hr See Rx Instructions .Route .COMPLEX 07/14/24 03/08/25 History sustained-release (Wellbutrin SR) escitalopram oxalate 20 mg tablet See Rx Instructions .Route .COMPLEX 07/14/24 03/08/25 History (Lexapro) gemfibrozil 600 mg tablet See Rx Instructions .Route 0 12/21/24 03/08/25 Rx .COMPLEX #60 tabs peg 3350-electrolytes 236 240 ml PO Q10M colonscopy #4 ,000 mL 02/24/25 Rx gram-22.74 gram-6.74 gram-5.86 gram solution (Golytely) New Prescriptions to Start Prescriptions: Allergies Allergy/AdvReac Type Severity Reaction Status Date / Time No Known Allergies Allergy Verified 03/10/25 10:11 Exam Data for Last 24 hours I & O for Last 24 hours: Intake & Output 03/07/25 03/08/25 03/09/25 03/10/25 23:59 23:59 23:59 23:59 Weight 240 lb *Routine HEENT Exam Head: Present normocephalic Eye: Present EOMI and PERRL ENT: Present mucous membranes moist *Routine Neck Exam Neck: Present supple *Routine Respiratory Exam Respiratory: Present CTA bilaterally *Routine Cardiovascular Exam Cardiovascular: Present RRR *Routine Abdominal Exam Abdominal: Present soft and normoactive bowel sounds; Absent tenderness *Routine Rectal Exam Rectal:: deferred *Routine Genitalia Exam Genitalia:: deferred *Routine Extremities Exam Extremities: Absent cyanosis, clubbing or edema *Routine Skin Exam Skin: Present warm; Absent rash *Routine Neurological Exam Neurological: Present alert and oriented X3 Assessment and Plan *Assessment and plan (1) Screening for colon cancer: Status: Acute Category: Medical Code(s): Z12.11 - Encounter for screening for malignant neoplasm of colon Plan A/P: 1. Screening for colon cancer is the preprocedural diagnosis. The patient will be anesthetized/sedated using MAC sedation. The patient has been seen and examined. Cardiac and lung assessment prior to the examination is stable. Proceed with planned screening colonoscopy.
[2025-03-10 09:57] VITALS: BP 123/61; PULSE 66; RESP 18; TEMP 36.2; O2SAT 94; BMI 33.5
[2025-03-10] MEDS: LACTATED RINGERS 1000ML 1,000 ML 50 ML IV (10:07)
[2025-03-10 10:21] LABS: POC Glucose,Bedside 96 (70-110)
--- NOTE | 2025-03-10 10:28 | EXP.ANES.CKL ---
[facility] Disclaimer: The information contained in this section may have been updated after the patient was seen, as this information can be updated by other users. Medical History Gout Atypical angina Anginal equivalent Family history of [place] (myocardial infarction) Family history of early CAD Atypical chest pain Persistent dry cough Puncture wound of plantar aspect of foot Surgical History History of left shoulder replacement History of appendectomy Family History Other Family history of diabetes mellitus type I Family history of hyperlipidemia Family history of hypertension Family history of myocardial infarction Social History (Updated 03/10/25 @ 10:05 by April Larsen RN) Smoking Status: Current every day smoker tobacco type: cigarettes packs per day: 1 second hand exposure: Yes alcohol intake: never substance use type: marijuana current occupational status: disabled Travel in the last 8 weeks?: None household members: family and children housing: house current occupation: landscape current occupational exposures/hazards: No caffeine: Yes Have you lived/traveled outside US in past 30 days?: No Contact w/someone who lives/traveled outside US past 30 days?: No Exposure to someone with infectious disease in past 14 days?: No Do you have a fever (greater than 100.4 F or 38 C)?: No Have you tested positive for COVID-19?: No Exposed to someone with COVID-19 in past 14 days?: No Do you have a sore throat?: No Do you have a cough?: No Do you have any weakness?: No Are you experiencing any nausea/vomitting?: No Do you have any diarrhea?: No Are you experiencing any unusual bleeding?: No Do you have any muscle aches/pain?: No Do you have any abdominal pain?: No Are you experiencing loss of taste or smell?: No [facility] Anesthesia Checklist Patient Identification Patient Identification: Verbal (Name & ) Structural Data Admitted From: Home Planned Operative Procedure/s: colonoscopy Consent for Planned Operative Procedure(s) Verified: Yes NPO Status Verified Time NPO: 00:00 Additional verifications Anesthesia Reactions: No Hx Blood Transfusions: No Blood Transfusion Reaction: No Airway Assessment Mallampati Score:: Class II C-Spine Mobility Assessed: Yes TMJ Mobility Assessed: Yes Dentition: Poor Dentition Neurological Assessment Level of Consciousness: Awake, Alert and Appropriate Anesthesia Plan Anesthesia Risk discussed: Yes Anesthesia Plan: Verified ASA Class: II Anesthesia Type: MAC
--- NOTE | 2025-03-10 11:25 | HMH.PROCNOTE ---
[facility] Procedure Note Date: 03/10/25 Time: 11:47 Procedure Note:: Colonoscopy Procedure Report: Colonoscopy with cold snare polypectomy Endoscopist: Dustin Galvan II, MD Referring physician: SARAHI Villa Date of Procedure: March 10, 2025 Equipment: Olympus [id number] adult colonoscope Sedation: MAC sedation Indication: Mr. Burgess is a 54-year-old gentleman who is here for screening colonoscopy. He did have a negative Cologuard test 5 years ago. He reports no abdominal pain, weight loss, change in his bowel habits or rectal bleeding. He reports no family history of colon cancer. Procedure: Prior to the procedure, a history and physical exam was performed, and patient's medications and allergies were reviewed. The risks, benefits and alternatives of the sedation and procedure were discussed with the patient. All questions were answered and informed consent was obtained. The patient was brought to the procedure room. Patient identification and proposed procedure were verified by the physician and the nurse. The patient was placed in a left lateral decubitus position and the scope was passed under direct vision. Throughout the procedure, the patient's blood pressure, pulse, and oxygen saturations were monitored continuously. The colonoscopy was accomplished without difficulty. The patient tolerated the procedure well. Findings: On digital rectal examination there was normal rectal tone. There were no external hemorrhoids. The prostate was 2+, smooth, soft, symmetric without nodules. The colonoscope was introduced through the anal canal to the rectum and advanced to the cecum. The ileocecal valve and appendiceal orifice were identified. The scope was advanced a short distance into the ileum which appeared grossly normal. The scope was then withdrawn into the colon. There were 3 colon polyps (ascending x 1 (5 mm), descending x 1 (14 mm) and rectum x 1 (3 mm)). These were all removed via cold snare polypectomy. The larger 14 mm was on haustral fold and carefully examined to make sure that all adenomatous tissue was removed. There were scattered diverticuli throughout the colon but more predominantly in the descending and sigmoid colon (LEFT colon). The rectum itself was normal. Upon retroflexion within the rectum there were grade 2 internal hemorrhoids. The preparation was excellent throughout with [place] Preparation Score of 9. The cecal time was 14 minutes. Impression: 1. Descending colon polyp (14 mm) 2. 2 additional diminutive polyps 3. Pandiverticulosis 4. Grade 1-2 internal hemorrhoids Plan: I will follow-up the polyp histology. Based upon the size of the 14 mm adenomatous colon polyp, I would recommend repeat surveillance colonoscopy again in 3 years. I would encourage psyllium bulking fiber supplementation on a long-term daily maintenance basis. I will discuss the findings with the patient and family.
[2025-03-10 11:47] VITALS: BP 117/51; PULSE 66; RESP 18; TEMP 36.4; O2SAT 92
[2025-03-10 11:57] VITALS: BP 98/61; PULSE 74; RESP 18; O2SAT 94
[2025-03-10 12:07] VITALS: BP 115/64; PULSE 60; RESP 18; O2SAT 96
[2025-03-10 12:16] VITALS: BP 142/83; PULSE 68; RESP 16; O2SAT 96
== END 2025-03-10 12:19 | disposition home or self-care (01) ==
PROVIDERS: PCP Nurse Practitioner Family; Visit Provider Internal Medicine Gastroenterology
PROC: 0DJD8ZZ Inspection of Lower Intestinal Tract, Via Natural or Artificial Opening Endoscopic (ICD-10-PCS; CPT 45378; principal; 2025-03-10 11:00)
DX: Z12.11 Encounter for screening for malignant neoplasm of colon (principal); D12.7 Benign neoplasm of rectosigmoid junction; K57.90 Diverticulosis of intestine, part unspecified, without perforation or abscess without bleeding; K64.0 First degree hemorrhoids; K64.1 Second degree hemorrhoids; M10.9 Gout, unspecified; F17.210 Nicotine dependence, cigarettes, uncomplicated; Z79.84 Long term (current) use of oral hypoglycemic drugs; Z79.899 Other long term (current) drug therapy
CPT/HCPCS: 45385; 82962; J2003; J2704; J7120

== ENCOUNTER 2025-04-13 07:50 | Outpatient (CLI) | payer MEDICARE, MEDICAID, SELFPAY ==
--- OUTSIDE RECORDS SUMMARY | 2025-04-13 07:53 | XMS_ITS | Clinical Summary ---
Author Organization [facility] Address [address] [place] [address] Care Team Providers Care Assessment Services Manager Name Role Phone Mauri Victor MD Primary Care Provider [phone] Allergies No known active allergies Medications allopurinol (ZYLOPRIM) 100 MG tablet Take 100 mg by mouth 2 (Two) Times a Day. Active diazePAM (VALIUM) 5 MG tablet Take 5 mg by mouth At Night As Needed for Anxiety. Active lisinopril (PRINIVIL,ZESTR IL) 10 MG tablet Take 20 mg by mouth Daily. Active buPROPion SR (WELLBUTRIN SR) 150 MG 12 hr tablet Take 150 mg by mouth 2 (Two) Times a Day. Active ondansetron (ZOFRAN) 4 MG tablet Take 1 tablet by mouth Every 8 (Eight) Hours As Needed. Post op nausea 30 tablet 01/10/2022 2:19 PM EDT 2 Active Additional Information Patient taking differently:4 mg Oral Every 8 Hours PRN,Nausea, Vomiting, Informant: Self, Reported on 01/12/2022 gabapentin (NEURONTIN) 600 MG tablet Take 600 mg by mouth 3 (Three) Times a Day. Active oxyCODONE-aceta minophen (Percocet) 10-325 MG per tablet Take 1 tablet by mouth Every 4 (Four) Hours As Needed for Moderate Pain. 60 tablet 01/12/2022 12:56 PM EDT 2 Active Active Problems No known active problems Immunizations Immunization Administration Dates Next Due COVID-19 (MODERNA) 1st,2nd,3 rd Dose Monovalent 09/07/2021,01/07/2021,12/10/2020 Social History Tobacco Use Types Packs/Day Years Used Date Smoking Tobacco: Every Day Cigarettes 0.5 18.6 Started: 2006 Smokeless Tobacco: Never Alcohol Use Standard Drinks/Week Comments No 0 (1 standard drink = 0.6 oz pur e alcohol) Abuse Screen Answer Date Recorded Unsafe at Home or Work/School Not on file Feels Threatened by Someone? Not on file 07/2023 Does Anyone Keep You from Co ntacting Others or Doint Things Outside the Home? Not on file 05/30/2023 Physical Sign of Abuse Present Not on file 1 Housing Stability Answer Date Recorded Current Living Arrangements Not on file 05/19 Potentially Unsafe Housing Conditions Not on trisha e 05/30/2023 Family and Community Support Answer Franko e Recorded Help with Day-to-Day Activities Not on file 05/30/2023 Lonely or Isolated Not on file 05/30/2023 Employment Answer Date Recorded Do you want help finding or keeping work or a abhi b? Not on file 05/30/2023 Disabilities Answer Date Recorded Concentrating, Remembering, or Making Decisions Difficulty Not on file 05/30/2023 Doing Errands Independently Difficulty Not on fi le 05/30/2023 Education Answer Date Recorded Help with school or training? Not on file Preferred Language Not on file 05/30/2023 Sex and Gender Information Value Date Recorded Sex Assigned at Not on file Legal Sex Male 9:09 PM EDT Gender Identity Not on file Sexual Orientation Not on file Last Filed Vital Signs Vital Sign Reading Time Taken Comments Blood Pressure 112/78 01/12/2022 1:30 PM EDT Pulse 68 01/12/2022 1:30 PM EDT Temperature 36.6 C (97.8 F) 01/12/2022 1:30 PM EDT Respiratory Rate 18 01/12/2022 1:30 PM EDT Oxygen Saturation 94% 01/12/2022 1:30 PM EDT Inhaled Oxygen Concentration - - Weight 100 kg (221 lb) 01/12/2022 9:26 AM EDT Height 182.9 cm (6') 01/12/2022 9:26 AM EDT Body Mass Index 29.97 01/12/2022 9:26 AM EDT Plan of Treatment Health Maintenance Due Date Last Done Comments COLOGUARD 2014 COLON CANCER SCREENING 5 YEA R SIGMOIDOSCOPY 2014 COLONOSCOPY [address] CANCER SCREENING 2014 [address] COLONOGRAPHY 2014 FECAL OCCULT BLOOD TEST 2014 FIT Testing (1 year) 2014 ZOSTER VACCINE (1 of 2) 2019 Pneumococcal Vaccine 50+ (2 of 2 - PCV) 09/09/2021 09/09/2020 ANNUAL WELLNESS VISIT 01/10/2022 HEPATITIS C SCREENING 01/10/2022 COVID-19 Vaccine ( season) 2024 09/07/2021, 01/07/2021, 12/10/2020 INFLUENZA VACCINE 05/19/2025 06/12/2023, , 05/18/2020 TDAP/TD VACCINES (2 - Td or Tdap) 06/14/2032 022 Insurance MEDICARE ADVANTAGE Care Teams Assessment Services Manager Relationship Specialty Start Date End Date Mauri Victor MD [address] [place] [address] PCP - General Family Medicine 03/12/24
--- OUTSIDE RECORDS SUMMARY | 2025-04-13 07:53 | XMS_ITS | Encounter Summary ---
Author Organization Healthcare Address [address] [place] [address] Care Team Providers Care Pearl Glue Drier Name Role Phone Bhavin Ring MD Primary Care Provider [phone] Mauri Victor MD Primary Care Provider [phone] Encounter Details Date Type Department Care Team (Late st Contact Info) Description 04/30/2023 Orders Only External Location [address] [place] [address] Provider, External Social History Tobacco Use Types Packs/Day Years Used Date Smoking Tobacco: Every Day Alcohol Use Standard Drinks/Week Comments No 0 (1 standard drink = 0.6 oz pur e alcohol) Sex and Gender Information Value Date Recorded Sex Assigned at Not on file Legal Sex Male 6:03 PM EDT Gender Identity Not on file Sexual Orientation Not on file documented as of this encounter Plan of Treatment Upcoming Encounters Date Type Department Care Team (Latest Contact Info) Description 06/04/2025 7:30 AM EDT Hospital Encounter [facility] [address] [place] [address] 06/04/2025 7:30 AM EDT - 06/04/2025 11:25 AM EDT Surgery [facility] [address] [place] [address] Pacheco Estrada, DPM [address] [facility] [address] [place] [address] Right Ankle Joint & Subtalar Joint Fusion [01820 (CPT )] 06/21/2025 8:10 AM EST Office Visit [facility] Orthopaedic Surgery & Sports Medicine [address] [place] [address] Pacheco Estrada, DPEverardo [address] [place] [address] Scheduled Procedures Name Priority Associated Diagnoses Date/Ti me FUSION, JOINT, ANKLE Secondary osteoarthritis, right ankle and foot 06/04/2025 7:30 AM EDT FUSION, SUBTALAR JOINT Secondary osteoarthritis, right ankle and foot 06/04/2025 7:30 AM EDT documented as of this encounter Procedures Procedure Name Priority Date/Time Associated Diagnosis Comments MR MSK OUTSIDE IMAGES 04/30/2023 8:08 AM EDT documented in this encounter Results * MR MSK OUTSIDE IMAGES (04/30/2023 8:08 AM EDT) Anatomical Region Laterality Modality Magnetic Resonan ce 04/30/2023 8:08 AM EDT us External Provider IMG MRI PROCEDURES Final Resul t documented in this encounter Visit Diagnoses Not on filedocumented in this encounter Care Teams Pearl Glue Drier Relationship Specialty Start Date End Date Bhavin Ring MD [address] [place] [address] PCP - General 12/30/20 08/30/24 Mauri Vicotr MD [address] [place] [address] [address] [place] [address] PCP - General 08/31/24 documented as of this encounter
--- OUTSIDE RECORDS SUMMARY | 2025-04-13 07:53 | XMS_ITS | Encounter Summary ---
Author Organization Healthcare Address [address] [place] [address] Care Team Providers Care Mobile Application Tester Name Role Phone Bhavin Ring MD Primary Care Provider + [phone] Mauri Victor MD Primary Care Provider [phone] Encounter Details Date Type Department Care Team (Late st Contact Info) Description 07/04/2023 Orders Only External Location [address] [place] [address] Provider, External Social History Tobacco Use Types [...] Hospital Encounter [facility] [address] [place] [address] 06/04/2025 7:30 AM EDT - 06/04/2025 11:25 AM EDT Surgery [facility] Operating Room [address] [place] [address] Pacheco Estrada, DPM [address] [facility] [address] [place] [address] Right Ankle Joint & Subtalar Joint Fusion [[id number] (CPT )] 06/21/2025 8:10 AM EST Office Visit [facility] Orthopaedic Surgery & Sports Medicine [address] [place] [address] Pacheco Estrada, KALINA [address] [place] [address] Scheduled Procedures Name Priority Associated Diagnoses Date/Ti me FUSION, JOINT, ANKLE Secondary osteoarthritis, right ankle and foot 06/04/2025 7:30 AM EDT FUSION, SUBTALAR JOINT Secondary osteoarthritis, right ankle and foot 06/04/2025 7:30 AM EDT documented as of this encounter Procedures Procedure Name Priority Date/Time Associated Diagnosis Comments XR MSK OUTSIDE IMAGES 07/04/2023 9:21 AM EST documented in this encounter Results * XR MSK OUTSIDE IMAGES (07/04/2023 9:21 AM EST) Anatomical Region Laterality Modality Radiographic Brittani ging 07/04/2023 9:21 AM EST us External Provider IMG XR PROCEDURES Final Result documented in this encounter Visit Diagnoses Not on filedocumented in this encounter Care Teams Mobile Application Tester Relationship Specialty Start Date End Date Bhavin Ring MD [address] [place] [address] PCP - General 12/30/20 08/30/24 Mauri Victor MD [address] [place], [place] [address] [place] [address] PCP - General 08/31/24 documented as of this encounter
--- OUTSIDE RECORDS SUMMARY | 2025-04-13 07:53 | XMS_ITS | Encounter Summary ---
Author Organization Healthcare Address [address] [place] [address] Care Team Providers Care Farm Laborer Name Role Phone Bhavin Ring MD Primary Care Provider + [phone] Mauri Victor MD Primary Care Provider [phone] Encounter Details Date Type Department Care Team (Late st Contact Info) Description 04/30/2023 Orders Only External Location [address] [place] [address] Provider, External Social History Tobacco Use Types [...] Encounter [facility] Operating Room [address] [place] [address] 06/04/2025 7:30 AM EDT - 06/04/2025 11:25 AM EDT Surgery [facility] Operating Room [address] [place] [address] Pacheco Estrada, DPM [address] [facility] [address] [place] [address] Right Ankle Joint & Subtalar Joint Fusion [[id number] (CPT )] 06/21/2025 8:10 AM EST Office Visit [facility] Orthopaedic Surgery & Sports Medicine [address] 1[address] [place] [address] Pacheco Estrada, DPEverardo [address] [place] [address] Scheduled Procedures Name Priority Associated [...] on filedocumented in this encounter Care Teams Farm Laborer Relationship Specialty Start Date End Date Bhavin Ring MD [address] [place] [address] PCP - General 12/30/20 08/30/24 Mauri Victor MD [address] [place] [address] [address] [place] [address] PCP - General 08/31/24 documented as of this encounter
--- OUTSIDE RECORDS SUMMARY | 2025-04-13 07:53 | XMS_ITS | Encounter Summary ---
Author Organization Healthcare Address [address] [place] [address] Care Team Providers Care Animal Stunner Name Role Phone Bhavin Ring MD Primary Care Provider + [phone] Mauri Victor MD Primary Care Provider [phone] Encounter Details Date Type Department Care Team (Late st Contact Info) Description 07/04/2023 Orders Only External Location [address] [place] [address] Provider, External Social History Tobacco Use Types [...] Encounter [facility] Operating Room [address] [place] [address] 06/04/2025 7:30 AM EDT - 06/04/2025 11:25 AM EDT Surgery [facility] S Operating Room [address] [place] [address] Pacheco Estrada, DPM [address] [facility] [address] [place] [address] Right Ankle Joint & Subtalar Joint Fusion [[id number] (CPT )] 06/21/2025 8:10 AM EST Office Visit [facility] Orthopaedic Surgery & Sports Medicine [address] 1[address] [place] [address] Pacheco Estrada, KALINA [address] [place] [address] Scheduled Procedures Name Priority Associated Diagnoses Date/Ti [...] on filedocumented in this encounter Care Teams Animal Stunner Relationship Specialty Start Date End Date Bhavin Ring MD [address] [place] [address] PCP - General 12/30/20 08/30/24 Mauri Victor MD [address] [place], [place] [address] [place] [address] PCP - General 08/31/24 documented as of this encounter
--- OUTSIDE RECORDS SUMMARY | 2025-04-13 07:53 | XMS_ITS | Encounter Summary ---
Author Organization Healthcare Address [address] [place] [address] Care Team Providers Care Deployment Engineer Name Role Phone Bhavin Ring MD Primary Care Provider + [phone] Mauri Victor MD Primary Care Provider [phone] Encounter Details Date Type Department Care Team (Late st Contact Info) Description 05/27/2023 Orders Only External Location [address] [place] [address] Provider, External Social History Tobacco Use Types [...] Encounter [facility] Operating Room [address] [place] [address] 06/04/2025 7:30 AM EDT - 06/04/2025 11:25 AM EDT Surgery [facility] S Operating Room [address] [place] [address] Pacheco Estrada, DPM [address] [facility] [address] [place] [address] Right Ankle Joint & Subtalar Joint Fusion [[id number] (CPT )] 06/21/2025 8:10 AM EST Office Visit [facility] Orthopaedic Surgery & Sports Medicine [address], 1[address] [place] [address] Pacheco Estrada, KALINA [address] [place] [address] Scheduled Procedures Name Priority Associated Diagnoses Date/Ti me FUSION, JOINT, ANKLE Secondary osteoarthritis, right ankle and foot 06/04/2025 7:30 AM EDT FUSION, SUBTALAR JOINT Secondary osteoarthritis, right ankle and foot 06/04/2025 7:30 AM EDT documented as of this encounter Procedures Procedure Name Priority Date/Time Associated Diagnosis Comments CT MSK OUTSIDE IMAGES 05/27/2023 10:46 AM EDT documented in this encounter Results * CT MSK OUTSIDE IMAGES (05/27/2023 10:46 AM EDT) Anatomical Region Laterality Modality Computed Tomogra phy 05/27/2023 10:4 6 AM EDT us External Provider IMG CT PROCEDURES Final Result documented in this encounter Visit Diagnoses Not on filedocumented in this encounter Care Teams Deployment Engineer Relationship Specialty Start Date End Date Bhavin Ring MD [address] [place] [address] PCP - General 12/30/20 08/30/24 Mauri Victor MD [address] [place], [place] [address] [address] PCP - General 08/31/24 documented as of this encounter
--- OUTSIDE RECORDS SUMMARY | 2025-04-13 07:54 | XMS_ITS | Encounter Summary ---
Author Organization Healthcare Address [address] [place] [address] Care Team Providers Care Laundry Washer Name Role Phone Bhavin Ring MD Primary Care Provider + [phone] Mauri Victor MD Primary Care Provider [phone] Encounter Details Date Type Department Care Team (Late st Contact Info) Description 09/27/2023 Orders Only External Location [address] [place] [address] Provider, External Social History Tobacco Use Types [...] Encounter [facility] Operating Room [address] [place] [address] 06/04/2025 7:30 AM EDT - 06/04/2025 11:25 AM EDT Surgery [facility] S Operating Room [address] [place] [address] Pacheco Estrada, DPM [address] [facility] [address] [place] [address] Right Ankle Joint & Subtalar Joint Fusion [[id number] (CPT )] 06/21/2025 8:10 AM EST Office Visit [facility] Orthopaedic Surgery & Sports Medicine [address] 1[address] [place] [address] Pacheco Estrada, KALINA [address] [place] [address] Scheduled Procedures Name Priority Associated Diagnoses Date/Ti me FUSION, JOINT, ANKLE Secondary osteoarthritis, right ankle and foot 06/04/2025 7:30 AM EDT FUSION, SUBTALAR JOINT Secondary osteoarthritis, right ankle and foot 06/04/2025 7:30 AM EDT documented as of this encounter Procedures Procedure Name Priority Date/Time Associated Diagnosis Comments XR MSK OUTSIDE IMAGES 09/27/2023 12:31 PM EST documented in this encounter Results * XR MSK OUTSIDE IMAGES (09/27/2023 12:31 PM EST) Anatomical Region Laterality Modality Radiographic Brittani ging 09/27/2023 12:3 1 PM EST us External Provider IMG XR PROCEDURES Final Result documented in this encounter Visit Diagnoses Not on filedocumented in this encounter Care Teams Laundry Washer Relationship Specialty Start Date End Date Bhavin Ring MD [address] [place] [address] PCP - General 12/30/20 08/30/24 Mauri Victor MD [address] [place] [address] [address] [place] [address] PCP - General 08/31/24 documented as of this encounter
--- OUTSIDE RECORDS SUMMARY | 2025-04-13 07:54 | XMS_ITS | Encounter Summary ---
Author Organization Healthcare Address [address] [place] [address] Care Team Providers Care Alumni Relations Manager Name Role Phone Bhavin Ring MD Primary Care Provider + [phone] Mauri Victor MD Primary Care Provider [phone] Encounter Details Date Type Department Care Team (Late st Contact Info) Description 09/27/2023 Orders Only External Location [address] [place] [address] Provider, External Social History Tobacco Use Types [...] Encounter [facility] Operating Room [address] [place] [address] 06/04/2025 7:30 AM EDT - 06/04/2025 11:25 AM EDT Surgery [facility] S Operating Room [address] [place] [address] Pacheco Estrada, DPM [address] [facility] [address] [place] [address] Right Ankle Joint & Subtalar Joint Fusion [[id number] (CPT )] 06/21/2025 8:10 AM EST Office Visit [facility] Orthopaedic Surgery & Sports Medicine [address] 1[address] [place] [address] Pacheco Estrada, KALINA [address] [place] [address] Scheduled Procedures Name Priority Associated [...] on filedocumented in this encounter Care Teams Alumni Relations Manager Relationship Specialty Start Date End Date Bhavin Ring MD [address] [place] [address] PCP - General 12/30/20 08/30/24 Mauri Victor MD [address] [place] [address] [address] [place] [address] PCP - General 08/31/24 documented as of this encounter
--- OUTSIDE RECORDS SUMMARY | 2025-04-13 07:54 | XMS_ITS | Encounter Summary ---
Author Organization Healthcare Address [address] [place] [address] Care Team Providers Care Batch Plant Supervisor Name Role Phone Bhavin Ring MD Primary Care Provider + [phone] Mauri Victor MD Primary Care Provider [phone] Encounter Details Date Type Department Care Team (Late st Contact Info) Description 07/04/2023 Orders Only External Location [address] [place] [address] Provider, External Social History Tobacco Use Types [...] Encounter [facility] S Operating Room [address] [place] [address] 06/04/2025 7:30 AM EDT - 06/04/2025 11:25 AM EDT Surgery P[facility] S Operating Room [address] [place] [address] Pacheco Estrada, DPM [address] [facility] [address] [place] [address] Right Ankle Joint & Subtalar Joint Fusion [[id number] (CPT )] 06/21/2025 8:10 AM EST Office Visit [facility] Orthopaedic Surgery & Sports Medicine [address] 1[address] [place] [address] Pacheco Estrada, KALINA [address] [place] [address] Scheduled Procedures Name Priority Associated Diagnoses Date/Ti [...] on filedocumented in this encounter Care Teams Batch Plant Supervisor Relationship Specialty Start Date End Date Bhavin Ring MD [address] [place] [address] PCP - General 12/30/20 08/30/24 Mauri Victor MD [address] [place], [place] [address] [place] [address] PCP - General 08/31/24 documented as of this encounter
--- OUTSIDE RECORDS SUMMARY | 2025-04-13 07:54 | XMS_ITS | Clinical Summary ---
Author Organization Healthcare Address [address] [place] [address] Care Team Providers Care Runner Out Name Role Phone Mauri Victor MD Primary Care Provider [phone] Allergies No known active allergies Medications allopurinol (Zyloprim) 300 MG tablet TAKE ONE (1) TABLET EVERY DAY BY ORAL ROUTE. Active gabapentin (Neurontin) 800 MG tablet TAKE ONE (1) TABLET THREE (3) TIMES A DAY BY ORAL ROUTE FOR 30 DAYS. 07/28/2024 Active gemfibrozil (Lopid) 600 MG tablet Take 1 tablet (600 mg) by mouth 2 (two) times a day. 06/01/2024 Active lisinopril 10 MG tablet Take 2 tablets (20 mg) by mouth 1 (one) time each day. 10/10/2020 Active Loratadine 10 MG capsule 10/10/2020 Active losartan-hydroC HLOROthiazide (Hyzaar) 50-12.5 MG tablet TAKE ONE (1) TABLET EVERY DAY BY ORAL ROUTE. 08/04/2024 Active meloxicam (Mobic) 15 MG tablet TAKE ONE TABLET BY MOUTH EVERY DAY --TAKE WITH FOOD-- Active metFORMIN (Glucophage) 500 MG tablet take one (1) tablet by mouth daily 06/10/2024 Active Active Problems Problem Noted Date Diagnosed Date Secondary osteoarthritis, right ankle and foot 0 09/28/2024 Family History Medical History Relation Name Comments Hypertension Father Stroke Father Heart attack Mother Hypertension Mother Other cancer Mother Stroke Other 1 Hypertension Other 2 Other cancer Other 3 Heart attack Other 4 Relation Name Status Comments Father Mother Other 1 Other 2 Other 3 Other 4 Social History Tobacco Use Types Packs/Day Years Used Date Smoking Tobacco: Former Cigarettes 0 09/24/2024 - 1984 Smokeless Tobacco: Never Tobacco Cessation:Counseling Given: Not Answered Alcohol Use Standard Drinks/Week Comments No 0 (1 standard drink = 0.6 oz pur e alcohol) PHQ-2 Answer Date Recorded Patient Health Questionnaire-2 Score 0 08/31/2024 PHQ-9 Answer Date Recorded Patient Health Questionnaire-9 Score 0 08/31/2024 Sex and Gender Information Value Date Recorded Sex Assigned at Not on file Legal Sex Male 6:03 PM EDT Gender Identity Not on file Sexual Orientation Not on file Last Filed Vital Signs Vital Sign Reading Time Taken Comments Blood Pressure 117/73 09/28/2024 9:27 AM EST Pulse 55 09/28/2024 9:27 AM EST Temperature 37.1 C (98.8 F) 08/31/2024 3:37 PM EST Respiratory Rate - - Oxygen Saturation 96% 09/28/2024 9:27 AM EST Inhaled Oxygen Concentration - - Weight 107 kg (236 lb) 09/28/2024 9:27 AM EST Height 180.3 cm (5' 11 ) 09/28/2024 9:27 AM EST Body Mass Index 32.92 09/28/2024 9:27 AM EST Plan of Treatment Upcoming Encounters Date Type Department Care Team (Latest Contact Info) Description 06/04/2025 7:30 AM EDT Hospital Encounter [facility] Operating Room [address] [place] [address] 06/04/2025 7:30 AM EDT - 06/04/2025 11:25 AM EDT Surgery [facility] Operating Room [address] [place] [address] Pacheco Estrada DPM [address] [place] [address] Right Ankle Joint & Subtalar Joint Fusion [[id number] (CPT )] 06/21/2025 8:10 AM EST Office Visit [facility] Orthopaedic Surgery & Sports Medicine [address] [place] [address] Ahmed, Ali S, DPM [address] [place] [address] Scheduled Procedures Name Priority Associated Diagnoses Date/Ti me FUSION, JOINT, ANKLE Secondary osteoarthritis, right ankle and foot 06/04/2025 7:30 AM EDT FUSION, SUBTALAR JOINT Secondary osteoarthritis, right ankle and foot 06/04/2025 7:30 AM EDT Health Maintenance Due Date Last Done Comments [facility]-HIV Screening 1969 [facility]-Hepatitis C Screening 1969 [facility]-Medicare Annual Wellness (AWV) 1969 [facility]-/Child/Adol SDOH Screenings 1969 [facility]- SDOH Screenings 1987 [facility]-Adult SDOH Screenings 1987 [facility]-Hepatitis B Vaccines (1 of 3 - 19+ 3-dose series) 1988 CT Colonography 2014 Colonoscopy 2014 FIT-DNA 2014 FIT 2014 FOBT 2014 Sigmoidoscopy 2014 [facility]-Colorectal Cancer Screening 2014 [facility]-Pneumococcal Vaccine: 50+ Years (2 of 2 - PCV) 09/09/2021 09/09/2020 [facility]DL-MACIN-30 Vaccine (4 - 2023- season) 2024 09/07/2021, 01/07/2021, 12/10/2020 [facility]-Zoster Vaccines (2 of 2) 03/19/2025 01/22/2025 [facility]-Influenza Vaccine (#1) 04/19/202507/28, 06/12/2023, 05/29/2021, Additional history exists [facility]-Depression Screening 08/31/2025 08/31/2024, 08/19 [facility]-DTaP,Tdap,and Td Vaccines (2 - Td or Tdap) 06/14/2032 06/14/2022 [facility]-Obesity Intervention Completed 09/28/2024, 08/19 HPV Vaccines Aged Out No longer eligi ble based on patient's age to complete this topic [facility]-HIB Vaccines Aged Out No longer e ligible based on patient's age to complete this topic [facility]-Hepatitis A Vaccines Aged Out No longer eligible based on patient's age to complete this topic [facility]-IPV Vaccines Aged Out No longer e ligible based on patient's age to complete this topic [facility]-Rotavirus Vaccines Aged Out No lo nger eligible based on patient's age to complete this topic Insurance [employer] Care Teams Runner Out Relationship Specialty Start Date End Date Mauri Victor MD [address] [place] [address] PCP - General 08/31/24
[2025-04-13 08:35] VITALS: PULSE 85; PULSE 90
[2025-04-13] MEDS: ALBUTEROL 0.083% 2.5 MG/3 ML NEB IH (08:35)
== END 2025-04-13 23:59 | disposition home or self-care (01) ==
LOC: RT 07:51
PROVIDERS: PCP Nurse Practitioner Family; Visit Provider Nurse Practitioner Family
DX: R06.2 Wheezing (principal)
CPT/HCPCS: 94010; 94640; 94727; 94729